=== PATIENT | male | born 1965 | race Caucasian/White ===

== ENCOUNTER 2017-07-21 13:08 | Inpatient (IN) | payer OTHER ==
[~2017-07-21] VITALS: Ht 180.3 cm; Wt 118.6 kg
[~2017-07-21 13:08] MED LIST: LIDOCAINE HCL 1% PF 5 ML SYRINGE OTHER ONE; PHENYLEPH/NS 1000 MCG/10 ML SYR IV ONE; PROPOFOL 200 MG/20 ML AMP IV ONE; SODIUM CHLORIDE 0.9% 10 ML VIAL IV ONE
[2017-07-21 13:15] VITALS: BP 121/61; PULSE 108; RESP 20; TEMP 97.5; O2SAT 96
[2017-07-21] MEDS ORDERED: PIPERACIL-TAZO 3.375 GM PREMIX 50 ML IV ONE (13:45)
[2017-07-21] MEDS ORDERED: VANCOMYCIN INJ 1,000 MG in SODIUM CHLOR 0.9% 250 ML INJ 250 ML IV ONE (13:45)
[2017-07-21] MEDS ORDERED: HYDROmorphone HCL PF 1 MG/ML VIAL IV PUSH ONE (13:45)
[2017-07-21 14:20] LABS: BASOPHIL # 0.1 TH/MM3 (0-0.2); BASOPHIL % 0.7 % (0.0-2.0); EOSINOPHIL # 0.1 TH/MM3 (0-0.4); EOSINOPHIL % 0.6 % (0.0-4.0); HEMATOCRIT 38.2 % (39.0-51.0); HEMOGLOBIN 13.7 GM/DL (13.0-17.0); LYMPH % 10.7 % (9.0-44.0); LYMPHOCYTE # 1.2 TH/MM3 (1.0-4.8); MEAN CELL VOLUME 87.8 FL (80.0-100.0); MEAN CORPUSCULAR HEMOGLOBIN 31.6 PG (27.0-34.0); MEAN PLATELET VOLUME 7.4 FL (7.0-11.0); MONO % 8.9 % (0.0-8.0); NEUT % 79.1 % (16.0-70.0); PLATELET COUNT 272 TH/MM3 (150-450); RED BLOOD COUNT 4.35 MIL/MM3 (4.50-5.90); RED CELL DISTRIBUTION WIDTH 12.9 % (11.6-17.2); WHITE BLOOD COUNT 11.3 TH/MM3 (4.0-11.0)
--- NOTE | 2017-07-21 14:24 | RADRPT ---
EXAM DATE: 07/21/2017 2:14 PM EDT AGE/SEX: 52 years / Male INDICATIONS: Pain. Diabetic foot. CLINICAL DATA: This is the patient's initial encounter. Patient reports that signs and symptoms have been present for 1 day and indicates a pain score of 10/10. MEDICAL/SURGICAL HISTORY: Diabetes. None. COMPARISON: No prior [facility] exams available for comparison. FINDINGS: Multiple views of the foot reveal soft tissue swelling involving the region surrounding the fifth toe . Scattered subcutaneous air is seen between the fourth and fifth metatarsal bones. No radiopaque for eign body. No destructive changes within the adjacent bony structures. No fracture or dislocation. CONCLUSION: Radiographic findings consistent with cellulitis. Electronically signed by: Lukasz Rajan MD 07/21/2017 2:22 PM EDT
--- NOTE | 2017-07-21 14:24 | RADRPT ---
EXAM DATE: 07/21/2017 2:18 PM EDT AGE/SEX: 52 years / Male INDICATIONS: Pain. CLINICAL DATA: This is the patient's initial encounter. Patient reports that signs and symptoms have been present for 1 day and indicates a pain score of 10/10. MEDICAL/SURGICAL HISTORY: Diabetes. None. COMPARISON: No prior [facility] exams available for comparison. FINDINGS: Bony structures are intact and in normal alignment. Degenerative changes involving the tibiotalar og nt as well as the mid foot. Spurring of the calcaneus.. Osseous density is normal. Soft tissues are unremarkable. No radiopaque foreign bodies seen. CONCLUSION: Degenerative changes. No acute abnormality. Electronically signed by: Lukasz Rajan MD 07/21/2017 2:23 PM EDT
[2017-07-21] MEDS ORDERED: HYDROmorphone HCL PF 2 MG/ML VIAL IV PUSH ONE (14:30)
[2017-07-21 14:33] LABS: INTERNATIONAL NORMALIZED RATIO 1.1 RATIO; LACTIC ACID SEPSIS PROTOCOL 2.1 mmol/L (0.4-2.0); PROTHROMBIN TIME - PATIENT 11.4 SEC (9.8-11.6)
[2017-07-21 14:37] LABS: ALBUMIN 3.1 GM/DL (3.4-5.0); AST (GOT) 16 U/L (15-37); BLOOD UREA NITROGEN 18 MG/DL (7-18); CALCIUM 9.1 MG/DL (8.5-10.1); CHLORIDE 91 MEQ/L (98-107); CREATININE 1.62 MG/DL (0.60-1.30); GLOMERULAR FILTRATION RATE 45 ML/MIN (>89); GLUCOSE,RANDOM 330 MG/DL (74-106); SODIUM (NA) 127 MEQ/L (136-145)
[2017-07-21 14:38] LABS: ALT (GPT) 17 U/L (12-78)
[2017-07-21 14:39] VITALS: BP 110/72; PULSE 101; RESP 18; O2SAT 97
[2017-07-21 14:40] LABS: ALKALINE PHOSPHATASE 121 U/L (45-117); TOTAL PROTEIN 8.2 GM/DL (6.4-8.2)
[2017-07-21] MEDS ORDERED: SENNOSIDES 8.6 MG TAB PO PRN (15:45)
[2017-07-21] MEDS ORDERED: ACETAMINOPHEN/HYDROcodone 325 MG/5 MG TAB PO PRN (15:45)
[2017-07-21] MEDS ORDERED: NALOXONE HCL 0.4 MG/ML AMP IV PUSH PRN (15:45)
[2017-07-21] MEDS ORDERED: LACTULOSE SYRUP 20 GM/30 ML CUP PO PRN (15:45)
[2017-07-21] MEDS ORDERED: MAGNESIUM HYDROXIDE SUSP 30 ML CUP PO PRN (15:45)
[2017-07-21] MEDS ORDERED: BISACODYL 10 MG SUPP RECTAL PRN (15:45)
[2017-07-21] MEDS ORDERED: ACETAMINOPHEN/HYDROcodone 325 MG/10 MG TAB PO PRN (15:45)
[2017-07-21] MEDS ORDERED: METOCLOPRAMIDE HCL 10 MG/2 ML VIAL IV PUSH PRN (15:45)
--- NOTE | 2017-07-21 15:52 | PD ---
HPI Chief Complaint: Skin Problem Time Seen by Provider: 13:29 Travel History International Travel<30 days: No Contact w/Intl Traveler<30days: No Traveled to known affect area: No History of Present Illness HPI 52-year-old male that presents to the ED for evaluation of right foot infection. Per patient he has a significant history of left foot infection in the past. Per patient he lost his foot secondary to infection. He has a history of MRSA. He states that he is not from town but currently lives here now. Per patient he had the amputation done at a different hospital in a different area. Per patient is been doing well except that he was recently evaluated for an abscess on his back that require incision and drainage and is currently on antibiotics. Per patient he developed the swelling and pain on the right foot since this morning. There is significant swelling and erythema as well as darkening of the skin on the right fifth toe. Very tender to touch. Warm to touch. Patient denies any fevers chills or sweats. Per patient the pain is 10 out of 10. Denies any other medical issues. He denies any history of diabetes. He does have an allergy to tetanus vaccine. Has not seen anybody for this. No other medical issues. PFSH Past Medical History Diminished Hearing: No ?: Not Social History Alcohol Use: Yes Tobacco Use: Yes Substance Use: Yes (MARIJUANA, COCAINE) Allergies-Medications (Allergen,Severity, Reaction): Coded Allergies: Tetanus Vaccines and Toxoid (Verified Allergy, Intermediate, ARM SWELLING , VOMITING, 07/21/17) Reported Meds & Prescriptions Reported Meds & Active Scripts Active No Active Prescriptions or Reported Medications Review of Systems Except as stated in HPI: all other systems reviewed are Neg Physical Exam Narrative GENERAL: SKIN: Warm and dry. HEAD: Atraumatic. Normocephalic. EYES: Pupils equal and round. No scleral icterus. No injection or drainage. ENT: No nasal bleeding or discharge. Mucous membranes pink and moist. Tongue is midline. No uvula deviation. NECK: Trachea midline. No JVD. CARDIOVASCULAR: Regular rate and rhythm. No murmurs, S3, S4. RESPIRATORY: No accessory muscle use. Clear to auscultation. Breath sounds equal bilaterally. GASTROINTESTINAL: Abdomen soft, non-tender, nondistended. Hepatic and splenic margins not palpable. MUSCULOSKELETAL: Extremities without clubbing, cyanosis, or edema. No obvious deformities. Full range of motion of the upper and lower extremities bilaterally. Patient does have significant erythema and swelling noted on the dorsal and plantar aspect of the lateral right foot. Patient does have black/ purple looking and swollen right fifth toe with erythema and swelling noted on the fourth and third toes. Very warm to touch. Some purulence noted on the plantar aspect. Patient appears to have some all dressings on the area. 2+ pulses bilaterally. NEUROLOGICAL: Awake and alert. No obvious cranial nerve deficits. Motor grossly within normal limits. Five out of 5 muscle strength in the arms and legs. Normal speech. PSYCHIATRIC: Appropriate mood and affect; insight and judgment normal. Data Data Last Documented VS Vital Signs Date Time Temp Pulse Resp B/P (MAP) Pulse Ox O2 Delivery O2 Flow Rate FiO2 07/21/17 14:39 101 18 110/72 (85) 97 Room Air 07/21/17 13:15 97.5 Orders Orders Complete Blood Count With Diff (07/21/17 13:38) Blood Culture (07/21/17 13:38) Wound Culture And Gram Stain (07/21/17 13:38) Wound Care (07/21/17 13:38) Prothrombin Time / Inr (Pt) (07/21/17 13:38) Act Partial Throm Time (Ptt) (07/21/17 13:38) C-Reactive Protein (Crp) (07/21/17 13:38) Magnesium (Mg) (07/21/17 13:38) Iv Access Insert/Monitor (07/21/17 13:38) Hydromorphone Pf Inj (Dilaudid Pf Inj) (07/21/17 13:45) Vancomycin Inj (Vancomycin Inj) (07/21/17 13:45) Piperacil-Tazo 3.375 Gm Premix (Zosyn 3. (07/21/17 13:45) Lactic Acid Sepsis Protocol (07/21/17 13:38) Foot, Complete ([id number]) (07/21/17 ) Ankle, Complete ([id number]) (07/21/17 ) Comprehensive Metabolic Panel (07/21/17 13:38) Hydromorphone Pf Inj (Dilaudid Pf Inj) (07/21/17 14:30) Mri Foot W&W/O Contrast (07/21/17 ) Admit To Inpatient (07/21/17 ) Vital Signs (Adult) Q4H (07/21/17 15:36) Activity Oob Ad Cande (07/21/17 15:36) Diet Npo (07/21/17 Dinner) Sodium Chlor 0.9% 1000 Ml Inj (Ns 1000 M (07/21/17 15:36) Sodium Chloride 0.9% Flush (Ns Flush) (07/21/17 15:45) Sodium Chloride 0.9% Flush (Ns Flush) (07/21/17 21:00) Metoclopramide Inj (Reglan Inj) (07/21/17 15:45) Basic Metabolic Panel (Bmp) (07/22/17 06:00) Complete Blood Count With Diff (07/22/17 06:00) Naloxone Inj (Narcan Inj) (07/21/17 15:45) Docusate Sodium-Senna (Yahaira-Colace) (07/21/17 21:00) Magnesium Hydroxide Liq (Milk Of Magnesi (07/21/17 15:45) Sennosides (Senokot) (07/21/17 15:45) Bisacodyl Supp (Dulcolax Supp) (07/21/17 15:45) Lactulose Liq (Lactulose Liq) (07/21/17 15:45) Inpatient Certification (07/21/17 ) Hemoglobin (Hgb) A1c (07/21/17 15:36) Vancomycin Inj (Vancomycin Inj) (07/21/17 15:45) Piperacil-Tazo 3.375 Gm Premix (Zosyn 3. (07/21/17 15:45) Admit Order (Ed Use Only) (07/21/17 15:38) Arterial Segmt Dopp Ltd Ese (07/21/17 ) Acetamin-Hydrocod 325-5 Mg ([place] 5-325 (07/21/17 15:45) Acetamin-Hydrocod 325-10 Mg ([place] 10-32 (07/21/17 15:45) Morphine Inj (Morphine Inj) (07/21/17 15:45) Labs Laboratory Tests Test 07/21/17 13:40 White Blood Count 11.3 TH/MM3 Red Blood Count 4.35 MIL/MM3 Hemoglobin 13.7 GM/DL Hematocrit 38.2 % Mean Corpuscular Volume 87.8 FL Mean Corpuscular Hemoglobin 31.6 PG Mean Corpuscular Hemoglobin Concent 36.0 % Red Cell Distribution Width 12.9 % Platelet Count 272 TH/MM3 Mean Platelet Volume 7.4 FL Neutrophils (%) (Auto) 79.1 % Lymphocytes (%) (Auto) 10.7 % Monocytes (%) (Auto) 8.9 % Eosinophils (%) (Auto) 0.6 % Basophils (%) (Auto) 0.7 % Neutrophils # (Auto) 9.0 TH/MM3 Lymphocytes # (Auto) 1.2 TH/MM3 Monocytes # (Auto) 1.0 TH/MM3 Eosinophils # (Auto) 0.1 TH/MM3 Basophils # (Auto) 0.1 TH/MM3 CBC Comment AUTO DIFF Differential Comment AUTO DIFF CONFIRMED Prothrombin Time 11.4 SEC Prothromb Time International Ratio 1.1 RATIO Activated Partial Thromboplast Time 30.3 SEC Blood Urea Nitrogen 18 MG/DL Creatinine 1.62 MG/DL Random Glucose 330 MG/DL Total Protein 8.2 GM/DL Albumin 3.1 GM/DL Calcium Level 9.1 MG/DL Magnesium Level 2.0 MG/DL Alkaline Phosphatase 121 U/L Aspartate Amino Transf (AST/SGOT) 16 U/L Alanine Aminotransferase (ALT/SGPT) 17 U/L Total Bilirubin 1.0 MG/DL Sodium Level 127 MEQ/L Potassium Level 3.7 MEQ/L Chloride Level 91 MEQ/L Carbon Dioxide Level 26.0 MEQ/L Anion Gap 10 MEQ/L Estimat Glomerular Filtration Rate 45 ML/MIN Lactic Acid Level 2.1 mmol/L C-Reactive Protein 14.00 MG/DL [facility] Medical Decision Making Medical Screen Exam Complete: Yes Emergency Medical Condition: Yes Medical Record Reviewed: Yes Interpretation(s) CBC & BMP Diagram 07/21/17 13:40 Total Protein 8.2, Albumin 3.1 L, Calcium Level 9.1, Magnesium Level 2.0, Alkaline Phosphatase 121 H, Aspartate Amino Transf (AST/SGOT) 16, Alanine Aminotransferase (ALT/SGPT) 17, Total Bilirubin 1.0 Last Impressions Foot X-Ray 07/21/17 0000 Signed Impressions: CONCLUSION: Radiographic findings consistent with cellulitis. Ankle X-Ray 07/21/17 0000 Signed Impressions: CONCLUSION: Degenerative changes. No acute abnormality. Lactic acid elevated. CRP of 14 Differential Diagnosis Foot infection versus osteomyelitis versus necrosis versus sepsis Narrative Course 52-year-old male that presents to the ED for evaluation of right foot infection. Patient was properly examined and was found to have signs and symptoms consistent appears to be significant infection and likely of the myelitis and necrosis of the skin secondary to infection. Patient is a good pulses palpated as well as with Doppler. Case was discussed with Dr. Smith for podiatry who recommends that if x-ray does not show osteomyelitis to do MRI as well as ABIs and start patient antibodies and admit to medicine. This was discussed with the patient agrees with admission. Labs and imaging show leukocytosis and elevated CRP. Patient does appear to have elevated blood sugars likely possible diabetes. Patient was started on IV antibiotics and pain medication. Case discussed with Dr. Hamlin who agrees to admission to her service. Sepsis Criteria SIRS Criteria (2 or more): Heart rate over 90 Sepsis Criteria (SIRS+source): Infect source susp/known Severe Sepsis (+one): Lactate >2 Diagnosis Primary Impression: Right foot infection Additional Impression: Sepsis Qualified Codes: A41.9 - Sepsis, unspecified organism Admitting Information Admitting Physician Requests: Admit Scripts No Active Prescriptions or Reported Meds Saulo Gonzalez July 21, 2017 15:52
[2017-07-21 16:00] VITALS: BP 113/75; PULSE 93; RESP 17; TEMP 98; O2SAT 97
--- NOTE | 2017-07-21 16:10 | PD ---
Physical Exam Narrative I, Dr. Ordaz, have reviewed the advance practice practitioner's documentation and am in agreement, met with the patient face to face, made the diagnosis, and the medical decision making was done by me. *My assessment and Findings: Osteomyelitis vs. gangrene 52yo M with foul smelling necrotic appearing right fifth toe. Pt said it just happened today but is probably infected for a longer period of time. Podiatry was consulted and pt was empirically covered with broad spectrum antibiotics. Labs reviewed, WBC 11.3. Lactic acid mildly elevated at 2.1. C-reactive protein elevated at 14. Glucose elevated at 330 but pt with normal anion gap. Creatinine mildly elevated at 1.62. No prior to compare. Xray right foot consistent with cellulitis. Pt accepted to Dr. Hamlin's service. Data Data Last Documented VS Vital Signs Date Time Temp Pulse Resp B/P (MAP) Pulse Ox O2 Delivery O2 Flow Rate FiO2 07/21/17 14:39 101 18 110/72 (85) 97 Room Air 07/21/17 13:15 97.5 Orders Orders Complete Blood Count With Diff (07/21/17 13:38) Blood Culture (07/21/17 13:38) Wound Culture And Gram Stain (07/21/17 13:38) Wound Care (07/21/17 13:38) Prothrombin Time / Inr (Pt) (07/21/17 13:38) Act Partial Throm Time (Ptt) (07/21/17 13:38) C-Reactive Protein (Crp) (07/21/17 13:38) Magnesium (Mg) (07/21/17 13:38) Iv Access Insert/Monitor (07/21/17 13:38) Hydromorphone Pf Inj (Dilaudid Pf Inj) (07/21/17 13:45) Vancomycin Inj (Vancomycin Inj) (07/21/17 13:45) Piperacil-Tazo 3.375 Gm Premix (Zosyn 3. (07/21/17 13:45) Lactic Acid Sepsis Protocol (07/21/17 13:38) Foot, Complete ([id number]) (07/21/17 ) Ankle, Complete ([id number]) (07/21/17 ) Comprehensive Metabolic Panel (07/21/17 13:38) Hydromorphone Pf Inj (Dilaudid Pf Inj) (07/21/17 14:30) Mri Foot W&W/O Contrast (07/21/17 ) Admit To Inpatient (07/21/17 ) Vital Signs (Adult) Q4H (07/21/17 15:36) Activity Oob Ad Cande (07/21/17 15:36) Diet Npo (07/21/17 Dinner) Sodium Chlor 0.9% 1000 Ml Inj (Ns 1000 M (07/21/17 15:36) Sodium Chloride 0.9% Flush (Ns Flush) (07/21/17 15:45) Sodium Chloride 0.9% Flush (Ns Flush) (07/21/17 21:00) Metoclopramide Inj (Reglan Inj) (07/21/17 15:45) Basic Metabolic Panel (Bmp) (07/22/17 06:00) Complete Blood Count With Diff (07/22/17 06:00) Naloxone Inj (Narcan Inj) (07/21/17 15:45) Docusate Sodium-Senna (Yahaira-Colace) (07/21/17 21:00) Magnesium Hydroxide Liq (Milk Of Magnesi (07/21/17 15:45) Sennosides (Senokot) (07/21/17 15:45) Bisacodyl Supp (Dulcolax Supp) (07/21/17 15:45) Lactulose Liq (Lactulose Liq) (07/21/17 15:45) Inpatient Certification (07/21/17 ) Hemoglobin (Hgb) A1c (07/21/17 15:36) Piperacil-Tazo 3.375 Gm Premix (Zosyn 3. (07/21/17 23:00) Admit Order (Ed Use Only) (07/21/17 15:38) Arterial Segmt Dopp Ltd Ese (07/21/17 ) Acetamin-Hydrocod 325-5 Mg ([place] 5-325 (07/21/17 15:45) Acetamin-Hydrocod 325-10 Mg ([place] 10-32 (07/21/17 15:45) Morphine Inj (Morphine Inj) (07/21/17 15:45) Vancomycin Inj (Vancomycin Inj) (07/22/17 03:00) Labs Laboratory Tests Test 07/21/17 13:40 White Blood Count 11.3 TH/MM3 Red Blood Count 4.35 MIL/MM3 Hemoglobin 13.7 GM/DL Hematocrit 38.2 % Mean Corpuscular Volume 87.8 FL Mean Corpuscular Hemoglobin 31.6 PG Mean Corpuscular Hemoglobin Concent 36.0 % Red Cell Distribution Width 12.9 % Platelet Count 272 TH/MM3 Mean Platelet Volume 7.4 FL Neutrophils (%) (Auto) 79.1 % Lymphocytes (%) (Auto) 10.7 % Monocytes (%) (Auto) 8.9 % Eosinophils (%) (Auto) 0.6 % Basophils (%) (Auto) 0.7 % Neutrophils # (Auto) 9.0 TH/MM3 Lymphocytes # (Auto) 1.2 TH/MM3 Monocytes # (Auto) 1.0 TH/MM3 Eosinophils # (Auto) 0.1 TH/MM3 Basophils # (Auto) 0.1 TH/MM3 CBC Comment AUTO DIFF Differential Comment AUTO DIFF CONFIRMED Prothrombin Time 11.4 SEC Prothromb Time International Ratio 1.1 RATIO Activated Partial Thromboplast Time 30.3 SEC Blood Urea Nitrogen 18 MG/DL Creatinine 1.62 MG/DL Random Glucose 330 MG/DL Total Protein 8.2 GM/DL Albumin 3.1 GM/DL Calcium Level 9.1 MG/DL Magnesium Level 2.0 MG/DL Alkaline Phosphatase 121 U/L Aspartate Amino Transf (AST/SGOT) 16 U/L Alanine Aminotransferase (ALT/SGPT) 17 U/L Total Bilirubin 1.0 MG/DL Sodium Level 127 MEQ/L Potassium Level 3.7 MEQ/L Chloride Level 91 MEQ/L Carbon Dioxide Level 26.0 MEQ/L Anion Gap 10 MEQ/L Estimat Glomerular Filtration Rate 45 ML/MIN Lactic Acid Level 2.1 mmol/L C-Reactive Protein 14.00 MG/DL [facility] Supervised Visit with [facility]AN[facility]: Yes Diagnosis Primary Impression: Right foot infection Additional Impression: Sepsis Qualified Codes: A41.9 - Sepsis, unspecified organism Admitting Information Admitting Physician Requests: Admit Scripts No Active Prescriptions or Reported Meds Sherrell Ordaz DO July 21, 2017 16:10
[2017-07-21] MEDS: SODIUM CHLOR 0.9% 1000 ML INJ 1,000 ML IV SCH (17:06)
--- NOTE | 2017-07-21 17:25 | RADRPT ---
EXAM DATE: 07/21/2017 4:49 PM EDT AGE/SEX: 52 years / Male INDICATIONS: . Infection toes of right foot. CLINICAL DATA: This is the patient's initial encounter. Patient reports that signs and symptoms have been present for 1 day and indicates a pain score of 2/10. MEDICAL/SURGICAL HISTORY: Cardiovascular disease. Diabetes mellitus type II. . Left leg amputa tion. COMPARISON: No prior [facility] exams available for comparison. TECHNIQUE: Multiplanar, multisequence MRI examination was performed without contrast and after th e intravenous administration of 20cc ml Omniscan (gadodiamide) single exam dose. FINDINGS: Bones: Bone marrow edema with cortical destructive changes are identified involving the fifth metatar sophalangeal joint, distal fifth metatarsal and fifth toe. Joint Spaces: Destructive inflammatory arthropathy of the fifth metatarsophalangeal joint. Small join ts of the foot are otherwise intact. Tendons: The flexor tendons are intact. Soft Tissues: Significant soft tissue swelling is present throughout the dorsum of the foot and surro unding the fifth metatarsal phalangeal joint as well as the fifth toe. Other: The plantar fascia is intact. No signal abnormalities are seen in the plantar musculature. Post Contrast: Bony and articular enhancement involving the fifth toe and fifth metatarsal phalangeal joint as described above. There are no other abnormal areas of enhancement in the marrow, muscle or soft tissues on images obtained after intravenous administration of gadolinium. CONCLUSION: 1. 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 2. No other focal bony abnormality is noted. Electronically signed by: Julio C Rodrigues MD 07/21/2017 5:24 PM EDT
[2017-07-21] MEDS ORDERED: GADODIAMIDE PF 287 MG/ML 20 ML VIAL (for RAD MRI) IVCONTRAST ONE (17:42)
--- NOTE | 2017-07-21 17:44 | HHI.HP ---
[facility] Primary Care Physician No Primary Care Physician Admission Diagnosis acute nectrotic toe and right foot cellulitis, sepsis Diagnoses: Chief Complaint: Necrotic right fifth toe, right foot cellulitis Travel History International Travel<30 Days: No Contact w/Intl Traveler <30 Da: No Traveled to Known Affected Are: No Sepsis Criteria SIRS Criteria (2 or more): Heart rate over 90, WBC > 05272, < 4000 or > 10% bands Sepsis Criteria (SIRS+source): Infect source susp/known Severe Sepsis (+one): Lactate >2, Acute Oliguria/Renal Failure Criteria Outcome: Meets SIRS criteria, Meets sepsis criteria, Meets severe sepsis criteria History of Present Illness Written by Anette Fairchild, acting as scribe for Dr. Hamlin on 07/21/17 at 17:52. Patient is a 52-year-old male with past medical history of PAD, multiple left lower extremity surgery and amputation who came into the hospital for evaluation of right necrotic fifth toe and right foot cellulitis. Patient states that he just woke up this morning, went to the bathroom and saw his right toe black. States he "flipped out and did not know what to do." Patient states that he checks his foot daily but does not really pay attention. Denies any trauma or insect bite but also reports that in the past he has had previous spider bites on his legs but doesn't recall any this time. Denies any medical history including diabetes, HTN and reports it runs in his family but he does not have it. Patient also states that he had abscess on his back that was packed, and he was taking antibiotic for it. Patient states that his left lower extremity has multiple surgeries and wounds he finally had an amputation last September 2016. Complaints of pain and discomfort right lower extremity, unrelieved by pain medication, aggravated by movement, aggravated by MRI, and describes the pain as a nagging pain. Denies SOB/ dyspnea. Denies chest pain, palpitations, headaches, dizziness. Denies fevers, chills, n/v/d. Denies hematuria, dysuria. White count 11.3, with bandemia, hyponatremia Na 127, elevated creatinine 1.62, EGFR 45 Blood glucose 330, lactic acid 2.1 Elevated C-reactive protein 14 Foot x-ray showed destructive bone changes with associated bone marrow edema and abnormal enhancement involving the distal fifth metatarsal, fifth met tarsophalangeal joint and fifth toe characteristic of osteomyelitis and septic arthritis. 2. No other focal bony abnormalities noted Ankle x-ray showed degenerative changes. No acute abnormality Foot MRI showed radiographic findings consistent with cellulitis Review of Systems Except as stated in HPI: all other systems reviewed are Neg Past Family Social History Past Medical History MRSA PAD Past Surgical History Multiple left lower extremity surgeries Left BKA Reported Medications None Allergies: Coded Allergies: Tetanus Vaccines and Toxoid (Verified Allergy, Intermediate, ARM SWELLING , VOMITING, 07/21/17) Active Ordered Medications Current Medications Medications (Trade) Dose Ordered Sig/Payton Route Start Time Stop Time Status Last Admin Sodium Chloride 1,000 ml @ 100 mls/hr Q10H IV 07/21/17 15:36 07/21/17 17:06 (NS Flush) 2 ml UNSCH PRN IV FLUSH 07/21/17 15:45 (NS Flush) 2 ml BID IV FLUSH 07/21/17 21:00 (Reglan Inj) 5 mg Q6H PRN IV PUSH 07/21/17 15:45 (Narcan Inj) 0.4 mg UNSCH PRN IV PUSH 07/21/17 15:45 (Yahaira-Colace) 1 tab BID PO 07/21/17 21:00 (Milk Of Magnesia Liq) 30 ml Q12H PRN PO 07/21/17 15:45 (Senokot) 17.2 mg Q12H PRN PO 07/21/17 15:45 (Dulcolax Supp) 10 mg DAILY PRN RECTAL 07/21/17 15:45 (Lactulose Liq) 30 ml DAILY PRN PO 07/21/17 15:45 Vancomycin HCl 1500 mg/Sodium Chloride 515 ml @ 257.5 mls/ hr Q12H IV 07/22/17 03:00 Piperacillin Sod/ Tazobactam Sod 50 ml @ 100 mls/hr Q8H IV 07/21/17 23:00 (Morphine Inj) 1 mg Q4H PRN IV PUSH 07/21/17 15:45 (Percocet 7.5-325 Mg) 1 tab Q4H PRN PO 07/21/17 18:00 UNV (Percocet 10-325 Mg) 1 tab Q4H PRN PO 07/21/17 18:00 UNV (Dilaudid Pf Inj) 0.5 mg Q4H PRN IV PUSH 07/21/17 18:00 UNV Family History Mother had diabetes, heart problems Father side of the family had cancer -stomach cancer Social History Recently moved to the area Alcohol use, not daily, mostly beer Current a smoker smoking half a pack per day Marijuana use Physical Exam Vital Signs Vital Signs Date Time Temp Pulse Resp B/P (MAP) Pulse Ox O2 Delivery O2 Flow Rate FiO2 07/21/17 14:39 101 18 110/72 (85) 97 Room Air 07/21/17 13:15 97.5 108 20 121/61 (81) 96 Physical Exam GENERAL: This is an overweight, well-developed patient, in no apparent distress. SKIN: Cool and dry. Right lower extremity erythema, trace edema, appears to be with venous stasis. Back area 2 1 cm open wound with bed is clean, minimal scant drainage noted HEAD: Normocephalic. EYES: Pupils equal round and reactive. Extraocular motions intact. No scleral icterus. No injection or drainage. ENT: Nose without bleeding. Throat without erythema. Uvula midline. Airway patent. NECK: Trachea midline. CARDIOVASCULAR: Regular rate and rhythm without murmurs, gallops, or rubs. RESPIRATORY: Clear to auscultation. Breath sounds equal bilaterally. No wheezes , rales, or rhonchi. GASTROINTESTINAL: Abdomen soft, non-tender, protuberant. Bowel sounds active 4 MUSCULOSKELETAL: Left BKA. Right lower extremity venous stasis. The right foot edema +1, erythema, weak pulse. Fifth toe necrotic. At the base of fifth toe plantar area ulcer noted approximately 2 cm diameter -appearance of a diabetic ulcer NEUROLOGICAL: Awake and alert. Motor and sensory grossly within normal limits. Normal speech. Laboratory Laboratory Tests Test 07/21/17 13:40 White Blood Count 11.3 Red Blood Count 4.35 Hemoglobin 13.7 Hematocrit 38.2 Mean Corpuscular Volume 87.8 Mean Corpuscular Hemoglobin 31.6 Mean Corpuscular Hemoglobin Concent 36.0 Red Cell Distribution Width 12.9 Platelet Count 272 Mean Platelet Volume 7.4 Neutrophils (%) (Auto) 79.1 Lymphocytes (%) (Auto) 10.7 Monocytes (%) (Auto) 8.9 Eosinophils (%) (Auto) 0.6 Basophils (%) (Auto) 0.7 Neutrophils # (Auto) 9.0 Lymphocytes # (Auto) 1.2 Monocytes # (Auto) 1.0 Eosinophils # (Auto) 0.1 Basophils # (Auto) 0.1 CBC Comment AUTO DIFF Differential Comment AUTO DIFF CONFIRMED Prothrombin Time 11.4 Prothromb Time International Ratio 1.1 Activated Partial Thromboplast Time 30.3 Blood Urea Nitrogen 18 Creatinine 1.62 Random Glucose 330 Total Protein 8.2 Albumin 3.1 Calcium Level 9.1 Magnesium Level 2.0 Alkaline Phosphatase 121 Aspartate Amino Transf (AST/SGOT) 16 Alanine Aminotransferase (ALT/SGPT) 17 Total Bilirubin 1.0 Sodium Level 127 Potassium Level 3.7 Chloride Level 91 Carbon Dioxide Level 26.0 Anion Gap 10 Estimat Glomerular Filtration Rate 45 Lactic Acid Level 2.1 C-Reactive Protein 14.00 Date/Time Source Procedure Growth Status 07/21/17 13:40 Blood Peripheral Aerobic Blood Culture Pending Received 07/21/17 13:40 Blood Peripheral Anaerobic Blood Culture Pending Received 07/21/17 13:46 Wound Foot Gram Stain Pending Received 07/21/17 13:46 Wound Foot Wound Culture Pending Received Result Diagram: 07/21/17 1340 07/21/17 1340 Imaging Last Impressions Foot X-Ray 07/21/17 0000 Signed Impressions: CONCLUSION: Radiographic findings consistent with cellulitis. Foot MRI 07/21/17 0000 Signed Impressions: CONCLUSION: 1. Destructive bone changes with associated bone marrow edema and abnormal enh ancement involving the distal fifth metatarsal, fifth metatarsophalangeal joint and fifth toe characteristic of osteomyelitis and septic arthritis. 2. No other focal bony abnormality is noted. Ankle X-Ray 07/21/17 0000 Signed Impressions: CONCLUSION: Degenerative changes. No acute abnormality. Caprini VTE Risk Assessment Caprini VTE Risk Assessment: Mod/High Risk (score >= 2) Caprini Risk Assessment Model Point Value = 1 Point Value = 2 Point Value = 3 Point Value = 5 Age 41-60 Minor surgery BMI > 25 kg/m2 Swollen legs Varicose veins or History of unexplained or recurrent spontaneous Oral contraceptives or hormone replacement Sepsis (< 1 month) Serious lung disease, including pneumonia (< 1 month) Abnormal pulmonary function Acute myocardial infarction Congestive heart failure (< 1 month) History of inflammatory bowel disease Medical patient at bed rest Age 61-74 Arthroscopic surgery Major open surgery (> 45 min) Laparoscopic surgery (> 45 min) Malignancy Confined to bed (> 72 hours) Immobilizing plaster cast Central venous access Age >= 75 History of VTE Family history of VTE Factor V Leiden Prothrombin [id number] Lupus anticoagulant Anticardiolipin antibodies Elevated serum homocysteine Heparin-induced thrombocytopenia Other congenital or acquired thrombophilia Stroke (< 1 month) Elective arthroplasty Hip, pelvis, or leg fracture Acute spinal cord injury (< 1 month) Prophylaxis Regimen Total Risk Factor Score Risk Level Prophylaxis Regimen 0-1 Low Early ambulation 2 Moderate Order ONE of the following: *Sequential Compression Device (SCD) *Heparin 5000 units SQ BID 3-4 Higher Order ONE of the following medications: *Heparin 5000 units SQ TID *Enoxaparin/Lovenox 40 mg SQ daily (WT < 150 kg, CrCl > 30 mL/min) *Enoxaparin/Lovenox 30 mg SQ daily (WT < 150 kg, CrCl > 10-29 mL/min) *Enoxaparin/Lovenox 30 mg SQ BID (WT < 150 kg, CrCl > 30 mL/min) AND/OR *Sequential Compression Device (SCD) 5 or more Highest Order ONE of the following medications: *Heparin 5000 units SQ TID (Preferred with Epidurals) *Enoxaparin/Lovenox 40 mg SQ daily (WT < 150 kg, CrCl > 30 mL/min) *Enoxaparin/Lovenox 30 mg SQ daily (WT < 150 kg, CrCl > 10-29 mL/min) *Enoxaparin/Lovenox 30 mg SQ BID (WT < 150 kg, CrCl > 30 mL/min) AND *Sequential Compression Device (SCD) Assessment and Plan Problem List: (1) Right foot infection ICD Code: L08.9 - Local infection of the skin and subcutaneous tissue, unspecified Status: Acute (2) Sepsis ICD Code: A41.9 - Sepsis, unspecified organism Status: Acute Assessment and Plan Patient is a 52-year-old male with past medical history of PAD, multiple left lower extremity surgery and amputation who came into the hospital for evaluation of right necrotic fifth toe and right foot cellulitis. Right foot cellulitis, right fifth toe necrosis possible osteomyelitis Meets SIRS, sepsis, severe sepsis criteria -White count 11.3, with bandemia, hyponatremia Na 127, elevated creatinine 1.62, EGFR 45 -Blood glucose 330, lactic acid 2.1 -Elevated C-reactive protein 14 -Foot x-ray showed destructive bone changes with associated bone marrow edema and abnormal enhancement involving the distal fifth metatarsal, fifth met tarsophalangeal joint and fifth toe characteristic of osteomyelitis and septic arthritis. 2. No other focal bony abnormalities noted -Ankle x-ray showed degenerative changes. No acute abnormality -Foot MRI showed radiographic findings consistent with cellulitis -Podiatry, Dr. Amos consulted for further evaluation and recommendation -Start IV antibiotics vancomycin, Zosyn -Blood cultures, labs follow-up -IV fluid for hydration -Pain medication Percocet, IV Dilaudid for breakthrough pain Acute kidney injury, possible chronic kidney disease unknown stage -Creatinine 1.62 -Unable to find out baseline creatinine -Avoid nephrotoxic -IVF For hydration -Follow renal indicis Hyperglycemia -Denies history of diabetes, admits to family history of diabetes -Check hemoglobin A1c -Diabetic diet PAD, PVD Diabetic ulcer -Wound care by nursing Tobacco use -Nicotine patch. Counselled DVT prop Heparin This note was transcribed by nasir Fairchild. I, Dr. Marcelina Hamlin personally performed the history, physical exam, and medical decision making; and confirmed the accuracy of the information in the transcribed note. Authenticated by Dr. Marcelina Hamlin on 07/21/17 at 17:52 Code Status Full Code Discussed Condition With Patient, nursing, ED attending Physician Certification 2 Midnight Certification Type: Admission for Inpatient Services Order for Inpatient Services The services are ordered in accordance with Medicare regulations or non- Medicare payer requirements, as applicable. In the case of services not specified as inpatient-only, they are appropriately provided as inpatient services in accordance with the 2-midnight benchmark. Estimated LOS (days): 3 days is the estimated time the patient will need to remain in the hospital, assuming treatment plan goals are met and no additional complications. Post-Hospital Plan: Not yet determined Problem Qualifiers (1) Sepsis: Qualified Codes: A41.9 - Sepsis, unspecified organism Anette Todd July 21, 2017 17:44 Marcelina Hamlin MD July 21, 2017 19:08
[2017-07-21] MEDS: oxyCODONE/ACETAMINOPHEN 10 MG/325 MG TAB PO PRN (18:47)
--- NOTE | 2017-07-21 19:09 | PD.CONS ---
History of Present Illness Service Foot and ankle surgery/podiatry Consult Requested By Reason for Consult Right foot infection Primary Care Physician No Primary Care Physician Diagnoses: History of Present Illness Podiatry consulted for this 52-year-old male that presented to the ED for evaluation of right foot infection. Patient states infection developed overnight. He is very concerned as he has a history of amputation to the left lower extremity, below the knee. Patient also reports a history of MRSA. Patient denies any nausea vomiting fevers or chills. States his pain is 10. Patient states he has not had this until evaluated and he does not follow a crew lead. Review of Systems Constitutional: DENIES: Fatigue, Fever Endocrine: DENIES: Heat/cold intolerance Ears, nose, mouth, throat: DENIES: Hearing loss Respiratory: DENIES: Cough, Shortness of breath Cardiovascular: DENIES: Chest pain Psychiatric: DENIES: Anxiety, Confusion Past Family Social History Allergies: Coded Allergies: Tetanus Vaccines and Toxoid (Verified Allergy, Intermediate, ARM SWELLING , VOMITING, 07/21/17) Past Medical History As per HPI Past Surgical History Left below the knee amputation noted Active Ordered Medications Current Medications Medications (Trade) Dose Ordered Sig/Payton Route Start Time Stop Time Status Last Admin Sodium Chloride 1,000 ml @ 100 mls/hr Q10H IV 07/21/17 15:36 07/21/17 17:06 (NS Flush) 2 ml UNSCH PRN IV FLUSH 07/21/17 15:45 (NS Flush) 2 ml BID IV FLUSH 07/21/17 21:00 07/21/17 21:46 (Reglan Inj) 5 mg Q6H PRN IV PUSH 07/21/17 15:45 (Narcan Inj) 0.4 mg UNSCH PRN IV PUSH 07/21/17 15:45 (Yahaira-Colace) 1 tab BID PO 07/21/17 21:00 (Milk Of Magnesia Liq) 30 ml Q12H PRN PO 07/21/17 15:45 (Senokot) 17.2 mg Q12H PRN PO 07/21/17 15:45 (Dulcolax Supp) 10 mg DAILY PRN RECTAL 07/21/17 15:45 (Lactulose Liq) 30 ml DAILY PRN PO 07/21/17 15:45 Vancomycin HCl 1500 mg/Sodium Chloride 515 ml @ 257.5 mls/ hr Q12H IV 07/22/17 03:00 Piperacillin Sod/ Tazobactam Sod 50 ml @ 100 mls/hr Q8H IV 07/21/17 23:00 07/21/17 22:01 (Morphine Inj) 1 mg Q4H PRN IV PUSH 07/21/17 15:45 (Percocet 7.5-325 Mg) 1 tab Q4H PRN PO 07/21/17 18:00 (Percocet 10-325 Mg) 1 tab Q4H PRN PO 07/21/17 18:00 07/21/17 18:47 (Dilaudid Pf Inj) 0.5 mg Q4H PRN IV PUSH 07/21/17 18:00 07/21/17 22:09 ([facility] ALL NURSING DEPARTME... UNSCH PRN .XX 07/21/17 19:57 07/22/17 19:56 Physical Exam Vital Signs Vital Signs Date Time Temp Pulse Resp B/P (MAP) Pulse Ox O2 Delivery O2 Flow Rate FiO2 07/21/17 16:00 98.0 93 17 113/75 (88) 97 07/21/17 14:39 101 18 110/72 (85) 97 Room Air 07/21/17 13:15 97.5 108 20 121/61 (81) 96 Physical Exam GENERAL: This is a well-nourished, well-developed patient, in no apparent distress. SKIN: Necrotic fifth digit right lower extremity HEAD: Atraumatic. EYES: Pupils equal round and reactive. ENT: Airway patent. NECK: Trachea midline. RESPIRATORY: Nonlabored breathing. MUSCULOSKELETAL:. Negative Homans sign bilaterally. NEUROLOGICAL: Awake and alert. Normal speech. Lower extremity physical exam: Vascular: Dorsalis pedis nonpalpable, posterior tibial nonpalpable. Capillary refill time within normal limits to digits 4 to right foot, ischemic fifth digit with no capillary refill time. Edema present right/left right foot Neuro: Gross sensation intact to bilateral lower extremity. Pinpoint sensation decreased. No hyperalgesia noted to bilateral lower extremity Dermatology: Increased edema and erythema noted to right lower extremity extending into right ankle. Ischemic necrotic fifth digit noted to metatarsophalangeal joint with sub-met 5 ulceration. Malodor noted, with crepitus and fluctuance noted on palpation. Musculoskeletal: Tender to palpation to right foot diffusely. Laboratory Laboratory Tests Test 07/21/17 13:40 White Blood Count 11.3 Red Blood Count 4.35 Hemoglobin 13.7 Hematocrit 38.2 Mean Corpuscular Volume 87.8 Mean Corpuscular Hemoglobin 31.6 Mean Corpuscular Hemoglobin Concent 36.0 Red Cell Distribution Width 12.9 Platelet Count 272 Mean Platelet Volume 7.4 Neutrophils (%) (Auto) 79.1 Lymphocytes (%) (Auto) 10.7 Monocytes (%) (Auto) 8.9 Eosinophils (%) (Auto) 0.6 Basophils (%) (Auto) 0.7 Neutrophils # (Auto) 9.0 Lymphocytes # (Auto) 1.2 Monocytes # (Auto) 1.0 Eosinophils # (Auto) 0.1 Basophils # (Auto) 0.1 CBC Comment AUTO DIFF Differential Comment AUTO DIFF CONFIRMED Prothrombin Time 11.4 Prothromb Time International Ratio 1.1 Activated Partial Thromboplast Time 30.3 Blood Urea Nitrogen 18 Creatinine 1.62 Random Glucose 330 Total Protein 8.2 Albumin 3.1 Calcium Level 9.1 Magnesium Level 2.0 Alkaline Phosphatase 121 Aspartate Amino Transf (AST/SGOT) 16 Alanine Aminotransferase (ALT/SGPT) 17 Total Bilirubin 1.0 Sodium Level 127 Potassium Level 3.7 Chloride Level 91 Carbon Dioxide Level 26.0 Anion Gap 10 Estimat Glomerular Filtration Rate 45 Lactic Acid Level 2.1 C-Reactive Protein 14.00 Date/Time Source Procedure Growth Status 07/21/17 13:40 Blood Peripheral Aerobic Blood Culture Pending Received 07/21/17 13:40 Blood Peripheral Anaerobic Blood Culture Pending Received 07/21/17 13:46 Wound Foot Gram Stain Pending Received 07/21/17 13:46 Wound Foot Wound Culture Pending Received Result Diagram: 07/21/17 1340 07/21/17 1340 Imaging Last Impressions Foot X-Ray 07/21/17 0000 Signed Impressions: CONCLUSION: Postoperative changes status post amputation of the right fifth toe and partial amputation of the right fifth metatarsal. Foot MRI 07/21/17 0000 Signed Impressions: CONCLUSION: 1. Destructive bone changes with associated bone marrow edema and abnormal enh ancement involving the distal fifth metatarsal, fifth metatarsophalangeal joint and fifth toe characteristic of osteomyelitis and septic arthritis. 2. No other focal bony abnormality is noted. Ankle X-Ray 07/21/17 0000 Signed Impressions: CONCLUSION: Degenerative changes. No acute abnormality. 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 Patient to OR emergently for 5th tracie resection and incision and drainage Consent signed RLE marked Patient has remained NPO Hayley Amos DPM July 21, 2017 19:09
[2017-07-21] MEDS ORDERED: BUPIVACAINE HCL PF 0.25% 30 ML VIAL ONE (19:26)
[2017-07-21] MEDS ORDERED: DO NOT ADM ANY ANTICOAGULANT DRUGS PRN (19:57)
[2017-07-21 20:00] VITALS: BP 100/63; PULSE 92; RESP 17; TEMP 98.2; O2SAT 94
[2017-07-21] MEDS ORDERED: MIDAZOLAM HCL 2 MG/2 ML VIAL ONE (20:05)
[2017-07-21] MEDS ORDERED: MORPHINE SULFATE 4 MG/ML INJ ONE (20:05)
[2017-07-21] MEDS ORDERED: LACTATED RINGER'S 1000 ML INJ 1,000 ML IV ONE (20:15)
[2017-07-21] MEDS ORDERED: Post-op Orders (for Pharmacy) XX ONE (20:15)
--- NOTE | 2017-07-21 20:51 | RADRPT ---
EXAM DATE: 07/21/2017 8:48 PM EDT AGE/SEX: 52 years / Male INDICATIONS: Post-op right foot fifth digit removal. CLINICAL DATA: This is the patient's initial encounter. Patient reports that signs and symptoms have been present for 1 day and indicates a pain score of 0/10. MEDICAL/SURGICAL HISTORY: . Smoker. . 5th digit removal. [place] [facility] [id number] 07/21/2017. . FINDINGS: Postsurgical changes are noted following partial amputation of the right fifth metatarsal and complet e amputation of the right fifth toe. Overlying dressing is noted. Bony structures of foot are otherwi se unremarkable. CONCLUSION: Postoperative changes status post amputation of the right fifth toe and partial amputation of the rig ht fifth metatarsal. Electronically signed by: Julio C Rodrigues MD 07/21/2017 8:50 PM EDT
[2017-07-21] MEDS: DOCUSATE SODIUM 50 MG/SENNA 8.6 MG TAB PO SCH ×2 (21:00→21:46)
[2017-07-21 21:05] VITALS: PULSE 91
[2017-07-21] MEDS: SODIUM CHLORIDE 0.9% FLUSH 10 ML FLUSH IV FLUSH SCH (21:46)
[2017-07-21] MEDS: PIPERACIL-TAZO 3.375 GM PREMIX 50 ML IV SCH (22:01)
[2017-07-21] MEDS: HYDROmorphone HCL PF 0.5 MG/0.5 ML SYRINGE IV PUSH PRN (22:09)
--- NOTE | 2017-07-21 22:33 | HHI.PR ---
Immediate Post Op Note Procedure Date: July 21, 2017 Pre Op Diagnosis: Gas gangrene right foot Post Op Diagnosis: Gas gangrene right foot Surgeon: Hayley Amos Engineer Third Assistant(s): None Procedure: Right foot fifth ray resection Findings: None Complications: None Specimen(s) removed: 1. Right fifth digit for pathology 2. Fifth metatarsal clearing margin for path 3. Fifth metatarsal clearing margin for micro 4. Soft tissue right foot for micro Estimated blood loss: 20 cc Anesthesia: General Drains: None IVF Patient to: PACU Patient Condition: Good Hayley Amos DPM July 21, 2017 22:33
--- NOTE | 2017-07-21 22:54 | MR ---
cc: Hayley Amos DPM, Jessica I DPM DATE: 07/21/2017 SURGEON: Hayley Amos DPM DEPARTMENT HELPER: None. PREOPERATIVE DIAGNOSES: Gas gangrene, right foot. POSTOPERATIVE DIAGNOSIS: Gas gangrene, right foot. PROCEDURE: Right fifth ray resection. ANESTHESIA: General. HEMOSTASIS: None. ESTIMATED BLOOD LOSS: 20 mL MATERIALS: 2-0 Prolene. INJECTABLES: 10 mL of 0.5% Marcaine plain. COMPLICATIONS: None. INDICATIONS FOR PROCEDURE: The patient is a 52-year-old man who presented to the ED with a necrotic fifth digit with malodor noted to right foot. The patient states that his infection occurred overnight and that it has progressively gotten worse. Denies any nausea, vomiting, fevers or chills. He states there has been increasing in malodor. The patient does have a history of left [id number] amputation to the left lower extremity. He understands all risks, alternatives, complications associated with the procedure. He would still like to move forward with the procedure. DESCRIPTION OF PROCEDURE: The patient was brought back to the operating room, placed on the operating room table in supine position. General anesthesia was then induced. Right foot was then prepped and draped in the usual sterile manner. 10 mL of 0.5% Marcaine plain was infiltrated about the right foot. At this time, a racket-shaped incision was made to the lateral foot around the 5th digit. This incision was deepened through skin and subcutaneous tissue with care to retract all vital neurovascular structures. The incision was deepened to bone and periosteum. Periosteal elevator was utilized to remove soft tissue from the fifth metatarsal. A sagittal saw was utilized to transect the fifth metatarsal. Fifth digit and fifth metatarsal were passed off the field. Copious irrigation was performed. All necrotic, fibrotic tissue was removed. There was noted to be purulent drainage as well as grayish soapy drainage. The site was then copiously irrigated once again. Proximal clearing margin of the fifth metatarsal was taken and sent for pathology and micro. Soft tissue was taken post-lavage for micro. 2-0 Prolene was then utilized to reapproximate the skin. The foot was packed with plain packing. Foot was dressed with 4 x 4's, apryl, cast padding and SYD. The patient tolerated the procedure and anesthesia well. He was transferred from the OR to PACU with vital signs stable and neurovascular status intact. SILVIA Cheema , 10:37 PM , 10:53 PM JESUSITA
[2017-07-22] VITALS (10 sets, daily range): BP systolic 107–157; BP diastolic 55–76; PULSE 76–97; RESP 16–21; TEMP 97.5–99.1; O2SAT 93–98
[2017-07-22] MEDS: oxyCODONE/ACETAMINOPHEN 10 MG/325 MG TAB PO PRN ×4 (00:41→20:06)
[2017-07-22] MEDS: SODIUM CHLOR 0.9% 1000 ML INJ 1,000 ML IV SCH ×3 (01:36→23:28)
[2017-07-22] MEDS: HYDROmorphone HCL PF 0.5 MG/0.5 ML SYRINGE IV PUSH PRN ×4 (02:42→22:24)
[2017-07-22] MEDS: VANCOMYCIN INJ 1,500 MG in SODIUM CHLORID 0.9% 500 ML INJ 500 ML IV SCH ×2 (02:42→16:18)
[2017-07-22 05:43] LABS: AUTOMATED NEUTROPHIL # 7.1 TH/MM3 (1.8-7.7); BASOPHIL # 0.1 TH/MM3 (0-0.2); EOSINOPHIL # 0.1 TH/MM3 (0-0.4); EOSINOPHIL % 1.3 % (0.0-4.0); HEMATOCRIT 32.7 % (39.0-51.0); HEMOGLOBIN 11.4 GM/DL (13.0-17.0); LYMPH % 16.6 % (9.0-44.0); LYMPHOCYTE # 1.7 TH/MM3 (1.0-4.8); MEAN CELL VOLUME 88.1 FL (80.0-100.0); MEAN CORPUSCULAR HEMOGLOBIN 30.7 PG (27.0-34.0); MEAN CORPUSCULAR HGB CONC 34.9 % (32.0-36.0); MONO % 10.5 % (0.0-8.0); MONOCYTE # 1.1 TH/MM3 (0-0.9); NEUT % 70.6 % (16.0-70.0); PLATELET COUNT 229 TH/MM3 (150-450); RED BLOOD COUNT 3.71 MIL/MM3 (4.50-5.90); RED CELL DISTRIBUTION WIDTH 12.9 % (11.6-17.2)
[2017-07-22 06:16] LABS: BICARBONATE 26.9 MEQ/L (21.0-32.0); CALCIUM 8.1 MG/DL (8.5-10.1); CREATININE 1.14 MG/DL (0.60-1.30)
[2017-07-22] MEDS: PIPERACIL-TAZO 3.375 GM PREMIX 50 ML IV SCH ×3 (06:38→23:28)
[2017-07-22] MEDS: SODIUM CHLORIDE 0.9% FLUSH 10 ML FLUSH IV FLUSH SCH ×2 (08:54→20:06)
[2017-07-22] MEDS: DOCUSATE SODIUM 50 MG/SENNA 8.6 MG TAB PO SCH ×2 (08:55→20:07)
--- NOTE | 2017-07-22 12:21 | HHI.PR ---
Subjective Remarks Patient says he is feeling well. Reports pain is under control. Denies any chest pain or shortness of breath. Denies nausea vomiting. Denies diarrhea constipation. Objective Vital Signs Date Time Temp Pulse Resp B/P (MAP) Pulse Ox O2 Delivery O2 Flow Rate FiO2 07/22/17 08:53 98.3 87 18 107/59 (75) 93 07/22/17 04:00 98.1 91 16 115/76 (89) 96 07/22/17 03:58 92 07/22/17 00:00 97.5 95 17 120/71 (87) 98 07/22/17 00:00 94 07/21/17 21:05 91 07/21/17 20:45 97.8 83 25 99/54 (69) 98 Nasal Cannula 2 07/21/17 20:30 85 21 102/85 (91) 99 Nasal Cannula 3 07/21/17 20:15 86 24 99/54 (69) 99 Nasal Cannula 3 07/21/17 20:00 98.2 92 17 100/63 (75) 94 07/21/17 20:00 75 14 146/92 (110) 100 Nasal Cannula 3 07/21/17 19:57 81 9 87/49 (62) 98 Simple Mask 10 07/21/17 19:56 98.7 82 12 80/50 (60) 97 Simple Mask 10 07/21/17 16:00 98.0 93 17 113/75 (88) 97 07/21/17 14:39 101 18 110/72 (85) 97 Room Air 07/21/17 13:15 97.5 108 20 121/61 (81) 96 I/O 07/21/17 07/21/17 07/21/17 07/22/17 07/22/17 07/22/17 07:00 15:00 23:00 07:00 15:00 23:00 Intake Total 900 ml 260 ml 1000 ml Output Total 15 ml 300 ml Balance 885 ml -40 ml 1000 ml Intake Oral 260 ml IV Total 300 ml 1000 ml Other 600 ml Output Urine Total 300 ml Estimated Blood Loss 15 ml Result Diagram: 07/22/17 0513 07/22/17 0457 Objective Remarks GENERAL: Patient sitting up in bed. Appears comfortable. SKIN: Warm and dry. HEAD: Normocephalic. EYES: No scleral icterus. No injection or drainage. NECK: Supple, trachea midline. No JVD. CARDIOVASCULAR: Regular rate and rhythm without murmurs, gallops, or rubs. RESPIRATORY: Breath sounds equal bilaterally. No accessory muscle use. GASTROINTESTINAL: Abdomen soft, non-tender, nondistended. MUSCULOSKELETAL: No cyanosis, or edema. Right lower extremity dressed. Dressing intact. BACK: Nontender without obvious deformity. No CVA tenderness. A/P Assessment and Plan Patient is a 52-year-old male with past medical history of PAD, multiple left lower extremity surgery and amputation who came into the hospital for evaluation of right necrotic fifth toe and right foot cellulitis. //Right foot cellulitis, right fifth toe necrosis possible osteomyelitis //Postoperative right foot debridement performed on 07/21. Meets SIRS, sepsis, severe sepsis criteria -White count 11.3, with bandemia, hyponatremia Na 127, elevated creatinine 1.62, EGFR 45 -Blood glucose 330, lactic acid 2.1 -Elevated C-reactive protein 14 -Foot x-ray showed destructive bone changes with associated bone marrow edema and abnormal enhancement involving the distal fifth metatarsal, fifth met tarsophalangeal joint and fifth toe characteristic of osteomyelitis and septic arthritis. 2. No other focal bony abnormalities noted -Ankle x-ray showed degenerative changes. No acute abnormality -Foot MRI showed radiographic findings consistent with cellulitis -Podiatry, Dr. Amos consulted for further evaluation and recommendation -Start IV antibiotics vancomycin, Zosyn -Blood cultures, labs follow-up -IV fluid for hydration -Pain medication Percocet, IV Dilaudid for breakthrough pain = Postsurgical management as per surgical service. Cultures pending. Continue antibiotics. Appreciate podiatry assistance. //Acute kidney injury, possible chronic kidney disease unknown stage -Creatinine 1.62 -Unable to find out baseline creatinine -Avoid nephrotoxic -IVF For hydration -Follow renal indicis = 07/22. Creatinine improved 1.14. //Hyperglycemia -Denies history of diabetes, admits to family history of diabetes -Check hemoglobin A1c -Diabetic diet = We will place on diabetic diet. //PAD, PVD Diabetic ulcer -Wound care by nursing //Tobacco use -Nicotine patch. Counselled //DVT prop Heparin Discharge Planning Pending cultures Pending podiatry clearance. Nate Suarez MD July 22, 2017 12:21
[2017-07-22 13:21] LABS: HEMOGLOBIN A1C 10.7 % (4.3-6.0)
--- NOTE | 2017-07-22 15:36 | HHI.PR ---
Subjective Remarks Patient seen postop day 1. States he feels like his IV is not working. He would like to have a wheelchair bedside so he can get to the restroom. Objective Vital Signs Date Time Temp Pulse Resp B/P (MAP) Pulse Ox O2 Delivery O2 Flow Rate FiO2 07/22/17 12:00 99.1 97 21 157/72 (100) 96 07/22/17 08:53 98.3 87 18 107/59 (75) 93 07/22/17 04:00 98.1 91 16 115/76 (89) 96 07/22/17 03:58 92 07/22/17 00:00 97.5 95 17 120/71 (87) 98 07/22/17 00:00 94 07/21/17 21:05 91 07/21/17 20:45 97.8 83 25 99/54 (69) 98 Nasal Cannula 2 07/21/17 20:30 85 21 102/85 (91) 99 Nasal Cannula 3 07/21/17 20:15 86 24 99/54 (69) 99 Nasal Cannula 3 07/21/17 20:00 98.2 92 17 100/63 (75) 94 07/21/17 20:00 75 14 146/92 (110) 100 Nasal Cannula 3 07/21/17 19:57 81 9 87/49 (62) 98 Simple Mask 10 07/21/17 19:56 98.7 82 12 80/50 (60) 97 Simple Mask 10 07/21/17 16:00 98.0 93 17 113/75 (88) 97 I/O 07/21/17 07/21/17 07/21/17 07/22/17 07/22/17 07/22/17 07:00 15:00 23:00 07:00 15:00 23:00 Intake Total 900 ml 260 ml 1000 ml Output Total 15 ml 300 ml Balance 885 ml -40 ml 1000 ml Intake Oral 260 ml IV Total 300 ml 1000 ml Other 600 ml Output Urine Total 300 ml Estimated Blood Loss 15 ml Result Diagram: 07/22/17 0513 07/22/17 0457 Imaging Last Impressions Foot X-Ray 07/21/17 0000 Signed Impressions: CONCLUSION: Postoperative changes status post amputation of the right fifth toe and partial amputation of the right fifth metatarsal. Foot MRI 07/21/17 0000 Signed Impressions: CONCLUSION: 1. Destructive bone changes with associated bone marrow edema and abnormal enh ancement involving the distal fifth metatarsal, fifth metatarsophalangeal joint and fifth toe characteristic of osteomyelitis and septic arthritis. 2. No other focal bony abnormality is noted. Ankle X-Ray 07/21/17 0000 Signed Impressions: CONCLUSION: Degenerative changes. No acute abnormality. Procedures Status post fifth ray resection right lower extremity Other Results Microbiology Date/Time Source Procedure Growth Status 07/21/17 13:40 Blood Peripheral Aerobic Blood Culture - Preliminary NO GROWTH IN 1 DAY Resulted 07/21/17 13:40 Blood Peripheral Anaerobic Blood Culture - Preliminary NO GROWTH IN 1 DAY Resulted 07/21/17 23:44 Wound Foot Acid Fast Stain Pending Received 07/21/17 23:44 Wound Foot Mycobacterial Culture Pending Received Objective Remarks Right fifth digit amputation noted with sutures intact and skin well coapted to proximal aspect of the amputation site. Granular base noted to distal aspect of amputation site with packing present. Upon removal of packing and compression no purulent drainage noted. Decreased erythema and edema noted to right lower extremity. Active passive dorsiflexion of digits 1 through 5 noted right lower extremity. Medications and IVs Current Medications Medications (Trade) Dose Ordered Sig/Payton Route Start Time Stop Time Status Last Admin Sodium Chloride 1,000 ml @ 100 mls/hr Q10H IV 07/21/17 15:36 07/22/17 08:57 (NS Flush) 2 ml UNSCH PRN IV FLUSH 07/21/17 15:45 (NS Flush) 2 ml BID IV FLUSH 07/21/17 21:00 07/22/17 08:54 (Reglan Inj) 5 mg Q6H PRN IV PUSH 07/21/17 15:45 (Narcan Inj) 0.4 mg UNSCH PRN IV PUSH 07/21/17 15:45 (Yahaira-Colace) 1 tab BID PO 07/21/17 21:00 (Milk Of Magnesia Liq) 30 ml Q12H PRN PO 07/21/17 15:45 (Senokot) 17.2 mg Q12H PRN PO 07/21/17 15:45 (Dulcolax Supp) 10 mg DAILY PRN RECTAL 07/21/17 15:45 (Lactulose Liq) 30 ml DAILY PRN PO 07/21/17 15:45 Vancomycin HCl 1500 mg/Sodium Chloride 515 ml @ 257.5 mls/ hr Q12H IV 07/22/17 03:00 07/22/17 02:42 Piperacillin Sod/ Tazobactam Sod 50 ml @ 100 mls/hr Q8H IV 07/21/17 23:00 07/22/17 06:38 (Morphine Inj) 1 mg Q4H PRN IV PUSH 07/21/17 15:45 (Percocet 7.5-325 Mg) 1 tab Q4H PRN PO 07/21/17 18:00 (Percocet 10-325 Mg) 1 tab Q4H PRN PO 07/21/17 18:00 07/22/17 10:39 (Dilaudid Pf Inj) 0.5 mg Q4H PRN IV PUSH 07/21/17 18:00 07/22/17 12:45 ([facility] Nursing Information) ALL NURSING DEPARTME... 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 Patient examined and evaluated Packing pulled and dressing change to right lower extremity Wound care to apply wound VAC every 48 hours, consult placed Will evaluate wound after wound VAC placement for potential secondary debridement/secondary closure however wound is looking granular and healthy at this moment Upon follow-up patient would like to follow-up with the wound care center at [place] states he is unable to make it to my office in [facility] Patient may be discharged with wound VAC, will wait to evaluate wound Continue with IV antibiotic Pathology from the OR/micro from the OR pending Hayley Amos DPM July 22, 2017 15:36
[2017-07-22] MEDS: MORPHINE SULFATE 2 MG/ML SYRINGE IV PUSH PRN (16:13)
[2017-07-23] VITALS (7 sets, daily range): BP systolic 103–151; BP diastolic 57–72; PULSE 74–80; RESP 16–20; TEMP 98–98.7; O2SAT 96–99
[2017-07-23] MEDS: oxyCODONE/ACETAMINOPHEN 10 MG/325 MG TAB PO PRN ×4 (01:08→22:18)
[2017-07-23] MEDS: VANCOMYCIN INJ 1,500 MG in SODIUM CHLORID 0.9% 500 ML INJ 500 ML IV SCH ×2 (03:32→16:36)
[2017-07-23] MEDS: HYDROmorphone HCL PF 0.5 MG/0.5 ML SYRINGE IV PUSH PRN ×4 (03:34→16:37)
[2017-07-23 05:23] LABS: AUTOMATED NEUTROPHIL # 5.1 TH/MM3 (1.8-7.7); BASOPHIL # 0.1 TH/MM3 (0-0.2); BASOPHIL % 1.2 % (0.0-2.0); EOSINOPHIL # 0.2 TH/MM3 (0-0.4); EOSINOPHIL % 2.5 % (0.0-4.0); HEMATOCRIT 31.4 % (39.0-51.0); HEMOGLOBIN 10.8 GM/DL (13.0-17.0); LYMPH % 24.4 % (9.0-44.0); MEAN CELL VOLUME 88.7 FL (80.0-100.0); MEAN CORPUSCULAR HEMOGLOBIN 30.4 PG (27.0-34.0); MEAN CORPUSCULAR HGB CONC 34.3 % (32.0-36.0); MEAN PLATELET VOLUME 7.3 FL (7.0-11.0); MONO % 9.8 % (0.0-8.0); MONOCYTE # 0.8 TH/MM3 (0-0.9); NEUT % 62.1 % (16.0-70.0); PLATELET COUNT 211 TH/MM3 (150-450); RED BLOOD COUNT 3.54 MIL/MM3 (4.50-5.90); RED CELL DISTRIBUTION WIDTH 12.9 % (11.6-17.2); WHITE BLOOD COUNT 8.1 TH/MM3 (4.0-11.0)
[2017-07-23 05:52] LABS: ALBUMIN 2.3 GM/DL (3.4-5.0); BICARBONATE 28.1 MEQ/L (21.0-32.0); CALCIUM 8.6 MG/DL (8.5-10.1); CREATININE 0.85 MG/DL (0.60-1.30); MAGNESIUM 1.9 MG/DL (1.5-2.5); PHOSPHORUS 3.4 MG/DL (2.5-4.9)
[2017-07-23] MEDS: PIPERACIL-TAZO 3.375 GM PREMIX 50 ML IV SCH ×3 (06:22→22:19)
[2017-07-23] MEDS: SODIUM CHLOR 0.9% 1000 ML INJ 1,000 ML IV SCH ×2 (07:36→17:36)
[2017-07-23] MEDS: SODIUM CHLORIDE 0.9% FLUSH 10 ML FLUSH IV FLUSH SCH ×2 (08:59→21:00)
[2017-07-23] MEDS: DOCUSATE SODIUM 50 MG/SENNA 8.6 MG TAB PO SCH ×2 (09:00→21:00)
--- NOTE | 2017-07-23 13:27 | RADRPT ---
EXAM DATE: 07/23/2017 9:36 AM EDT AGE/SEX: 52 years / Male INDICATIONS: Foot pain CLINICAL DATA: This is the patient's initial encounter. Patient reports that signs and symptoms have been present for 3 days and indicates a pain score of 10/10. MEDICAL/SURGICAL HISTORY: . Peripheral artery disease, MRSA, Right necrotic 5th toe, Right foot cellulitis . Multiple left lower extremity surgeries, Left below knee amputation COMPARISON: No prior [facility] exams available for comparison. TECHNIQUE: Four-cuff ankle and brachial pressures were obtained. Pulse cuff waveform tracings of the ankles were recorded, and ankle-brachial indices were calculated. PRESSURES (mmHg): Brachial (arm) : RIGHT: 103, LEFT: IV SITE Ankle : RIGHT: 111, LEFT: BKA EMELYN : RIGHT: 1.08, LEFT: BKA TBI : RIGHT: 0.73, LEFT: BKA PULSED CUFF WAVEFORMS: Demonstrate normal amplitude bilaterally. CONCLUSION: 1. No significant stenosis/occlusive disease Electronically signed by: Aniket Austin MD 07/23/2017 1:26 PM EDT
--- NOTE | 2017-07-23 13:50 | HHI.PR ---
Subjective Remarks Patient again says he is feeling all right. Denies any chest pain or shortness of breath. Denies nausea or vomiting. Reports pain is under control. He asked me to look at his back MRSA abscess which was treated and [place] 1 month ago, poor healing. He denies any pain currently. Objective Vital Signs Date Time Temp Pulse Resp B/P (MAP) Pulse Ox O2 Delivery O2 Flow Rate FiO2 07/23/17 12:45 20 07/23/17 12:04 98.1 80 18 103/66 (78) 96 07/23/17 08:04 98.0 76 18 121/72 (88) 99 07/23/17 03:27 98.4 78 16 117/64 (81) 97 07/23/17 00:18 77 07/22/17 22:28 98.4 76 18 109/55 (73) 94 07/22/17 20:13 89 07/22/17 16:00 97 07/22/17 15:43 99.1 83 18 128/66 (86) 97 I/O 07/22/17 07/22/17 07/22/17 07/23/17 07/23/17 07/23/17 07:00 15:00 23:00 07:00 15:00 23:00 Intake Total 260 ml 1720 ml Output Total 300 ml 800 ml 800 ml 900 ml Balance -40 ml 920 ml -800 ml -900 ml Intake Oral 260 ml 720 ml IV Total 1000 ml Output Urine Total 300 ml 800 ml 800 ml 900 ml Result Diagram: 07/23/17 0400 07/23/17 0400 Procedures Status post fifth ray resection right lower extremity Objective Remarks GENERAL: Patient sitting up in bed. Appears comfortable. SKIN: Warm and dry. HEAD: Normocephalic. EYES: No scleral icterus. No injection or drainage. NECK: Supple, trachea midline. No JVD. CARDIOVASCULAR: Regular rate and rhythm without murmurs, gallops, or rubs. RESPIRATORY: Breath sounds equal bilaterally. No accessory muscle use. GASTROINTESTINAL: Abdomen soft, non-tender, nondistended. MUSCULOSKELETAL: No cyanosis, or edema. Right lower extremity dressed. Dressing intact. BACK: Right lower thoracic region with 5 x 5 area of faint erythema and induration with central 1 cm incision draining what appears to be serous fluid. A/P Assessment and Plan Patient is a 52-year-old male with past medical history of PAD, multiple left lower extremity surgery and amputation who came into the hospital for evaluation of right necrotic fifth toe and right foot cellulitis. //Right foot cellulitis, right fifth toe necrosis possible osteomyelitis //Postoperative right foot debridement performed on 07/21. Meets SIRS, sepsis, severe sepsis criteria -White count 11.3, with bandemia, hyponatremia Na 127, elevated creatinine 1.62, EGFR 45 -Blood glucose 330, lactic acid 2.1 -Elevated C-reactive protein 14 -Foot x-ray showed destructive bone changes with associated bone marrow edema and abnormal enhancement involving the distal fifth metatarsal, fifth met tarsophalangeal joint and fifth toe characteristic of osteomyelitis and septic arthritis. 2. No other focal bony abnormalities noted -Ankle x-ray showed degenerative changes. No acute abnormality -Foot MRI showed radiographic findings consistent with cellulitis -Podiatry, Dr. Amos consulted for further evaluation and recommendation -Start IV antibiotics vancomycin, Zosyn -Blood cultures, labs follow-up -IV fluid for hydration -Pain medication Percocet, IV Dilaudid for breakthrough pain = Postsurgical management as per surgical service. Cultures pending. Continue antibiotics. Appreciate podiatry assistance. = Patient cleared for discharge by podiatry to go home on IV antibiotics with with wound VAC. Awaiting wound VAC. Will discussed with case management. Will consult infectious disease for home antibiotics //Right posterior back abscess, apparently treated in [place] 1 month ago. Reportedly was MRSA. Patient continues on vancomycin and Zosyn. ID will be consulted. //Acute kidney injury, possible chronic kidney disease unknown stage -Creatinine 1.62 -Unable to find out baseline creatinine -Avoid nephrotoxic -IVF For hydration -Follow renal indicis = Resolved. //Diabetes mellitus. Uncontrolled. A1c is 10.7 -Denies history of diabetes, admits to family history of diabetes -Check hemoglobin A1c -Diabetic diet = A1c 10.7. 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 //PAD, PVD //Diabetic ulcer -Wound care by nursing //Tobacco use -Nicotine patch. Counselled //DVT prop Heparin Discharge Planning Podiatry is cleared for home with IV antibiotics, wound VAC We will need wound VAC ID consulted for IV antibiotic Nate Suarez MD July 23, 2017 13:50
[2017-07-23] MEDS ORDERED: DEXTROSE 50% IN WATER 50 ML VIAL(D50) IV PUSH PRN (14:00)
[2017-07-23] MEDS ORDERED: GLUCAGON 1 MG/ML VIAL OTHER PRN (14:00)
[2017-07-23] MEDS: INSULIN ASPART SUPPLEMENTAL SCALE SQ SCH ×2 (17:00→22:22)
[2017-07-24] VITALS: BP 118/68; PULSE 73; RESP 20; TEMP 98.2; O2SAT 98
[2017-07-24] MEDS: HYDROmorphone HCL PF 0.5 MG/0.5 ML SYRINGE IV PUSH PRN ×5 (00:39→22:55)
[2017-07-24 04:00] VITALS: BP 133/76; PULSE 65; RESP 20; TEMP 98.2; O2SAT 96
[2017-07-24] MEDS: oxyCODONE/ACETAMINOPHEN 10 MG/325 MG TAB PO PRN ×4 (04:24→21:15)
[2017-07-24] MEDS: VANCOMYCIN INJ 1,500 MG in SODIUM CHLORID 0.9% 500 ML INJ 500 ML IV SCH ×2 (04:24→15:18)
[2017-07-24] MEDS: SODIUM CHLOR 0.9% 1000 ML INJ 1,000 ML IV SCH ×2 (04:25→23:36)
[2017-07-24] MEDS: PIPERACIL-TAZO 3.375 GM PREMIX 50 ML IV SCH (06:29)
[2017-07-24 08:00] VITALS: BP 122/78; PULSE 74; RESP 18; TEMP 98.2; O2SAT 97
[2017-07-24] MEDS: DOCUSATE SODIUM 50 MG/SENNA 8.6 MG TAB PO SCH ×2 (08:59→21:00)
[2017-07-24] MEDS: SODIUM CHLORIDE 0.9% FLUSH 10 ML FLUSH IV FLUSH SCH ×2 (09:00→21:16)
[2017-07-24] MEDS: INSULIN ASPART SUPPLEMENTAL SCALE SQ SCH ×4 (09:01→21:17)
--- NOTE | 2017-07-24 09:59 | HHI.PR ---
Subjective Remarks Patient reports constant pain in right foot. Denies any chest pain shortness of breath. Reports continued pain of right back, says he does not want any intervention to his right back abscess without anesthesia Objective Vital Signs Date Time Temp Pulse Resp B/P (MAP) Pulse Ox O2 Delivery O2 Flow Rate FiO2 07/24/17 08:00 98.2 74 18 122/78 (93) 97 07/24/17 04:00 98.2 65 20 133/76 (95) 96 07/24/17 00:00 98.2 73 20 118/68 (85) 98 07/23/17 20:00 98.7 77 20 151/57 (88) 97 07/23/17 18:52 20 07/23/17 17:07 20 07/23/17 16:04 98.1 80 18 134/66 (88) 97 07/23/17 12:04 98.1 80 18 103/66 (78) 96 I/O 07/23/17 07/23/17 07/23/17 07/24/17 07/24/17 07/24/17 07:00 15:00 23:00 07:00 15:00 23:00 Intake Total 2990 ml 720 ml Output Total 900 ml 1701 ml 500 ml Balance -900 ml 1289 ml 220 ml Intake Oral 1590 ml 720 ml IV Total 1400 ml Output Urine Total 900 ml 1700 ml 500 ml Stool Total 1 ml # Voids 2 # Bowel Movements 0 0 Result Diagram: 07/23/17 0400 07/23/17 0400 Procedures Status post fifth ray resection right lower extremity Objective Remarks GENERAL: Patient sitting up in bed. Appears comfortable. SKIN: Warm and dry. HEAD: Normocephalic. EYES: No scleral icterus. No injection or drainage. NECK: Supple, trachea midline. No JVD. CARDIOVASCULAR: Regular rate and rhythm without murmurs, gallops, or rubs. RESPIRATORY: Breath sounds equal bilaterally. No accessory muscle use. GASTROINTESTINAL: Abdomen soft, non-tender, nondistended. MUSCULOSKELETAL: No cyanosis, or edema. Right lower extremity dressed. Dressing intact. BACK: Right lower thoracic region with 6 x 6 area of faint erythema (same as yesterday) and induration with central 1 cm incision draining what appears to be serous fluid. A/P Assessment and Plan Patient is a 52-year-old male with past medical history of PAD, multiple left lower extremity surgery and amputation who came into the hospital for evaluation of right necrotic fifth toe and right foot cellulitis. //Right foot cellulitis, right fifth toe necrosis possible osteomyelitis //Postoperative right foot debridement performed on 07/21. Meets SIRS, sepsis, severe sepsis criteria -White count 11.3, with bandemia, hyponatremia Na 127, elevated creatinine 1.62, EGFR 45 -Blood glucose 330, lactic acid 2.1 -Elevated C-reactive protein 14 -Foot x-ray showed destructive bone changes with associated bone marrow edema and abnormal enhancement involving the distal fifth metatarsal, fifth met tarsophalangeal joint and fifth toe characteristic of osteomyelitis and septic arthritis. 2. No other focal bony abnormalities noted -Ankle x-ray showed degenerative changes. No acute abnormality -Foot MRI showed radiographic findings consistent with cellulitis -Podiatry, Dr. Amos consulted for further evaluation and recommendation -Start IV antibiotics vancomycin, Zosyn -Blood cultures, labs follow-up -IV fluid for hydration -Pain medication Percocet, IV Dilaudid for breakthrough pain = Postsurgical management as per surgical service. Cultures pending. Continue antibiotics. Appreciate podiatry assistance. = Patient cleared for discharge by podiatry to go home on IV antibiotics with with wound VAC. Awaiting wound VAC. Will discussed with case management. Will consult infectious disease for home antibiotics //Right posterior back abscess, apparently treated in [place] 1 month ago. Reportedly was MRSA. Patient continues on vancomycin and Zosyn. ID will be consulted. = Consult general surgery for incision and drainage of right back abscess. Will need to be cultured. Patient continues on antibiotics for foot //Acute kidney injury, possible chronic kidney disease unknown stage -Creatinine 1.62 -Unable to find out baseline creatinine -Avoid nephrotoxic -IVF For hydration -Follow renal indicis = Resolved. //Diabetes mellitus. Uncontrolled. A1c is 10.7 -Denies history of diabetes, admits to family history of diabetes -Check hemoglobin A1c -Diabetic diet = A1c 10.7. 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 Glucose improved today. //PAD, PVD //Diabetic ulcer -Wound care by nursing //Tobacco use -Nicotine patch. Counselled //DVT prop Heparin Discharge Planning Podiatry is cleared for home with IV antibiotics, wound VAC We will need wound VAC Also pending right back abscess incision and drainage. ID consulted for IV antibiotic Nate Suarez MD July 24, 2017 09:58
--- NOTE | 2017-07-24 10:50 | PD.ID.CON ---
History of Present Illness Service Infectious disease Consult Requested By Hospitalist service Primary Care Physician No Primary Care Physician Diagnoses: History of Present Illness Patient seen and examined on behalf of Dr. Hendricks This is a 52yo male with past medical history of PAD s/p left lower leg amputation 09/2016 who was admitted for right necrotic fifth toe and right foot cellulitis. Patient reported the infection developed overnight and he woke up on Sunday morning with the fifth digit being black. Imaging of the right foot showed destructive bone changes with associated bone marrow edema and abnormal enhancement involving the distal fifth metatarsal, fifth met tarsophalangeal joint and fifth toe characteristic of osteomyelitis and septic arthritis. Patients initial presentation was c/w sepsis with lactic acid 2.1, tachypnea, tachycardia, hypotension and source of right foot osteomyelitis. Patient has been treated with IV Vancomycin and Zosyn. Patient was seen in consultation by Dr. Amos for gas gangrene and underwent a right foot fifth ray resection. Dr. Amos has ordered a wound vac to be placed and continuation of IV antibiotics. Additionally, patient has been receiving treatment at [facility] for MRSA abscess in the right upper back for the past month. Patient states he was treated with some sulfa medication daily and Rocephin injections every couple of days with frequent wound care and packing. Patient reports the back had been healing well for the past two weeks without any drainage or pain until this past Sunday when he began to have discomfort and new drainage. Blood cultures have shown no growth. Superficial wound culture grew heavy growth of mixed enteric GNRs. Repeat wound culture with rare growth gram positive ant. Pathology is pending. Infectious disease has been consulted for evaluation and management of continued IV antibiotics and back abscess. Primary team has consulted general surgery for possible I&D. (Trinity Dejesus) Review of Systems Except as stated in HPI: all other systems reviewed are Neg (Trinity Dejesus) Past Family Social History Allergies: Coded Allergies: Tetanus Vaccines and Toxoid (Verified Allergy, Intermediate, ARM SWELLING , VOMITING, 07/21/17) Past Medical History MRSA abscess right upper back PAD s/p left BKA DM Past Surgical History Left BKA Reported Medications No Active Prescriptions or Reported Medications Active Ordered Medications IV Vancomycin IV Zosyn Current Medications Medications (Trade) Dose Ordered Sig/Payton Route Start Time Stop Time Status Last Admin Sodium Chloride 1,000 ml @ 100 mls/hr Q10H IV 07/21/17 15:36 07/24/17 04:25 (NS Flush) 2 ml UNSCH PRN IV FLUSH 07/21/17 15:45 (NS Flush) 2 ml BID IV FLUSH 07/21/17 21:00 07/22/17 08:54 (Reglan Inj) 5 mg Q6H PRN IV PUSH 07/21/17 15:45 (Narcan Inj) 0.4 mg UNSCH PRN IV PUSH 07/21/17 15:45 (Yahaira-Colace) 1 tab BID PO 07/21/17 21:00 (Milk Of Magnesia Liq) 30 ml Q12H PRN PO 07/21/17 15:45 (Senokot) 17.2 mg Q12H PRN PO 07/21/17 15:45 (Dulcolax Supp) 10 mg DAILY PRN RECTAL 07/21/17 15:45 (Lactulose Liq) 30 ml DAILY PRN PO 07/21/17 15:45 Vancomycin HCl 1500 mg/Sodium Chloride 515 ml @ 257.5 mls/ hr Q12H IV 07/22/17 03:00 07/24/17 04:24 Piperacillin Sod/ Tazobactam Sod 50 ml @ 100 mls/hr Q8H IV 07/21/17 23:00 07/24/17 06:29 (Morphine Inj) 1 mg Q4H PRN IV PUSH 07/21/17 15:45 07/22/17 16:13 (Percocet 7.5-325 Mg) 1 tab Q4H PRN PO 07/21/17 18:00 (Percocet 10-325 Mg) 1 tab Q4H PRN PO 07/21/17 18:00 07/24/17 09:00 (Dilaudid Pf Inj) 0.5 mg Q4H PRN IV PUSH 07/21/17 18:00 07/24/17 06:29 (NovoLOG SUPPLEMENTAL SCALE) 1 ACHS SLIDING SCALE SQ 07/23/17 17:00 07/24/17 09:01 (D50w (Vial) Inj) 25 ml UNSCH PRN IV PUSH 07/23/17 14:00 (Glucagon Inj) 1 mg UNSCH PRN OTHER 07/23/17 14:00 Family History HTN DM Social History +tobacco use 1/2 ppd. +EtOH use. +Marijuana use, denies any hx of IVDU (Trinity Dejesus) Physical Exam Vital Signs Vital Signs Date Time Temp Pulse Resp B/P (MAP) Pulse Ox O2 Delivery O2 Flow Rate FiO2 07/24/17 08:00 98.2 74 18 122/78 (93) 97 07/24/17 04:00 98.2 65 20 133/76 (95) 96 07/24/17 00:00 98.2 73 20 118/68 (85) 98 07/23/17 20:00 98.7 77 20 151/57 (88) 97 07/23/17 18:52 20 07/23/17 17:07 20 07/23/17 16:04 98.1 80 18 134/66 (88) 97 07/23/17 12:04 98.1 80 18 103/66 (78) 96 Physical Exam GENERAL: This is a well-nourished, well-developed patient, in no apparent distress. Awake and alert. SKIN: Warm and dry. +6x6cm indurated area over the right upper back with associated erythema and edema with small opening with serous drainage. HEAD: Atraumatic. Normocephalic. No temporal or scalp tenderness. EYES: Pupils equal round and reactive. Extraocular motions intact. No scleral icterus. No injection or drainage. ENT: Nose without bleeding or purulent drainage. Throat without erythema, tonsillar hypertrophy or exudate. Uvula midline. Airway patent. NECK: Trachea midline. No JVD or lymphadenopathy. Supple, nontender, no meningeal signs. CARDIOVASCULAR: Regular rate and rhythm without murmurs, gallops, or rubs. RESPIRATORY: Clear to auscultation. Breath sounds equal bilaterally. No wheezes , rales, or rhonchi. GASTROINTESTINAL: Abdomen soft, non-tender, nondistended. No hepato-splenomegaly , or palpable masses. No guarding. MUSCULOSKELETAL: Extremities without clubbing or cyanosis. +s/p Left BKA, well healed. Right foot in postop dressing, did not remove. Able to wiggle toes on right foot. +trace to 1+ edema BLE with venous stasis changes noted. NEUROLOGICAL: Awake and alert. Cranial nerves II through XII intact. Motor and sensory grossly within normal limits. Five out of 5 muscle strength in all muscle groups. Normal speech. PSYCHIATRIC: Calm and cooperative PIV with no signs of infection Laboratory Date/Time Source Procedure Growth Status 07/21/17 13:40 Blood Peripheral Aerobic Blood Culture - Preliminary NO GROWTH IN 2 DAYS Resulted 07/21/17 13:40 Blood Peripheral Anaerobic Blood Culture - Preliminary NO GROWTH IN 2 DAYS Resulted 07/21/17 23:44 Wound Foot Acid Fast Stain Pending Received 07/21/17 23:44 Wound Foot Mycobacterial Culture Pending Received (Trinity Dejesus) Result Diagram: 07/23/17 0400 07/23/17 0400 Imaging Last Impressions Foot X-Ray 07/21/17 0000 Signed Impressions: CONCLUSION: Postoperative changes status post amputation of the right fifth toe and partial amputation of the right fifth metatarsal. Foot MRI 07/21/17 0000 Signed Impressions: CONCLUSION: 1. Destructive bone changes with associated bone marrow edema and abnormal enh ancement involving the distal fifth metatarsal, fifth metatarsophalangeal joint and fifth toe characteristic of osteomyelitis and septic arthritis. 2. No other focal bony abnormality is noted. Extremity Arterial Study 07/21/17 0000 Signed Impressions: CONCLUSION: 1. No significant stenosis/occlusive disease Ankle X-Ray 07/21/17 0000 Signed Impressions: CONCLUSION: Degenerative changes. No acute abnormality. (Trinity Dejesus) Assessment and Plan Assessment and Plan Severe sepsis Right foot cellulitis Right 5th digit osteomyelitis -s/p right foot ray resection with plans for wound vac application Right upper back MRSA abscess PAD s/p left BKA DM, new diagnosis RECS: Continue with IV antibiotics Zosyn and Vancomycin Follow up on pathology results (Trinity Dejesus) Assessment and Plan The exam, history, and the medical decision-making described in the above note were completed with the assistance of the mid-level provider. I reviewed and agree with the findings presented. I attest that I had a [id number] encounter with the patient on the same day, and personally performed and documented my assessment and findings in the medical record. Reports Back abscesses MRSA treated in ED. No admission required. No bacteremia workup. s/b DrDean Surgery no plans for any further surgery. s/p ray amputation digit, path pending. Intraop cultures with Strep viridans ID pending. Reviewed back wound with regulatory administrator still has induration and erythema not much discharge from I&D sites. A/P: MRSA back abscess s/p I&D in [facility]. Strep viridans osteomyelitis Obesity DC Zosyn IV Start Ceftriaxone IV Continue Vanco IV pending Strep susceptibilities. Follow cultures Follow clinically. dw patient (Leelee Hendricks MD) Trinity Dejesus July 24, 2017 10:50 Leelee Hendricks MD July 24, 2017 18:56
--- NOTE | 2017-07-24 11:58 | PD.CONS ---
HPI Service General surgery Consult Requested By Dr. Suarez Reason for Consult Back abscess Primary Care Physician No Primary Care Physician History of Present Illness 52-year-old male admitted for right foot cellulitis and toe necrosis status post right fifth ray resection with recent back abscess. He states that he had incision and drainage of an abscess of the mid back in early June out into the planned and had some wound care treatment after that. He was told there is some drainage during this hospitalization and was concerned that it was worsening. He has been on IV antibiotics including vancomycin and Zosyn. He has new diagnosis of diabetes mellitus. Denies pain around the area of the back abscess. Review of Systems Constitutional: DENIES: Fever, Chills Eyes: DENIES: Eye inflammation, Eye pain Respiratory: DENIES: Cough, Shortness of breath Cardiovascular: DENIES: Chest pain, Palpitations Gastrointestinal: DENIES: Abdominal pain, Nausea, Vomiting Musculoskeletal: DENIES: Back pain Integumentary: DENIES: Pruritus Past Family Social History Past Medical History Newly diagnosed diabetes mellitus Peripheral arterial disease status post left BKA Past Surgical History Left BKA Right fifth ray resection Reported Medications Reported Meds & Active Scripts Active No Active Prescriptions or Reported Medications Allergies: Coded Allergies: Tetanus Vaccines and Toxoid (Verified Allergy, Intermediate, ARM SWELLING , VOMITING, 07/21/17) Active Ordered Medications Current Medications Medications (Trade) Dose Ordered Sig/Payton Route Start Time Stop Time Status Last Admin Sodium Chloride 1,000 ml @ 100 mls/hr Q10H IV 07/21/17 15:36 07/24/17 04:25 (NS Flush) 2 ml UNSCH PRN IV FLUSH 07/21/17 15:45 (NS Flush) 2 ml BID IV FLUSH 07/21/17 21:00 07/22/17 08:54 (Reglan Inj) 5 mg Q6H PRN IV PUSH 07/21/17 15:45 (Narcan Inj) 0.4 mg UNSCH PRN IV PUSH 07/21/17 15:45 (Yahaira-Colace) 1 tab BID PO 07/21/17 21:00 (Milk Of Magnesia Liq) 30 ml Q12H PRN PO 07/21/17 15:45 (Senokot) 17.2 mg Q12H PRN PO 07/21/17 15:45 (Dulcolax Supp) 10 mg DAILY PRN RECTAL 07/21/17 15:45 (Lactulose Liq) 30 ml DAILY PRN PO 07/21/17 15:45 Vancomycin HCl 1500 mg/Sodium Chloride 515 ml @ 257.5 mls/ hr Q12H IV 07/22/17 03:00 07/24/17 04:24 Piperacillin Sod/ Tazobactam Sod 50 ml @ 100 mls/hr Q8H IV 07/21/17 23:00 07/24/17 06:29 (Morphine Inj) 1 mg Q4H PRN IV PUSH 07/21/17 15:45 07/22/17 16:13 (Percocet 7.5-325 Mg) 1 tab Q4H PRN PO 07/21/17 18:00 (Percocet 10-325 Mg) 1 tab Q4H PRN PO 07/21/17 18:00 07/24/17 09:00 (Dilaudid Pf Inj) 0.5 mg Q4H PRN IV PUSH 07/21/17 18:00 07/24/17 10:28 (NovoLOG SUPPLEMENTAL SCALE) 1 ACHS SLIDING SCALE SQ 07/23/17 17:00 07/24/17 09:01 (D50w (Vial) Inj) 25 ml UNSCH PRN IV PUSH 07/23/17 14:00 (Glucagon Inj) 1 mg UNSCH PRN OTHER 07/23/17 14:00 Family History Noncontributory Social History Smokes half pack of cigarettes daily. Smokes marijuana. Physical Exam Vital Signs Vital Signs Date Time Temp Pulse Resp B/P (MAP) Pulse Ox O2 Delivery O2 Flow Rate FiO2 07/24/17 08:00 98.2 74 18 122/78 (93) 97 07/24/17 04:00 98.2 65 20 133/76 (95) 96 07/24/17 00:00 98.2 73 20 118/68 (85) 98 07/23/17 20:00 98.7 77 20 151/57 (88) 97 07/23/17 18:52 20 07/23/17 17:07 20 07/23/17 16:04 98.1 80 18 134/66 (88) 97 07/23/17 12:04 98.1 80 18 103/66 (78) 96 Physical Exam GENERAL: Awake and alert. No acute distress. Cooperative. HEAD: Normocephalic. Atraumatic. EYES: Pupils equal round and reactive to light bilaterally. No scleral icterus. CHEST: Nonlabored breathing. No respiratory distress. EXTREMITIES: Venous stasis changes of the right lower extremity with Iker bandage wrap around the foot. Status post left BKA. SKIN: Skin of the back shows 2 cm x 5 mm granulating tissue with small amount of clear drainage with mild surrounding erythema and induration. No fluctuance. No purulence. Laboratory Date/Time Source Procedure Growth Status 07/21/17 13:40 Blood Peripheral Aerobic Blood Culture - Preliminary NO GROWTH IN 3 DAYS Resulted 07/21/17 13:40 Blood Peripheral Anaerobic Blood Culture - Preliminary NO GROWTH IN 3 DAYS Resulted 07/21/17 23:44 Wound Foot Acid Fast Stain Pending Received 07/21/17 23:44 Wound Foot Mycobacterial Culture Pending Received Result Diagram: 07/23/17 0400 07/23/17 0400 Assessment and Plan Assessment and Plan 52-year-old male with newly diagnosed diabetes mellitus status post right lower extremity fifth ray amputation with back abscess. There is no fluctuance or purulent drainage and from what he is reporting this does not seem to have been worsening. There would not be any benefit for incision and drainage at this time. He will be continued on antibiotics for the lower extremity. Fabrice Muller MD July 24, 2017 11:58
[2017-07-24 12:00] VITALS: BP 121/61; PULSE 72; RESP 18; TEMP 97.5; O2SAT 98
[2017-07-24] MEDS ORDERED: HYDROmorphone HCL PF 0.5 MG/0.5 ML SYRINGE IV PUSH ONE (13:30)
[2017-07-24] MEDS ORDERED: Vancomycin Consult Pharmacy 1 EA OTHER SCH (15:15)
[2017-07-24 16:00] VITALS: BP 129/71; PULSE 69; RESP 18; TEMP 97.7; O2SAT 98
[2017-07-24] MEDS: cefTRIAXone INJ 2,000 MG in SODIUM CHLORIDE 0.9% INJ 100 ML IV SCH (16:00)
--- NOTE | 2017-07-24 16:24 | PD.WCN.NOT ---
Wound Consult Description: Wound consult ordered by for wound vac placement. Communicated with: , Additional Information: Patient noted to have 2 post I&D incisions to medial back Right medial back incision noted to have induration and erythema to periwound. will write orders for care. Neg Pressure Wound Therapy Wound Location Wound Location: Right fifth ray Wound Description Length: 3.9cm Width: 2.0cm Depth: 0.7cm Tunnelin-1 O'clock ~3.0cm Wound bed appearance: 75% beefy red granular tissue 15% pink moist non granular tissue 10% fascia Periwound appearance: Other (suture dry and intact) Settings Suction: 125 mmHg, Continuous Intensity: Low Other Information: Bridged, Windowpaned, Mushroomed Foam type: Black Number of pieces: 1 Additonal Information Patient was seen today by auto service writer for wound vac placement to right 5th Ray.Patient was medicated for pain prior to writers arrival.Dressing removed from right lower extremity with out difficulty.Wound cleansed with normal saline pat dry .Skin prep applied to periwound and bridging area.Drape applied to bridging area and stoma pasted applied to wound edges for protection and seal.Single piece of black sponge gently packed into wound tunnel and wound base bridging to top of foot.Suction track pad applied to sponge and suction started @ 125mmHg low continuous suction with no leaks noted.Iker wrap applied for security.Patient tolerated wound care well.no questions or commits upon writers departure. Tricia Ramirez [facility] July 24, 2017 16:24
[2017-07-24 20:00] VITALS: BP 118/73; PULSE 80; RESP 17; TEMP 98; O2SAT 98
[2017-07-25] VITALS: BP 131/68; PULSE 70; RESP 17; TEMP 98.3; O2SAT 95
[2017-07-25] MEDS: oxyCODONE/ACETAMINOPHEN 10 MG/325 MG TAB PO PRN ×3 (02:15→20:35)
[2017-07-25] MEDS ORDERED: PHARMACY ORDERED LAB ONE (02:45)
[2017-07-25] MEDS: VANCOMYCIN INJ 2,000 MG in SODIUM CHLORID 0.9% 500 ML INJ 500 ML IV SCH ×2 (02:57→15:12)
[2017-07-25] MEDS: HYDROmorphone HCL PF 0.5 MG/0.5 ML SYRINGE IV PUSH PRN ×4 (02:59→14:53)
[2017-07-25 04:00] VITALS: BP 140/68; PULSE 66; RESP 17; TEMP 97; O2SAT 97
[2017-07-25] MEDS: SODIUM CHLOR 0.9% 1000 ML INJ 1,000 ML IV SCH (05:29)
[2017-07-25 08:00] VITALS: BP 125/70; PULSE 76; RESP 18; TEMP 98.2; O2SAT 97
[2017-07-25] MEDS: INSULIN ASPART SUPPLEMENTAL SCALE SQ SCH ×4 (08:00→22:38)
[2017-07-25] MEDS: SODIUM CHLORIDE 0.9% FLUSH 10 ML FLUSH IV FLUSH SCH ×2 (09:00→22:35)
[2017-07-25] MEDS: DOCUSATE SODIUM 50 MG/SENNA 8.6 MG TAB PO SCH ×2 (09:00→21:00)
--- NOTE | 2017-07-25 09:21 | HHI.FF ---
Face to Face Verification Diagnosis: (1) Diabetes (2) Right foot infection (3) Sepsis Physical Therapy Order: Evaluate and Treat Home Health Nursing Order: Medical education Diabetic education Wound care and dressing changes Nursing assessment with vital signs Instructions: Patient will need wound VAC management as per podiatry instructions. Patient also need home health nurse for IV antibiotic administration as per infectious disease. Home Health Aide Order: To Assist In: Bathing and personal care Senior Product Development Engineer Order: To Provide: Long range planning, Community services I have seen patient Bruno Owen on 07/25/17. My clinical findings support the need for the requested home health care services because: Limited ability to care for self I certify that my clinical findings support that this patient is homebound because: Unsafe to leave home unassisted Nate Suarez MD July 25, 2017 09:21
[2017-07-25 12:00] VITALS: BP 139/84; PULSE 75; RESP 18; TEMP 98.4; O2SAT 98
--- NOTE | 2017-07-25 12:41 | HHI.IDPN ---
Subjective Subjective Remarks Patient seen and examined on behalf of Dr. Hendricks This is a 52yo male with past medical history of PAD s/p left lower leg amputation 09/2016 who was admitted for right necrotic fifth toe and right foot cellulitis. Patient reported the infection developed overnight and he woke up on Sunday morning with the fifth digit being black. Imaging of the right foot showed destructive bone changes with associated bone marrow edema and abnormal enhancement involving the distal fifth metatarsal, fifth met tarsophalangeal joint and fifth toe characteristic of osteomyelitis and septic arthritis. Patients initial presentation was c/w sepsis with lactic acid 2.1, tachypnea, tachycardia, hypotension and source of right foot osteomyelitis. Patient has been treated with IV Vancomycin and Zosyn. Patient was seen in consultation by Dr. Amos for gas gangrene and underwent a right foot fifth ray resection. Dr. Amos has ordered a wound vac to be placed and continuation of IV antibiotics. Additionally, patient has been receiving treatment at [facility] for MRSA abscess in the right upper back for the past month. Patient states he was treated with some sulfa medication daily and Rocephin injections every couple of days with frequent wound care and packing. Patient reports the back had been healing well for the past two weeks without any drainage or pain until this past Sunday when he began to have discomfort and new drainage. Blood cultures have shown no growth. Superficial wound culture grew heavy growth of mixed enteric GNRs. Repeat wound culture with rare growth gram positive ant. Pathology is pending. Infectious disease has been consulted for evaluation and management of continued IV antibiotics and back abscess. Primary team has consulted general surgery for possible I&D. Notes reviewed Dw Dr. Suarez patient c/o not being able to afford his medications at home c/o right foot pain he is frustrated he has not been able to speak with Dr. Amos no fever no chills no rash no diarrhea afebrile WBC WNL 07/23 Wound cx + viridans strep Path pending BCX no growth x 4 days Antibiotics IV Vanco IV Ceftriaxone Current Medications Medications (Trade) Dose Ordered Sig/Payton Route Start Time Stop Time Status Last Admin (NS Flush) 2 ml UNSCH PRN IV FLUSH 07/21/17 15:45 (NS Flush) 2 ml BID IV FLUSH 07/21/17 21:00 07/25/17 09:00 (Reglan Inj) 5 mg Q6H PRN IV PUSH 07/21/17 15:45 (Narcan Inj) 0.4 mg UNSCH PRN IV PUSH 07/21/17 15:45 (Yahaira-Colace) 1 tab BID PO 07/21/17 21:00 (Milk Of Magnesia Liq) 30 ml Q12H PRN PO 07/21/17 15:45 (Senokot) 17.2 mg Q12H PRN PO 07/21/17 15:45 (Dulcolax Supp) 10 mg DAILY PRN RECTAL 07/21/17 15:45 (Lactulose Liq) 30 ml DAILY PRN PO 07/21/17 15:45 (Morphine Inj) 1 mg Q4H PRN IV PUSH 07/21/17 15:45 07/22/17 16:13 (Percocet 7.5-325 Mg) 1 tab Q4H PRN PO 07/21/17 18:00 (Percocet 10-325 Mg) 1 tab Q4H PRN PO 07/21/17 18:00 07/25/17 05:34 (Dilaudid Pf Inj) 0.5 mg Q4H PRN IV PUSH 07/21/17 18:00 07/25/17 16:00 07/25/17 10:30 (NovoLOG SUPPLEMENTAL SCALE) 1 ACHS SLIDING SCALE SQ 07/23/17 17:00 07/24/17 21:17 (D50w (Vial) Inj) 25 ml UNSCH PRN IV PUSH 07/23/17 14:00 (Glucagon Inj) 1 mg UNSCH PRN OTHER 07/23/17 14:00 Pharmacy Profile Note 0 ml @ 0 mls/hr UNSCH OTHER 07/24/17 15:15 Ceftriaxone Sodium 2000 mg/ Sodium Chloride 100 ml @ 200 mls/hr Q24H IV 07/24/17 16:00 07/24/17 16:00 Vancomycin HCl 2000 mg/Sodium Chloride 520 ml @ 250 mls/hr Q12H IV 07/25/17 03:00 07/25/17 02:57 ([facility] Ordered Lab Info) SPECIFIC LAB TO BE RODRIGO... ONCE ONCE .XX 07/26/17 14:45 07/26/17 14:46 (OxyCONTIN CR) 20 mg Q12H PO 07/25/17 11:00 Lines PIV with no e/o infection Past Medical History MRSA abscess right upper back PAD s/p left BKA DM, newly dx'd this admission (Trinity Dejesus) Allergies: Coded Allergies: Tetanus Vaccines and Toxoid (Verified Allergy, Intermediate, ARM SWELLING , VOMITING, 07/21/17) Objective . Vital Signs Date Time Temp Pulse Resp B/P (MAP) Pulse Ox O2 Delivery O2 Flow Rate FiO2 07/25/17 04:00 97.0 66 17 140/68 (92) 97 07/25/17 00:00 98.3 70 17 131/68 (89) 95 07/24/17 20:00 98.0 80 17 118/73 (88) 98 07/24/17 16:00 97.7 69 18 129/71 (90) 98 Imaging Last Impressions Foot X-Ray 07/21/17 0000 Signed Impressions: CONCLUSION: Postoperative changes status post amputation of the right fifth toe and partial amputation of the right fifth metatarsal. Foot MRI 07/21/17 0000 Signed Impressions: CONCLUSION: 1. Destructive bone changes with associated bone marrow edema and abnormal enh ancement involving the distal fifth metatarsal, fifth metatarsophalangeal joint and fifth toe characteristic of osteomyelitis and septic arthritis. 2. No other focal bony abnormality is noted. Extremity Arterial Study 07/21/17 0000 Signed Impressions: CONCLUSION: 1. No significant stenosis/occlusive disease Ankle X-Ray 07/21/17 0000 Signed Impressions: CONCLUSION: Degenerative changes. No acute abnormality. Physical Exam GENERAL: This is a well-nourished, well-developed patient, in no apparent distress. Awake and alert. SKIN: Warm and dry. + indurated area over the right upper back with associated erythema and edema with small opening appears to be improving, less induration and edema, no active drainage noted. HEAD: Atraumatic. Normocephalic. No temporal or scalp tenderness. EYES: Pupils equal round and reactive. Extraocular motions intact. No scleral icterus. No injection or drainage. ENT: Nose without bleeding or purulent drainage. Throat without erythema, tonsillar hypertrophy or exudate. Uvula midline. Airway patent. NECK: Trachea midline. No JVD or lymphadenopathy. Supple, nontender, no meningeal signs. CARDIOVASCULAR: Regular rate and rhythm without murmurs, gallops, or rubs. RESPIRATORY: Clear to auscultation. Breath sounds equal bilaterally. No wheezes , rales, or rhonchi. GASTROINTESTINAL: Abdomen soft, non-tender, nondistended. No hepato-splenomegaly , or palpable masses. No guarding. MUSCULOSKELETAL: Extremities without clubbing or cyanosis. +s/p Left BKA, well healed. Right foot in postop dressing, wound vac in place, dressing C/D/I. Able to wiggle toes on right foot. +trace to 1+ edema BLE with venous stasis changes noted. NEUROLOGICAL: Awake and alert. Cranial nerves II through XII intact. Motor and sensory grossly within normal limits. Five out of 5 muscle strength in all muscle groups. Normal speech. PSYCHIATRIC: Calm and cooperative PIV with no signs of infection (Trinity Dejesus) Assessment & Plan Remarks Severe sepsis at presentation Right foot cellulitis Right 5th digit strep viridans osteomyelitis -s/p right foot ray resection with plans for wound vac application Right upper back MRSA abscess s/p I&D in [facility], improving -evaluated by Dr. Muller, no surgical intervention at this time PAD s/p left BKA DM, new diagnosis RECS: Continue with IV Ceftriaxone and Vancomycin (pending strep susceptibilities) Follow up on pathology results Follow clinically Dw patient Dw Dr. Suarez (Trinity Dejesus) Remarks The exam, history, and the medical decision-making described in the above note were completed with the assistance of the mid-level provider. I reviewed and agree with the findings presented. I attest that I had a [id number] encounter with the patient on the same day, and personally performed and documented my assessment and findings in the medical record. Path reviewed: 5th metatarsal cleaning margin with no osteomyelitis. Await input and follow up by or podiatry group to decide oral vs IV antibiotics and length. Continue Ceftriaxone IV Continue Vanco IV pending susceptibility of Strep to decide antibiotic choice. Follow cultures follow clinically. (Leelee Hendricks MD) Trinity Dejesus July 25, 2017 12:41 Leelee Hendricks MD July 25, 2017 17:44
[2017-07-25] MEDS: oxyCODONE HCL 20 MG CONTROLLED RELEASE TAB PO SCH ×2 (13:16→22:35)
[2017-07-25 16:00] VITALS: BP 148/80; PULSE 90; RESP 16; TEMP 98.2; O2SAT 97
[2017-07-25] MEDS: cefTRIAXone INJ 2,000 MG in SODIUM CHLORIDE 0.9% INJ 100 ML IV SCH (17:36)
[2017-07-25] MEDS: MORPHINE SULFATE 2 MG/ML SYRINGE IV PUSH PRN (18:56)
[2017-07-25 20:09] VITALS: BP 165/95; PULSE 88; RESP 16; TEMP 98.8; O2SAT 97
[2017-07-26] VITALS: BP 142/88; PULSE 72; RESP 20; TEMP 98.3; O2SAT 98
[2017-07-26] MEDS: MORPHINE SULFATE 2 MG/ML SYRINGE IV PUSH PRN ×5 (00:20→22:01)
[2017-07-26] MEDS: VANCOMYCIN INJ 2,000 MG in SODIUM CHLORID 0.9% 500 ML INJ 500 ML IV SCH ×2 (03:00→15:23)
[2017-07-26] MEDS: oxyCODONE/ACETAMINOPHEN 10 MG/325 MG TAB PO PRN ×4 (03:06→20:15)
[2017-07-26 04:00] VITALS: BP 150/95; PULSE 71; RESP 20; TEMP 97.8; O2SAT 97
[2017-07-26 07:38] LABS: CREATININE 0.68 MG/DL (0.60-1.30)
[2017-07-26 08:00] VITALS: BP 154/87; PULSE 74; RESP 18; TEMP 98.4; O2SAT 98
[2017-07-26] MEDS: INSULIN ASPART SUPPLEMENTAL SCALE SQ SCH ×4 (08:00→20:15)
[2017-07-26] MEDS: DOCUSATE SODIUM 50 MG/SENNA 8.6 MG TAB PO SCH ×2 (09:00→20:15)
[2017-07-26] MEDS: SODIUM CHLORIDE 0.9% FLUSH 10 ML FLUSH IV FLUSH SCH ×2 (09:12→20:14)
--- NOTE | 2017-07-26 09:37 | HHI.IDPN ---
Subjective Subjective Remarks Patient seen and examined on behalf of Dr. Hendricks This is a 52yo male with past medical history of PAD s/p left lower leg amputation 09/2016 who was admitted for right necrotic fifth toe and right foot cellulitis. Patient reported the infection developed overnight and he woke up on Sunday morning with the fifth digit being black. Imaging of the right foot showed destructive bone changes with associated bone marrow edema and abnormal enhancement involving the distal fifth metatarsal, fifth met tarsophalangeal joint and fifth toe characteristic of osteomyelitis and septic arthritis. Patients initial presentation was c/w sepsis with lactic acid 2.1, tachypnea, tachycardia, hypotension and source of right foot osteomyelitis. Patient has been treated with IV Vancomycin and Zosyn. Patient was seen in consultation by Dr. Amos for gas gangrene and underwent a right foot fifth ray resection. Dr. Amos has ordered a wound vac to be placed and continuation of IV antibiotics. Additionally, patient has been receiving treatment at [facility] for MRSA abscess in the right upper back for the past month. Patient states he was treated with some sulfa medication daily and Rocephin injections every couple of days with frequent wound care and packing. Patient reports the back had been healing well for the past two weeks without any drainage or pain until this past Sunday when he began to have discomfort and new drainage. Blood cultures have shown no growth. Superficial wound culture grew heavy growth of mixed enteric GNRs. Repeat wound culture with rare growth gram positive ant. Pathology is pending. Infectious disease has been consulted for evaluation and management of continued IV antibiotics and back abscess. Primary team has consulted general surgery for possible I&D. Notes reviewed Dw nursing staff patient requesting to have his wound vac changed states his pain is out of control - reports he has alot of feeling in his right foot he reports recurrent fever, chills and sweats throughout the day, worsening since his admission back pain is better no rash no diarrhea afebrile - no recorded fever since admission WBC WNL 07/23 Wound cx + viridans strep Path 5th metatarsal cleaning margin with no osteomyelitis. BCX no growth x 4 days Antibiotics IV Vanco IV Ceftriaxone Current Medications Medications (Trade) Dose Ordered Sig/Payton Route Start Time Stop Time Status Last Admin (NS Flush) 2 ml UNSCH PRN IV FLUSH 07/21/17 15:45 (NS Flush) 2 ml BID IV FLUSH 07/21/17 21:00 07/26/17 09:12 (Reglan Inj) 5 mg Q6H PRN IV PUSH 07/21/17 15:45 (Narcan Inj) 0.4 mg UNSCH PRN IV PUSH 07/21/17 15:45 (Yahaira-Colace) 1 tab BID PO 07/21/17 21:00 (Milk Of Magnesia Liq) 30 ml Q12H PRN PO 07/21/17 15:45 (Senokot) 17.2 mg Q12H PRN PO 07/21/17 15:45 (Dulcolax Supp) 10 mg DAILY PRN RECTAL 07/21/17 15:45 (Lactulose Liq) 30 ml DAILY PRN PO 07/21/17 15:45 (Morphine Inj) 1 mg Q4H PRN IV PUSH 07/21/17 15:45 07/26/17 05:03 (Percocet 7.5-325 Mg) 1 tab Q4H PRN PO 07/21/17 18:00 (Percocet 10-325 Mg) 1 tab Q4H PRN PO 07/21/17 18:00 07/26/17 08:57 (NovoLOG SUPPLEMENTAL SCALE) 1 ACHS SLIDING SCALE SQ 07/23/17 17:00 07/25/17 22:38 (D50w (Vial) Inj) 25 ml UNSCH PRN IV PUSH 07/23/17 14:00 (Glucagon Inj) 1 mg UNSCH PRN OTHER 07/23/17 14:00 Pharmacy Profile Note 0 ml @ 0 mls/hr UNSCH OTHER 07/24/17 15:15 Ceftriaxone Sodium 2000 mg/ Sodium Chloride 100 ml @ 200 mls/hr Q24H IV 07/24/17 16:00 07/25/17 17:36 Vancomycin HCl 2000 mg/Sodium Chloride 520 ml @ 250 mls/hr Q12H IV 07/25/17 03:00 07/26/17 03:00 ([facility] Ordered Lab Info) SPECIFIC LAB TO BE ... ONCE ONCE .XX 07/26/17 14:45 07/26/17 14:46 (OxyCONTIN CR) 20 mg Q12H PO 07/25/17 11:00 07/25/17 22:35 Lines PIV with no e/o infection Past Medical History MRSA abscess right upper back PAD s/p left BKA DM, newly dx'd this admission (Trinity Dejesus) Allergies: Coded Allergies: Tetanus Vaccines and Toxoid (Verified Allergy, Intermediate, ARM SWELLING , VOMITING, 07/21/17) Objective . Vital Signs Date Time Temp Pulse Resp B/P (MAP) Pulse Ox O2 Delivery O2 Flow Rate FiO2 07/26/17 04:00 97.8 71 20 150/95 (113) 97 07/26/17 04:00 Room Air 07/26/17 00:00 Room Air 07/26/17 00:00 98.3 72 20 142/88 (106) 98 07/25/17 20:09 98.8 88 16 165/95 (118) 97 07/25/17 20:00 Room Air 07/25/17 16:00 98.2 90 16 148/80 (102) 97 07/25/17 12:00 98.4 75 18 139/84 (102) 98 . Laboratory Tests Test 07/26/17 06:10 Creatinine 0.68 MG/DL Estimat Glomerular Filtration Rate 122 ML/MIN Imaging Last Impressions Foot X-Ray 07/21/17 0000 Signed Impressions: CONCLUSION: Postoperative changes status post amputation of the right fifth toe and partial amputation of the right fifth metatarsal. Foot MRI 07/21/17 Signed Impressions: CONCLUSION: 1. Destructive bone changes with associated bone marrow edema and abnormal enh ancement involving the distal fifth metatarsal, fifth metatarsophalangeal joint and fifth toe characteristic of osteomyelitis and septic arthritis. 2. No other focal bony abnormality is noted. Extremity Arterial Study 07/21/17 Signed Impressions: CONCLUSION: 1. No significant stenosis/occlusive disease Ankle X-Ray 07/21/17 Signed Impressions: CONCLUSION: Degenerative changes. No acute abnormality. Physical Exam GENERAL: This is a well-nourished, well-developed patient, in no apparent distress. Awake and alert. SKIN: Warm and dry. + indurated area over the right upper back with associated erythema and edema with small opening appears to be improving, less induration and edema, no active drainage noted. HEAD: Atraumatic. Normocephalic. No temporal or scalp tenderness. EYES: Pupils equal round and reactive. Extraocular motions intact. No scleral icterus. No injection or drainage. ENT: Nose without bleeding or purulent drainage. Throat without erythema, tonsillar hypertrophy or exudate. Uvula midline. Airway patent. NECK: Trachea midline. No JVD or lymphadenopathy. Supple, nontender, no meningeal signs. CARDIOVASCULAR: Regular rate and rhythm without murmurs, gallops, or rubs. RESPIRATORY: Clear to auscultation. Breath sounds equal bilaterally. No wheezes , rales, or rhonchi. GASTROINTESTINAL: Abdomen soft, non-tender, nondistended. No hepato-splenomegaly , or palpable masses. No guarding. MUSCULOSKELETAL: Extremities without clubbing or cyanosis. +s/p Left BKA, well healed. Right foot in postop dressing, wound vac in place, dressing C/D/I. Able to wiggle toes on right foot. +trace to 1+ edema BLE with venous stasis changes noted. NEUROLOGICAL: Awake and alert. Cranial nerves II through XII intact. Motor and sensory grossly within normal limits. Five out of 5 muscle strength in all muscle groups. Normal speech. PSYCHIATRIC: Calm and cooperative PIV with no signs of infection (Trinity Dejesus) Assessment & Plan Remarks Severe sepsis at presentation Right foot cellulitis Right 5th digit strep viridans osteomyelitis -s/p right foot ray resection with plans for wound vac application Right upper back MRSA abscess s/p I&D in [facility], improving -evaluated by Dr. Muller, no surgical intervention at this time PAD s/p left BKA DM, new diagnosis RECS: Continue with IV Ceftriaxone and Vancomycin (pending strep susceptibilities). [facility]ed [facility] requesting [facility] for strep viridans. Follow up on culture results Follow clinically (Trinity Dejesus) Remarks The exam, history, and the medical decision-making described in the above note were completed with the assistance of the mid-level provider. I reviewed and agree with the findings presented. I attest that I had a [id number] encounter with the patient on the same day, and personally performed and documented my assessment and findings in the medical record. await micro susceptibilities Needs coverage for both strep as well as MRSA in back. Will construct regimen based on further results. Tanner Johnson: recommends IV antibiotics. (Leelee Hendricks MD) Trinity Dejesus July 26, 2017 09:37 Leelee Hendricks MD July 26, 2017 17:29
[2017-07-26] MEDS ORDERED: PREGABALIN 25 MG CAP PO ONE (10:45)
--- NOTE | 2017-07-26 10:49 | HHI.PR ---
Subjective Remarks Date of service 07/25/17 Patient seen and examined on date of service. Patient denies any chest pain or shortness of breath. Denies nausea or vomiting. Discussed with nursing and infectious disease. Awaiting pathology results. Objective Vital Signs Date Time Temp Pulse Resp B/P (MAP) Pulse Ox O2 Delivery O2 Flow Rate FiO2 07/26/17 08:00 98.4 74 18 154/87 (109) 98 07/26/17 04:00 97.8 71 20 150/95 (113) 97 07/26/17 04:00 Room Air 07/26/17 00:00 Room Air 07/26/17 00:00 98.3 72 20 142/88 (106) 98 07/25/17 20:09 98.8 88 16 165/95 (118) 97 07/25/17 20:00 Room Air 07/25/17 16:00 98.2 90 16 148/80 (102) 97 07/25/17 12:00 98.4 75 18 139/84 (102) 98 I/O 07/25/17 07/25/17 07/25/17 07/26/17 07/26/17 07/26/17 07:00 15:00 23:00 07:00 15:00 23:00 Intake Total 700 ml 840 ml 520 ml Output Total 1700 ml 1250 ml Balance -1000 ml -410 ml 520 ml Intake Oral 700 ml 840 ml IV Total 520 ml Output Urine Total 1700 ml 1250 ml # Bowel Movements 1 Result Diagram: 07/23/17 0400 07/26/17 0610 Procedures Status post fifth ray resection right lower extremity Objective Remarks GENERAL: Patient sitting up in bed. Appears comfortable. SKIN: Warm and dry. HEAD: Normocephalic. EYES: No scleral icterus. No injection or drainage. NECK: Supple, trachea midline. No JVD. CARDIOVASCULAR: Regular rate and rhythm without murmurs, gallops, or rubs. RESPIRATORY: Breath sounds equal bilaterally. No accessory muscle use. GASTROINTESTINAL: Abdomen soft, non-tender, nondistended. MUSCULOSKELETAL: No cyanosis, or edema. Right lower extremity dressed. Dressing intact. BACK: Right lower thoracic region with 6 x 6 area of faint erythema (no change and induration with central 1 cm incision draining what appears to be serous fluid. A/P Assessment and Plan Patient is a 52-year-old male with past medical history of PAD, multiple left lower extremity surgery and amputation who came into the hospital for evaluation of right necrotic fifth toe and right foot cellulitis. //Right foot cellulitis, right fifth toe necrosis possible osteomyelitis //Postoperative right foot debridement performed on 07/21. Meets SIRS, sepsis, severe sepsis criteria -White count 11.3, with bandemia, hyponatremia Na 127, elevated creatinine 1.62, EGFR 45 -Blood glucose 330, lactic acid 2.1 -Elevated C-reactive protein 14 -Foot x-ray showed destructive bone changes with associated bone marrow edema and abnormal enhancement involving the distal fifth metatarsal, fifth met tarsophalangeal joint and fifth toe characteristic of osteomyelitis and septic arthritis. 2. No other focal bony abnormalities noted -Ankle x-ray showed degenerative changes. No acute abnormality -Foot MRI showed radiographic findings consistent with cellulitis -Podiatry, Dr. Amos consulted for further evaluation and recommendation -Start IV antibiotics vancomycin, Zosyn -Blood cultures, labs follow-up -IV fluid for hydration -Pain medication Percocet, IV Dilaudid for breakthrough pain = Postsurgical management as per surgical service. Cultures pending. Continue antibiotics. Appreciate podiatry assistance. = 07/25. Wound VAC has been placed. Discussed with infectious disease. Awaiting pathology results. //Right posterior back abscess, apparently treated in [place] 1 month ago. Reportedly was MRSA. Patient continues on vancomycin and Zosyn. ID will be consulted. = Patient seen by general surgery. No need for incision and drainage. We will continue to monitor. //Acute kidney injury, possible chronic kidney disease unknown stage -Creatinine 1.62 -Unable to find out baseline creatinine -Avoid nephrotoxic -IVF For hydration -Follow renal indicis = Resolved. //Diabetes mellitus. Uncontrolled. A1c is 10.7 -Denies history of diabetes, admits to family history of diabetes -Check hemoglobin A1c -Diabetic diet = A1c 10.7. 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 Glucose acceptable //PAD, PVD //Diabetic ulcer -Wound care by nursing //Tobacco use -Nicotine patch. Counselled //DVT prop Heparin Discharge Planning Podiatry is cleared for home with IV antibiotics, wound VAC We will need wound VAC Also pending right back abscess incision and drainage. ID consulted for IV antibiotic Nate Suarez MD July 26, 2017 10:49
--- NOTE | 2017-07-26 10:53 | HHI.PR ---
Subjective Remarks Patient says that right foot pain continues. Says he previously used Lyrica for left leg pain which seemed to help. Cannot use gabapentin. He denies any chest pain or shortness of breath. Denies nausea or vomiting. Objective Vital Signs Date Time Temp Pulse Resp B/P (MAP) Pulse Ox O2 Delivery O2 Flow Rate FiO2 07/26/17 08:00 98.4 74 18 154/87 (109) 98 07/26/17 04:00 97.8 71 20 150/95 (113) 97 07/26/17 04:00 Room Air 07/26/17 00:00 Room Air 07/26/17 00:00 98.3 72 20 142/88 (106) 98 07/25/17 20:09 98.8 88 16 165/95 (118) 97 07/25/17 20:00 Room Air 07/25/17 16:00 98.2 90 16 148/80 (102) 97 07/25/17 12:00 98.4 75 18 139/84 (102) 98 I/O 07/25/17 07/25/17 07/25/17 07/26/17 07/26/17 07/26/17 07:00 15:00 23:00 07:00 15:00 23:00 Intake Total 700 ml 840 ml 520 ml Output Total 1700 ml 1250 ml Balance -1000 ml -410 ml 520 ml Intake Oral 700 ml 840 ml IV Total 520 ml Output Urine Total 1700 ml 1250 ml # Bowel Movements 1 Result Diagram: 07/23/17 0400 07/26/17 0610 Procedures Status post fifth ray resection right lower extremity Objective Remarks GENERAL: Patient sitting up in bed. Appears comfortable. Alert and oriented 3. SKIN: Warm and dry. HEAD: Normocephalic. EYES: No scleral icterus. No injection or drainage. NECK: Supple, trachea midline. No JVD. CARDIOVASCULAR: Regular rate and rhythm without murmurs, gallops, or rubs. RESPIRATORY: Breath sounds equal bilaterally. No accessory muscle use. GASTROINTESTINAL: Abdomen soft, non-tender, nondistended. MUSCULOSKELETAL: No cyanosis, or edema. Right lower extremity dressed. Dressing intact. BACK: Right lower thoracic region with 6 x 6 area of faint erythema (no change) and induration with central 1 cm incision draining what appears to be serous fluid. A/P Assessment and Plan Patient is a 52-year-old male with past medical history of PAD, multiple left lower extremity surgery and amputation who came into the hospital for evaluation of right necrotic fifth toe and right foot cellulitis. //Right foot cellulitis, right fifth toe necrosis possible osteomyelitis //Postoperative right foot debridement performed on 07/21. Meets SIRS, sepsis, severe sepsis criteria -White count 11.3, with bandemia, hyponatremia Na 127, elevated creatinine 1.62, EGFR 45 -Blood glucose 330, lactic acid 2.1 -Elevated C-reactive protein 14 -Foot x-ray showed destructive bone changes with associated bone marrow edema and abnormal enhancement involving the distal fifth metatarsal, fifth met tarsophalangeal joint and fifth toe characteristic of osteomyelitis and septic arthritis. 2. No other focal bony abnormalities noted -Ankle x-ray showed degenerative changes. No acute abnormality -Foot MRI showed radiographic findings consistent with cellulitis -Podiatry, Dr. Amos consulted for further evaluation and recommendation -Start IV antibiotics vancomycin, Zosyn -Blood cultures, labs follow-up -IV fluid for hydration -Pain medication Percocet, IV Dilaudid for breakthrough pain = Postsurgical management as per surgical service. Cultures pending. Continue antibiotics. Appreciate podiatry assistance. = 07/25. Wound VAC has been placed. Discussed with infectious disease. Awaiting pathology results. = 07/26. Continue with wound VAC. Awaiting final anabiotic regimen from infectious disease. Appreciate assistance. //Right posterior back abscess, apparently treated in [place] 1 month ago. Reportedly was MRSA. Patient continues on vancomycin and Zosyn. ID will be consulted. = Patient seen by general surgery. No need for incision and drainage. We will continue to monitor. //Acute kidney injury, possible chronic kidney disease unknown stage -Creatinine 1.62 -Unable to find out baseline creatinine -Avoid nephrotoxic -IVF For hydration -Follow renal indicis = Resolved. //Diabetes mellitus. Uncontrolled. A1c is 10.7 -Denies history of diabetes, admits to family history of diabetes -Check hemoglobin A1c -Diabetic diet = A1c 10.7. 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 Glucose acceptable = 07/26 glucose in the 300s yesterday. Patient appears to have refused afternoon insulin in the chart, however he denies this. We will add Levemir. Teresa monitor. //PAD, PVD //Diabetic ulcer -Wound care by nursing //Tobacco use -Nicotine patch. Counselled //DVT prop Heparin Discharge Planning Podiatry is cleared for home with IV antibiotics, wound VAC We will need wound VAC Also pending right back abscess incision and drainage. ID consulted for IV antibiotic= pending home antibiotic regimen Nate Suarez MD July 26, 2017 10:53
[2017-07-26 12:00] VITALS: BP 153/88; PULSE 63; RESP 18; TEMP 98.4; O2SAT 97
[2017-07-26] MEDS: oxyCODONE HCL 20 MG CONTROLLED RELEASE TAB PO SCH ×2 (12:29→22:00)
[2017-07-26] MEDS: INSULIN DETEMIR 100 UNITS/ML VIAL SQ SCH ×2 (13:28→20:15)
[2017-07-26] MEDS ORDERED: PHARMACY ORDERED LAB ONE (14:45)
[2017-07-26 16:00] VITALS: BP 160/80; PULSE 68; RESP 16; TEMP 98; O2SAT 97
[2017-07-26] MEDS: cefTRIAXone INJ 2,000 MG in SODIUM CHLORIDE 0.9% INJ 100 ML IV SCH (18:07)
[2017-07-26 20:00] VITALS: BP 163/80; PULSE 83; RESP 19; TEMP 97.5; O2SAT 94
[2017-07-26] MEDS: PREGABALIN 25 MG CAP PO SCH (20:14)
[2017-07-27] VITALS: BP 143/82; PULSE 79; RESP 17; TEMP 98; O2SAT 98
[2017-07-27] MEDS: oxyCODONE/ACETAMINOPHEN 10 MG/325 MG TAB PO PRN ×5 (00:04→21:55)
[2017-07-27] MEDS: VANCOMYCIN INJ 2,000 MG in SODIUM CHLORID 0.9% 500 ML INJ 500 ML IV SCH ×2 (02:08→16:59)
[2017-07-27] MEDS: MORPHINE SULFATE 2 MG/ML SYRINGE IV PUSH PRN (02:09)
[2017-07-27 04:00] VITALS: BP 117/68; PULSE 63; RESP 16; TEMP 98.2; O2SAT 96
[2017-07-27] MEDS: MORPHINE SULFATE 4 MG/ML INJ IV PRN ×2 (06:05→09:55)
[2017-07-27] MEDS: INSULIN ASPART SUPPLEMENTAL SCALE SQ SCH ×4 (08:00→21:00)
[2017-07-27 08:35] VITALS: BP 150/76; PULSE 80; RESP 18; TEMP 97.6; O2SAT 98
[2017-07-27] MEDS: DOCUSATE SODIUM 50 MG/SENNA 8.6 MG TAB PO SCH ×2 (09:00→21:00)
--- NOTE | 2017-07-27 09:22 | HHI.IDPN ---
Subjective Subjective Remarks Patient seen and examined on behalf of Dr. Hendricks This is a 52yo male with past medical history of PAD s/p left lower leg amputation 09/2016 who was admitted for right necrotic fifth toe and right foot cellulitis. Patient reported the infection developed overnight and he woke up on Sunday morning with the fifth digit being black. Imaging of the right foot showed destructive bone changes with associated bone marrow edema and abnormal enhancement involving the distal fifth metatarsal, fifth met tarsophalangeal joint and fifth toe characteristic of osteomyelitis and septic arthritis. Patients initial presentation was c/w sepsis with lactic acid 2.1, tachypnea, tachycardia, hypotension and source of right foot osteomyelitis. Patient has been treated with IV Vancomycin and Zosyn. Patient was seen in consultation by Dr. Amos for gas gangrene and underwent a right foot fifth ray resection. Dr. Amos has ordered a wound vac to be placed and continuation of IV antibiotics. Additionally, patient has been receiving treatment at [facility] for MRSA abscess in the right upper back for the past month. Patient states he was treated with some sulfa medication daily and Rocephin injections every couple of days with frequent wound care and packing. Patient reports the back had been healing well for the past two weeks without any drainage or pain until this past Sunday when he began to have discomfort and new drainage. Blood cultures have shown no growth. Superficial wound culture grew heavy growth of mixed enteric GNRs. Repeat wound culture with rare growth gram positive ant. Pathology is pending. Infectious disease has been consulted for evaluation and management of continued IV antibiotics and back abscess. Primary team has consulted general surgery for possible I&D. Notes reviewed is at the bedside c/o poorly controlled pain. States Morphine does nothing for him but give him hallucinations continues to complain of fever and chills. No documented fever on EMR + drainage from back wound no rash no diarrhea afebrile - no recorded fever since admission WBC WNL 07/23 Wound cx + viridans strep Path 5th metatarsal clear margin with no osteomyelitis. BCX no growth x 5 days Antibiotics IV Vanco IV Ceftriaxone Current Medications Medications (Trade) Dose Ordered Sig/Payton Route Start Time Stop Time Status Last Admin (NS Flush) 2 ml UNSCH PRN IV FLUSH 07/21/17 15:45 (NS Flush) 2 ml BID IV FLUSH 07/21/17 21:00 07/26/17 20:14 (Reglan Inj) 5 mg Q6H PRN IV PUSH 07/21/17 15:45 (Narcan Inj) 0.4 mg UNSCH PRN IV PUSH 07/21/17 15:45 (Yahaira-Colace) 1 tab BID PO 07/21/17 21:00 (Milk Of Magnesia Liq) 30 ml Q12H PRN PO 07/21/17 15:45 (Senokot) 17.2 mg Q12H PRN PO 07/21/17 15:45 (Dulcolax Supp) 10 mg DAILY PRN RECTAL 07/21/17 15:45 (Lactulose Liq) 30 ml DAILY PRN PO 07/21/17 15:45 (Percocet 7.5-325 Mg) 1 tab Q4H PRN PO 07/21/17 18:00 (Percocet 10-325 Mg) 1 tab Q4H PRN PO 07/21/17 18:00 07/27/17 04:31 (NovoLOG SUPPLEMENTAL SCALE) 1 ACHS SLIDING SCALE SQ 07/23/17 17:00 07/26/17 13:28 (D50w (Vial) Inj) 25 ml UNSCH PRN IV PUSH 07/23/17 14:00 (Glucagon Inj) 1 mg UNSCH PRN OTHER 07/23/17 14:00 Pharmacy Profile Note 0 ml @ 0 mls/hr UNSCH OTHER 07/24/17 15:15 Ceftriaxone Sodium 2000 mg/ Sodium Chloride 100 ml @ 200 mls/hr Q24H IV 07/24/17 16:00 07/26/17 18:07 Vancomycin HCl 2000 mg/Sodium Chloride 520 ml @ 250 mls/hr Q12H IV 07/25/17 03:00 07/27/17 02:08 (OxyCONTIN CR) 20 mg Q12H PO 07/25/17 11:00 07/26/17 22:00 (Lyrica) 25 mg Q12HR PO 07/26/17 21:00 07/26/17 20:14 (Levemir Inj) 5 units Q12HR SQ 07/26/17 11:00 07/26/17 13:28 ([facility] Ordered Lab Info) SPECIFIC LAB TO BE DRAWN:JOSE JUANO TROUGH DATE TO BE DRMohsen.. ONCE ONCE .XX 07/28/17 14:45 07/28/17 14:46 (Morphine Inj) 1 mg Q4H PRN IV 07/27/17 02:30 07/27/17 06:05 Lines PIV with no e/o infection Past Medical History MRSA abscess right upper back PAD s/p left BKA DM, newly dx'd this admission (Trinity Dejesus) Allergies: Coded Allergies: Tetanus Vaccines and Toxoid (Verified Allergy, Intermediate, ARM SWELLING , VOMITING, 07/21/17) Objective . Vital Signs Date Time Temp Pulse Resp B/P (MAP) Pulse Ox O2 Delivery O2 Flow Rate FiO2 07/27/17 04:00 98.2 63 16 117/68 (84) 96 07/27/17 03:21 Room Air 07/27/17 00:00 Room Air 07/27/17 00:00 98.0 79 17 143/82 (102) 98 07/26/17 20:00 Room Air 07/26/17 20:00 97.5 83 19 163/80 (107) 94 07/26/17 17:26 Room Air 07/26/17 16:00 98.0 68 16 160/80 (106) 97 07/26/17 12:00 98.4 63 18 153/88 (109) 97 07/26/17 12:00 Room Air . Laboratory Tests Test 07/26/17 06:10 Creatinine 0.68 MG/DL Estimat Glomerular Filtration Rate 122 ML/MIN Imaging Last Impressions Foot X-Ray 07/21/17 0000 Signed Impressions: CONCLUSION: Postoperative changes status post amputation of the right fifth toe and partial amputation of the right fifth metatarsal. Foot MRI 07/21/17 0000 Signed Impressions: CONCLUSION: 1. Destructive bone changes with associated bone marrow edema and abnormal enh ancement involving the distal fifth metatarsal, fifth metatarsophalangeal joint and fifth toe characteristic of osteomyelitis and septic arthritis. 2. No other focal bony abnormality is noted. Extremity Arterial Study 07/21/17 0000 Signed Impressions: CONCLUSION: 1. No significant stenosis/occlusive disease Ankle X-Ray 07/21/17 0000 Signed Impressions: CONCLUSION: Degenerative changes. No acute abnormality. Physical Exam GENERAL: This is a well-nourished, well-developed patient, in no apparent distress. Awake and alert. SKIN: Warm and dry. + indurated area over the right upper back with associated erythema and edema with small openings x 2 appears to be improving, no active drainage noted. HEAD: Atraumatic. Normocephalic. No temporal or scalp tenderness. EYES: Pupils equal round and reactive. Extraocular motions intact. No scleral icterus. No injection or drainage. ENT: Nose without bleeding or purulent drainage. Throat without erythema, tonsillar hypertrophy or exudate. Uvula midline. Airway patent. NECK: Trachea midline. No JVD or lymphadenopathy. Supple, nontender, no meningeal signs. CARDIOVASCULAR: Regular rate and rhythm without murmurs, gallops, or rubs. RESPIRATORY: Clear to auscultation. Breath sounds equal bilaterally. No wheezes , rales, or rhonchi. GASTROINTESTINAL: Abdomen soft, non-tender, nondistended. No hepato-splenomegaly , or palpable masses. No guarding. MUSCULOSKELETAL: Extremities without clubbing or cyanosis. +s/p Left BKA, well healed. Right foot wound vac in place. Able to wiggle toes on right foot. + trace to 1+ edema BLE with venous stasis changes noted. NEUROLOGICAL: Awake and alert. Cranial nerves II through XII intact. Motor and sensory grossly within normal limits. Nonfocal. Normal speech. 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 Muller, no surgical intervention at this time PAD s/p left BKA DM, new diagnosis RECS: Continue with IV Ceftriaxone and Vancomycin (pending strep susceptibilities). Dr. Amos recommending continued IV abx treatment Will need coverage for MRSA as well as strep Follow clinically (Trinity Dejesus) Remarks The exam, history, and the medical decision-making described in the above note were completed with the assistance of the mid-level provider. I reviewed and agree with the findings presented. I attest that I had a [id number] encounter with the patient on the same day, and personally performed and documented my assessment and findings in the medical record. Continue Ceftriaxone IV Continue Vanco IV target 10-15. DW : ok to dc home on oral zyvox. No osteo but would like to treat residual disease. Also good vascular supply. Patient will need wound vac. Patient has been difficult to deal with in hospital concern about compliance with personnel as well as with meds and instructions. Would like to avoid PICC line. Also has h/o self reported drug abuse. CM to try to get Zyvox that covers both organism. Will follow up in am. Script for Zyvox in chart. (Leelee Hendricks MD) Trinity Dejesus Jul 27, 2017 09:22 Leelee Hendricks MD Jul 27, 2017 19:03
[2017-07-27] MEDS: oxyCODONE HCL 20 MG CONTROLLED RELEASE TAB PO SCH (09:53)
[2017-07-27] MEDS: SODIUM CHLORIDE 0.9% FLUSH 10 ML FLUSH IV FLUSH SCH ×2 (09:53→21:42)
[2017-07-27] MEDS: INSULIN DETEMIR 100 UNITS/ML VIAL SQ SCH ×2 (09:54→21:00)
[2017-07-27] MEDS: PREGABALIN 25 MG CAP PO SCH ×2 (09:54→21:43)
[2017-07-27] MEDS ORDERED: HYDROmorphone HCL PF 2 MG/ML VIAL IV PUSH ONE (11:30)
[2017-07-27 12:35] VITALS: BP 151/96; PULSE 72; RESP 18; TEMP 97.6; O2SAT 97
[2017-07-27] MEDS ORDERED: GLUCKIT15 (15:08)
[2017-07-27] MEDS ORDERED: LANCETS1 MI1 (15:08)
[2017-07-27] MEDS ORDERED: GLIP1TAB49 PO (15:08)
[2017-07-27] MEDS ORDERED: GLUCTES12 (15:08)
[2017-07-27] MEDS ORDERED: INSU1INJ5 SQ ×2 (15:08→15:15)
[2017-07-27] MEDS ORDERED: INSU-99 (15:12)
[2017-07-27] MEDS ORDERED: PREG25 PO (15:15)
--- NOTE | 2017-07-27 16:08 | HHI.PR ---
Subjective Remarks Nursing reports that the patient once better pain control. However the patient himself says he does not like morphine, his is at the bedside and says it causes him to hallucinate. Patient says he needs prescriptions for Levemir, says he does not have anybody providing medications for him as an outpatient. Objective Vital Signs Date Time Temp Pulse Resp B/P (MAP) Pulse Ox O2 Delivery O2 Flow Rate FiO2 07/27/17 12:35 97.6 72 18 151/96 (114) 97 07/27/17 08:35 97.6 80 18 150/76 (100) 98 07/27/17 08:00 Room Air 07/27/17 04:00 98.2 63 16 117/68 (84) 96 07/27/17 03:21 Room Air 07/27/17 00:00 Room Air 07/27/17 00:00 98.0 79 17 143/82 (102) 98 07/26/17 20:00 Room Air 07/26/17 20:00 97.5 83 19 163/80 (107) 94 07/26/17 17:26 Room Air I/O 07/26/17 07/26/17 07/26/17 07/27/17 07/27/17 07/27/17 06:59 14:59 22:59 06:59 14:59 22:59 Intake Total 520 ml 760 ml Output Total 800 ml Balance 520 ml -40 ml Intake Oral 240 ml IV Total 520 ml 520 ml Output Urine Total 800 ml # Bowel Movements 0 Result Diagram: 07/23/17 0400 07/26/17 0610 Procedures Status post fifth ray resection right lower extremity Objective Remarks Right foot is in postop dressing with wound VAC placed A/P Assessment and Plan Patient is a 52-year-old male with past medical history of PAD, multiple left lower extremity surgery and amputation who came into the hospital for evaluation of right necrotic fifth toe and right foot cellulitis. //Right foot cellulitis, right fifth toe necrosis possible osteomyelitis //Postoperative right foot debridement performed on 07/21 by podiatry. -vancomycin, Zosyn -IV fluid for hydration -Pain medication Percocet, stopping IV morphine = 07/25. Wound VAC has been placed. Discussed with infectious disease. Awaiting pathology results. Continue with wound VAC. Awaiting final antibiotic regimen from infectious disease. Appreciate assistance. //Right posterior back abscess, apparently treated in [place] 1 month ago. Reportedly was MRSA. Patient continues on vancomycin and Zosyn. ID helping co- manage. = Patient seen by general surgery. No need for incision and drainage. We will continue to monitor. //Diabetes mellitus. Uncontrolled. A1c is 10.7 -improving w/ SS and levemir - will start glipizide, will need both levemir and glipizide upon discharge at least //PAD, PVD //Diabetic ulcer -Wound care by nursing //Tobacco use -Nicotine patch. Counselled //DVT prop Heparin Elton Barnard MD Jul 27, 2017 16:08
[2017-07-27] MEDS ORDERED: glipiZIDE 5 MG TAB PO ONE (16:15)
[2017-07-27 16:30] VITALS: BP 135/76; PULSE 65; RESP 18; TEMP 97.2; O2SAT 95
--- NOTE | 2017-07-27 18:27 | PD.WCN.NOT ---
Neg Pressure Wound Therapy Wound Location Wound Location: Right fifth metatarsal head Wound Description Length: 3.9cm Width: 2.6cm Depth: 0.8cm Tunnelin o'clock at 1.2cm Wound bed appearance: 80% red granulation tissue, 15% black tissue, 5% facia Periwound appearance: Other (maceration noted to periwound circumferentially, 3 sutures noted at 6 o'clock ) Settings Suction: 125 mmHg, Continuous Intensity: Low Other Information: Bridged, Windowpaned, Mushroomed Foam type: Black Number of pieces: 1 Additonal Information Patient seen on for wound VAC dressing change, Removed dressing from R fifth metatarsal head to reveal wound including one piece of black granufoam.Wound was cleansed with normal saline and patted dry. Applied Skin barrier film to periwound and R lateral dorsal foot. Eakins seal was applied toto crevices surrounding wound to seal wound VAC dressing. Maxorb II was applied over macerated skin with sutures to protect from VAC drape and to keep sutures dry. Applied one piece of black granufoam to wound bed and secured in place with VAC drape. VAC black granufoam was bridged to R lateral dorsal foot over VAC drape and Sensi trac pad was applied over bridged granufoam with attached mushroom cap of granufoam. All exposed granufoam was covered with VAC drape to seal VAC dressing.Patient had skin breakdown to dorsal aspect of R foot with purple discoloration that is non blanchable noted to R dorsal aspect of R foot where Sensi trac pad had been placed with previous VAC dressing. Purple discoloration measures ~1.5cm x ~2cm with maceration. Discolored area was cleansed with normal saline and patted dry. Skin barrier film was then applied over discoloration and maceration. Wound VAC is suctioning with low leak rate. R foot was wrapped with ion wrap with dry 4x4 gauze placed over discolored macerated area to dorsal R foot, to secure wound VAC dressing. Patient tolerated procedure well. Eneida Lucero [facility] Jul 27, 2017 18:27
[2017-07-27] MEDS ORDERED: ZYVO600T PO (18:55)
[2017-07-27] MEDS: cefTRIAXone INJ 2,000 MG in SODIUM CHLORIDE 0.9% INJ 100 ML IV SCH (19:15)
[2017-07-27 20:00] VITALS: BP 157/89; PULSE 73; RESP 21; TEMP 97.7; O2SAT 99
--- NOTE | 2017-07-27 23:54 | PD.POD ---
Subjective Podiatric Problems Right foot infection, s/p I&D with 5th ray amputation and bone biopsy Dr Amos 07/21/17 Past Med/Surg/Social History Social History Smoking Status: Current Every Day Smoker Objective Vital Signs Vital Signs Date Time Temp Pulse Resp B/P (MAP) Pulse Ox O2 Delivery O2 Flow Rate FiO2 07/27/17 20:00 97.7 73 21 157/89 (111) 99 07/27/17 16:30 97.2 65 18 135/76 (95) 95 07/27/17 12:35 97.6 72 18 151/96 (114) 97 07/27/17 08:35 97.6 80 18 150/76 (100) 98 07/27/17 08:00 Room Air 07/27/17 04:00 98.2 63 16 117/68 (84) 96 07/27/17 03:21 Room Air 07/27/17 00:00 Room Air 07/27/17 00:00 98.0 79 17 143/82 (102) 98 Coded Allergies: Tetanus Vaccines and Toxoid (Verified Allergy, Intermediate, ARM SWELLING , VOMITING, 07/21/17) Other Results Microbiology Date/Time Source Procedure Growth Status 07/21/17 13:40 Blood Peripheral Aerobic Blood Culture - Final NO GROWTH IN 5 DAYS Complete 07/21/17 13:40 Blood Peripheral Anaerobic Blood Culture - Final NO GROWTH IN 5 DAYS Complete 07/21/17 23:44 Wound Foot Acid Fast Stain - Final NO ACID FAST BACILLI SEEN Resulted 07/21/17 23:44 Wound Foot Mycobacterial Culture Pending Resulted Exam-Podiatry Remarks Right lateral foot wound with mild fibrotic tissue and granular appearance to wound base. Reduced erythema to foot. No purulence noted. Assessment & Plan A/P Right foot infection Discussed issues and discussed photos and progression Discussed at length the process of wound care required to salvage foot in its current state. Discussed at length that I can take him back to OR and take more bone and possibly 4th toe to give him a wound that will be closed so no wound vac will be required. Discussed surgery possibly Sunday morning. Will add patient to OR schedule tentatively. Kitty David DPM Jul 27, 2017 23:54
[2017-07-28] VITALS: BP 160/95; PULSE 75; RESP 22; TEMP 97.1; O2SAT 98
[2017-07-28] MEDS: oxyCODONE HCL 20 MG CONTROLLED RELEASE TAB PO SCH ×3 (00:28→22:22)
--- NOTE | 2017-07-28 00:39 | RADRPT ---
EXAM DATE: 07/28/2017 12:34 AM EDT AGE/SEX: 52 years / Male INDICATIONS: Post op pain. CLINICAL DATA: This is the patient's initial encounter. Patient reports that signs and symptoms have been present for 4 - 6 days and indicates a pain score of 10/10. MEDICAL/SURGICAL HISTORY: Diabetes mellitus type II. MRSA. Smoker. . Right foot 5th metatarsal & digit removal. COMPAR[place]: [facility] [place] COMPLETE ([id number]), 07/21/2017. . FINDINGS: The patient is status post amputation of the fifth digit at the mid fifth metatarsal level. The remai rikki bony structures appear intact. There are spurs and hypertrophic change at the Achilles and, to a lesser degree, the plantar aponeurosis attachment sites of the posterior calcaneus. CONCLUSION: Postoperative change from fifth digit amputation at the level of the midportion of the fifth metatars al. Electronically signed by: Marshal Malik MD 07/28/2017 12:38 AM EDT
[2017-07-28 04:00] VITALS: BP 141/84; PULSE 71; RESP 20; TEMP 97.7; O2SAT 97
[2017-07-28] MEDS: VANCOMYCIN INJ 2,000 MG in SODIUM CHLORID 0.9% 500 ML INJ 500 ML IV SCH (04:03)
[2017-07-28] MEDS: oxyCODONE/ACETAMINOPHEN 10 MG/325 MG TAB PO PRN ×2 (04:03→08:27)
[2017-07-28 07:08] LABS: CREATININE 0.95 MG/DL (0.60-1.30)
[2017-07-28 08:00] VITALS: BP 153/94; PULSE 67; RESP 20; TEMP 97.2; O2SAT 99
[2017-07-28] MEDS: DOCUSATE SODIUM 50 MG/SENNA 8.6 MG TAB PO SCH ×2 (08:23→21:00)
[2017-07-28] MEDS: SODIUM CHLORIDE 0.9% FLUSH 10 ML FLUSH IV FLUSH SCH ×2 (08:24→22:21)
[2017-07-28] MEDS: PREGABALIN 25 MG CAP PO SCH ×2 (08:27→21:00)
[2017-07-28] MEDS: glipiZIDE 5 MG TAB PO SCH (08:30)
[2017-07-28] MEDS: INSULIN DETEMIR 100 UNITS/ML VIAL SQ SCH ×2 (10:02→22:21)
[2017-07-28] MEDS: INSULIN ASPART SUPPLEMENTAL SCALE SQ SCH ×3 (10:02→21:00)
[2017-07-28 12:00] VITALS: BP 137/99; PULSE 70; RESP 20; TEMP 97.8; O2SAT 96
--- NOTE | 2017-07-28 12:54 | HHI.PR ---
Subjective Remarks Nursing denies any deterioration since last night. However patient himself would like more pain control now that he is going to stay inpatient until a revisit to the OR planned for tomorrow per podiatry. Objective Vital Signs Date Time Temp Pulse Resp B/P (MAP) Pulse Ox O2 Delivery O2 Flow Rate FiO2 07/28/17 04:00 97.7 71 20 141/84 (103) 97 07/28/17 00:00 97.1 75 22 160/95 (116) 98 07/27/17 20:00 97.7 73 21 157/89 (111) 99 07/27/17 16:30 97.2 65 18 135/76 (95) 95 I/O 07/27/17 07/27/17 07/27/17 07/28/17 07/28/17 07/28/17 07:00 15:00 23:00 07:00 15:00 23:00 Intake Total 760 ml 720 ml 960 ml Output Total 800 ml 600 ml 1200 ml Balance -40 ml 120 ml -240 ml Intake Oral 240 ml 720 ml 960 ml IV Total 520 ml Output Urine Total 800 ml 600 ml 1200 ml # Bowel Movements 0 Result Diagram: 07/28/17 0545 Procedures Status post fifth ray resection right lower extremity Objective Remarks Right foot is in postop dressing with wound VAC placed with toes exposed Overall unchanged physical exam since yesterday A/P Assessment and Plan Patient is a 52-year-old male with past medical history of PAD, multiple left lower extremity surgery and amputation who came into the hospital for evaluation of right necrotic fifth toe and right foot cellulitis. //Right foot cellulitis, right fifth toe necrosis possible osteomyelitis //Postoperative right foot debridement performed on 07/21 by podiatry. -vancomycin, Zosyn -IV fluid for hydration -Pain medication Percocet, will restart IV Dilaudid, patient informed that we will do this only until shortly postop the second operation with plans of discontinuing IV pain medication in the last 12 hours of his hospitalization -revisiting OR for irrigation planned in AM = 07/25. Wound VAC has been placed. Discussed with infectious disease. Awaiting pathology results. Continue with wound VAC. Awaiting final antibiotic regimen from infectious disease. Appreciate assistance. //Right posterior back abscess, apparently treated in [place] 1 month ago. Reportedly was MRSA. Patient continues on vancomycin and Zosyn. ID helping co- manage. = Patient seen by general surgery. No need for incision and drainage. We will continue to monitor. //Diabetes mellitus. Uncontrolled. A1c is 10.7 -improving w/ SS and levemir - will start glipizide, will need both levemir and glipizide upon discharge at least //PAD, PVD //Diabetic ulcer -Wound care by nursing //Tobacco use -Nicotine patch. Counselled //DVT prop Heparin Elton Barnard MD Jul 28, 2017 12:54
[2017-07-28] MEDS ORDERED: HEPARIN SODIUM - SQ 10,000 UNITS/ML VIAL SQ ONE ×2 (13:00→22:30)
[2017-07-28] MEDS ORDERED: PHARMACY ORDERED LAB ONE (14:45)
[2017-07-28 16:00] VITALS: BP 154/90; PULSE 74; RESP 20; TEMP 97.8; O2SAT 98
[2017-07-28] MEDS: cefTRIAXone INJ 2,000 MG in SODIUM CHLORIDE 0.9% INJ 100 ML IV SCH (16:00)
[2017-07-28] MEDS: oxyCODONE/ACETAMINOPHEN 7.5 MG/325 MG TAB PO PRN (16:02)
[2017-07-28] MEDS: VANCOMYCIN INJ 1,500 MG in SODIUM CHLORID 0.9% 500 ML INJ 500 ML IV SCH (18:00)
[2017-07-28 20:00] VITALS: BP 161/93; PULSE 74; RESP 20; TEMP 97.9; O2SAT 98
--- NOTE | 2017-07-28 21:53 | PD.POD ---
Subjective Podiatric Problems Right foot infection, s/p I&D with 5th ray amputation and bone biopsy Dr Amos 07/21/17 Past Med/Surg/Social History Social History Smoking Status: Current Every Day Smoker Objective Vital Signs Vital Signs Date Time Temp Pulse Resp B/P (MAP) Pulse Ox O2 Delivery O2 Flow Rate FiO2 07/28/17 19:00 Room Air 07/28/17 16:00 97.8 74 20 154/90 (111) 98 07/28/17 12:00 97.8 70 20 137/99 (112) 96 07/28/17 08:00 97.2 67 20 153/94 (113) 99 07/28/17 04:00 97.7 71 20 141/84 (103) 97 07/28/17 00:00 97.1 75 22 160/95 (116) 98 Coded Allergies: Tetanus Vaccines and Toxoid (Verified Allergy, Intermediate, ARM SWELLING , VOMITING, 07/21/17) Assessment & Plan A/P Right foot infection Discussed issues and discussed that his laundry list of requirements for outpatient care are not realistic. Discussed again at length the process of wound care required to salvage foot in its current state. Discussed at length that I the best I can do for him is to have him leave the hospital with no open wound and sutures in with a closed wound, which would likely require partial 4th ray amputation. Discussed surgery tomorrow. NPO after midnight Kitty David DPM Jul 28, 2017 21:53
[2017-07-28] MEDS: HYDROmorphone HCL PF 0.5 MG/0.5 ML SYRINGE IV PUSH PRN (22:23)
[2017-07-29] VITALS: BP 179/87; PULSE 85; RESP 20; TEMP 97.7; O2SAT 96
[2017-07-29] MEDS: oxyCODONE/ACETAMINOPHEN 7.5 MG/325 MG TAB PO PRN ×6 (00:40→23:25)
[2017-07-29] MEDS: SODIUM CHLORIDE 0.9% FLUSH 10 ML FLUSH IV FLUSH PRN ×2 (02:45→06:47)
[2017-07-29] MEDS: HYDROmorphone HCL PF 0.5 MG/0.5 ML SYRINGE IV PUSH PRN ×5 (02:45→21:01)
[2017-07-29] MEDS ORDERED: LACTATED RINGER'S 1000 ML IV PRN (03:00)
[2017-07-29] MEDS ORDERED: CHLORHEXIDINE GLUCONATE 2 % 1 PACK (2 CLOTHS) TOPICAL PRN (03:00)
[2017-07-29] MEDS ORDERED: POVIDONE IODINE 5% (ANTISEPSIS KIT) 4 APPLICATIONS EACH NARE PRN (03:00)
[2017-07-29] MEDS ORDERED: SODIUM CHLORID 0.9% 500 ML IV PRN (03:00)
[2017-07-29 04:00] VITALS: BP 156/74; PULSE 73; RESP 20; TEMP 97.8; O2SAT 99
[2017-07-29] MEDS: VANCOMYCIN INJ 1,500 MG in SODIUM CHLORID 0.9% 500 ML INJ 500 ML IV SCH ×2 (06:46→18:12)
[2017-07-29 08:00] VITALS: BP 166/96; PULSE 72; RESP 18; TEMP 98; O2SAT 96
[2017-07-29] MEDS: INSULIN ASPART SUPPLEMENTAL SCALE SQ SCH ×4 (08:00→22:20)
[2017-07-29] MEDS: DOCUSATE SODIUM 50 MG/SENNA 8.6 MG TAB PO SCH ×2 (09:00→20:55)
[2017-07-29] MEDS: SODIUM CHLORIDE 0.9% FLUSH 10 ML FLUSH IV FLUSH SCH ×2 (09:14→21:01)
[2017-07-29] MEDS: INSULIN DETEMIR 100 UNITS/ML VIAL SQ SCH ×2 (09:14→22:20)
[2017-07-29] MEDS: glipiZIDE 5 MG TAB PO SCH (09:15)
[2017-07-29] MEDS: PREGABALIN 25 MG CAP PO SCH ×2 (09:15→20:55)
[2017-07-29] MEDS: oxyCODONE HCL 20 MG CONTROLLED RELEASE TAB PO SCH ×2 (10:52→23:25)
[2017-07-29 12:00] VITALS: BP 155/87; PULSE 70; RESP 20; TEMP 98; O2SAT 99
[2017-07-29] MEDS ORDERED: ONDANSETRON HCL 4 MG/2 ML VIAL IV PUSH ONE (12:00)
[2017-07-29] MEDS ORDERED: ePHEDrine/NS 25 MG/5 ML SYRINGE IV ONE (12:00)
[2017-07-29] MEDS ORDERED: PROPOFOL 200 MG/20 ML AMP IV ONE (12:00)
[2017-07-29] MEDS ORDERED: LIDOCAINE HCL 1% PF 5 ML SYRINGE OTHER ONE (12:00)
[2017-07-29] MEDS ORDERED: PHENYLEPH/NS 1000 MCG/10 ML SYR IV ONE (12:00)
--- NOTE | 2017-07-29 12:10 | HHI.PR ---
Subjective Remarks Nursing denies any deterioration since last night. Says pain is better with dilaudid. Is looking forward to surgery today. Objective Vital Signs Date Time Temp Pulse Resp B/P (MAP) Pulse Ox O2 Delivery O2 Flow Rate FiO2 07/29/17 08:00 98.0 72 18 166/96 (119) 96 07/29/17 07:00 Room Air 07/29/17 04:00 97.8 73 20 156/74 (101) 99 07/29/17 04:00 Room Air 07/29/17 00:00 Room Air 07/29/17 00:00 97.7 85 20 179/87 (117) 96 07/28/17 20:00 Room Air 07/28/17 20:00 97.9 74 20 161/93 (115) 98 07/28/17 19:00 Room Air 07/28/17 16:00 97.8 74 20 154/90 (111) 98 I/O 07/28/17 07/28/17 07/28/17 07/29/17 07/29/17 07/29/17 07:00 15:00 23:00 07:00 15:00 23:00 Intake Total 960 ml 1030 ml 480 ml Output Total 1200 ml 1200 ml Balance -240 ml 1030 ml -720 ml Intake Oral 960 ml 480 ml 480 ml IV Total 550 ml Output Urine Total 1200 ml 1200 ml # Voids 4 # Bowel Movements 2 Result Diagram: 07/28/17 0545 Procedures Status post fifth ray resection right lower extremity Objective Remarks Right foot is in postop dressing with wound VAC placed with toes exposed Has intact sensation to dull soft touch on the first 2 great toes, decrease sensation on third toe, no sensation on fourth toe A/P Assessment and Plan Patient is a 52-year-old male with past medical history of PAD, multiple left lower extremity surgery and amputation who came into the hospital for evaluation of right necrotic fifth toe and right foot cellulitis. //Right foot cellulitis, right fifth toe necrosis possible osteomyelitis //Postoperative right foot debridement performed on 07/21 by podiatry w/ subsequent wound vac placement. -vancomycin, Zosyn -IV fluid for hydration -Pain medication Percocet, IV Dilaudid, patient informed that we will do this only until shortly postop the second operation with plans of discontinuing IV pain medication in the last 12 hours of his hospitalization -revisiting OR for irrigation planned for today //Right posterior back abscess, apparently treated in [place] 1 month ago. Reportedly was MRSA. Patient continues on vancomycin and Zosyn. ID helping co- manage. = Patient seen by general surgery. No need for incision and drainage. We will continue to monitor. //Diabetes mellitus. Uncontrolled. A1c is 10.7 -improving w/ SS and levemir -glipizide, will need both levemir and glipizide upon discharge at least //PAD, PVD //Diabetic ulcer -Wound care by nursing //Tobacco use -Nicotine patch. Counselled //DVT prop Heparin Elton Barnard MD Jul 29, 2017 12:10
[2017-07-29] MEDS ORDERED: LIDOCAINE HCL 2% PF 10 ML VIAL ONE (12:51)
--- NOTE | 2017-07-29 14:28 | HHI.PR ---
Immediate Post Op Note Procedure Date: Jul 29, 2017 Pre Op Diagnosis: Osteomyelitis right foot with gas gangrene, status post partial 5th ray amputation Post Op Diagnosis: same Surgeon: Kitty David DPM Boat Loader(s): Staff Procedure: Right foot partial 4th ray amputation with bone biopsy Findings: Consistent with diagnosis. Previous surgical wound with fibronecrotic tissue distally. Wound opened and more bone from 5th metatarsal remnant removed and sent as bone biopsy. Right 4th toe and partial metatarsal removed and sent to pathology. No further necrotic tissue noted in surgical site. Irrigation with 1L normal saline and primary closure with 2-0 nylon Dressing with xeroform, 4x4, abd, cast padding, ion right foot. Weightbearing to heel only right lower extremity in fracture boot. Keep dressing clean, dry. No wound vac needed. Continue with plan for oral antibiotics upon discharge. Follow up 1 week in clinic for dressing change in office. If home health can be arranged, dry sterile dressing change weekly may be a good idea due to patient's current living situation and inability to easily get to clinic. Additional Information: n/a Complications: None Specimen(s) removed: 1. Right 4th toe and distal metatarsal 2. Bone biopsy right residual 5th metatarsal Estimated blood loss: 30mL Anesthesia: General, Local (10mL 2% lidocaine plain) Drains: None IVF Tourniquet time (min at mmHg) n/a Patient Condition: Good Date/Time of Procedure: SEE SURGICAL CARE RECORD Kitty David DPM Jul 29, 2017 14:28
[2017-07-29] MEDS: cefTRIAXone INJ 2,000 MG in SODIUM CHLORIDE 0.9% INJ 100 ML IV SCH (15:02)
[2017-07-29 16:00] VITALS: BP 154/71; PULSE 83; RESP 18; TEMP 97.4; O2SAT 98
--- NOTE | 2017-07-29 16:02 | RADRPT ---
EXAM DATE: 07/29/2017 3:55 PM EDT AGE/SEX: 52 years / Male INDICATIONS: Partial amputation. CLINICAL DATA: This is the patient's initial encounter. Patient reports that signs and symptoms have been present for 1 day and indicates a pain score of 0/10. MEDICAL/SURGICAL HISTORY: . Diabetes mellitus type II. MRSA. Smoker. . Right foot 5th metatars al digit removal. COMPARISON: [facility] [place], FOOT RIGHT COMPLETE ([id number]), 07/28/2017. . FINDINGS: Fourth and fifth digits have now been amputated at the level of the proximal metatarsal shafts. Soft tissues in the surgical region are irregular. No radiopaque foreign body. No acute osseous destructio n seen of the remaining bones. CONCLUSION: Fourth and fifth digit amputation at the level of the proximal metatarsal shafts. No evidence of an a cute complication. Electronically signed by: Marshal Ramsay MD 07/29/2017 4:01 PM EDT
--- NOTE | 2017-07-29 17:32 | EKG ---
Date Performed: 07/29/2017 Time Performed: 07:49:06 PTAGE: 52 years EKG: Sinus rhythm with borderline 1st degree A-V block Borderline ECG NO PREVIOUS TRACING DOCTOR: Shiv Chapman Interpretating Date/Time 07/29/2017 17:31:30
[2017-07-29] MEDS ORDERED: PHARMACY ORDERED LAB ONE (17:45)
--- NOTE | 2017-07-29 17:46 | MP ---
cc: JoannOwenfrederick Blu DATE OF OPERATION: 07/29/2017 INDICATIONS FOR PROCEDURE: The presented initially with gas gangrene of the right fifth toe and underwent partial fifth ray amputation on 07/21/[address] Amos. He was noted to have some fibrotic and mild necrotic tissue to the distal aspect of the wound. I discussed with the patient that he could undergo a bedside debridement of the wound and still have a wound that would require wound VAC and/or long-term wound care to achieve healing. I discussed with the patient that due to his admitted noncompliance and his admitted noncompliance that would happen in the future with not putting weight on the area and not complying with proper wound VAC dressing changes and staying off the foot, I discussed with him that he would have a better chance of saving his foot if he left the hospital with a sutured wound instead of an open wound. The patient did agree with this and stated that he would like to undergo some type of a procedure that would give him closure of the wound with sutures. I discussed with him that we could perform a right partial fourth ray amputation and remove the fourth toe and some bone behind it, in the metatarsal, in order to gain enough tissue to achieve primary closure. He agreed to move forward with surgery for right foot partial fourth ray amputation with bone biopsy. DESCRIPTION OF PROCEDURE: He was seen preoperatively by myself, nursing staff and anesthesia, where the correct patient, side and site were all confirmed to be correct in the right foot. He was then seen in preop holding and then taken to surgical suite in supine position. Attention was directed to the right foot. It was prepped and draped in normal sterile fashion followed by attention directed to the lateral aspect of the right foot, after timeout performed as per facility protocol. The right lateral foot was addressed. Previous sutures were removed. The fourth digit was disarticulated at the MTP joint, followed by bone resected at the level of midshaft 4th metatarsal. This was sent as a specimen followed by bone taken from the residual aspect of the fifth metatarsal and sent as a bone biopsy as well. A culture was taken from the wound followed by debulking of the tissues and removal of any further fibrotic tissue. There was no evidence of infectious tissue prior to irrigation with 1 liter normal saline and primary closure with 2-0 nylon suture. A dressing consisting of Xeroform, 4 x 4's, ABD, cast padding and Iker were applied to the right foot. He will be weightbearing to the heel only in the right lower extremity in a boot. He will keep dressing clean, dry and intact. No wound VAC will be needed at this time secondary to delayed primary closure able to be achieved. However, he does need to continue with the plan for long-term oral antibiotics upon discharge. He needs to followup in clinic in 1 week for dressing change in the office. If home health can be arranged, I do recommend that they come out and apply a dry sterile dressing change weekly to the surgical site due to his inability to get to the clinic. SHORT OPERATIVE NOTE SURGEON: Kitty David DPM DIRECTOR OF PARTNERSHIPS: Staff. PREOPERATIVE DIAGNOSIS: Osteomyelitis, right foot with gas gangrene, status post partial fifth ray amputation. POSTOPERATIVE DIAGNOSIS: Osteomyelitis, right foot with gas gangrene, status post partial fifth ray amputation. PROCEDURE PERFORMED: Right foot partial fourth ray amputation with bone biopsy and delayed primary closure. PATHOLOGY: 1. Right fourth toe and distal metatarsal to pathology. 2. Bone biopsy, right residual fifth metatarsal. ANESTHESIA: General endotracheal anesthesia plus local consisting of 10 mL of 2% lidocaine plain. ESTIMATED BLOOD LOSS: 30 mL COMPLICATIONS: None. TOURNIQUET TIME: No tourniquet was utilized. FINDINGS: Healthy tissue, there was bleeding noted within the wound. CONDITION: Stable to PACU. DISPOSITION: Weightbearing as tolerated to the heel only to the right lower extremity in fracture-boot. Followup in clinic in 1 week after discharge. SILVIA Alaniz/RUBIN , 05:17 PM , 05:45 PM
[2017-07-29 20:00] VITALS: BP 153/74; PULSE 86; RESP 22; TEMP 97.1; O2SAT 95
[2017-07-30] VITALS (7 sets, daily range): BP systolic 140–183; BP diastolic 68–86; PULSE 83–92; RESP 16–24; TEMP 97.4–98.6; O2SAT 93–96
[2017-07-30] MEDS: HYDROmorphone HCL PF 0.5 MG/0.5 ML SYRINGE IV PUSH PRN ×2 (01:39→09:58)
[2017-07-30] MEDS: oxyCODONE/ACETAMINOPHEN 7.5 MG/325 MG TAB PO PRN ×4 (03:40→20:16)
[2017-07-30] MEDS ORDERED: HYDROmorphone HCL PF 0.5 MG/0.5 ML SYRINGE IV ONE (04:30)
[2017-07-30] MEDS: VANCOMYCIN INJ 1,500 MG in SODIUM CHLORID 0.9% 500 ML INJ 500 ML IV SCH ×2 (06:17→17:51)
[2017-07-30] MEDS: INSULIN ASPART SUPPLEMENTAL SCALE SQ SCH ×4 (08:00→20:17)
[2017-07-30] MEDS: SODIUM CHLORIDE 0.9% FLUSH 10 ML FLUSH IV FLUSH SCH ×2 (09:00→20:16)
[2017-07-30] MEDS: glipiZIDE 5 MG TAB PO SCH (09:25)
[2017-07-30] MEDS: PREGABALIN 25 MG CAP PO SCH ×2 (09:25→20:17)
[2017-07-30] MEDS: DOCUSATE SODIUM 50 MG/SENNA 8.6 MG TAB PO SCH ×2 (09:25→20:17)
[2017-07-30] MEDS: INSULIN DETEMIR 100 UNITS/ML VIAL SQ SCH ×2 (11:26→20:17)
--- NOTE | 2017-07-30 11:34 | HHI.PR ---
Subjective Remarks Nursing denies any deterioration since last night. Patient says that the 0.2 mg Dilaudid that I ordered for him prior to surgery is not helping post surgery. Says that the 2 mg IV Dilaudid helps. In regards to his diabetes he says he used to take metformin previously but his says that he was not compliant with it, he does not report any adverse side effects from it. His sugars are less than 200s fortunately at this time with glipizide and insulin. Objective Vital Signs Date Time Temp Pulse Resp B/P (MAP) Pulse Ox O2 Delivery O2 Flow Rate FiO2 07/30/17 08:00 98.6 84 18 144/84 (104) 96 07/30/17 04:00 98.3 87 18 140/68 (92) 94 07/30/17 01:48 158/76 (103) 07/30/17 00:00 97.4 92 24 183/86 (118) 95 07/29/17 20:00 Room Air 07/29/17 20:00 97.1 86 22 153/74 (100) 95 07/29/17 16:00 97.4 83 18 154/71 (98) 98 07/29/17 14:45 77 16 106/58 (74) 98 Nasal Cannula 2 07/29/17 14:30 77 16 109/55 (73) 98 Nasal Cannula 2 07/29/17 14:15 82 16 103/53 (70) 99 Nasal Cannula 2 07/29/17 14:13 97.6 83 16 107/55 (72) 98 Nasal Cannula 2 07/29/17 12:00 98.0 70 20 155/87 (109) 99 I/O 07/29/17 07/29/17 07/29/17 07/30/17 07/30/17 07/30/17 07:00 15:00 23:00 07:00 15:00 23:00 Intake Total 480 ml 1495 ml 715 ml Output Total 1200 ml 30 ml 500 ml 900 ml Balance -720 ml 1465 ml 215 ml -900 ml Intake Oral 480 ml 480 ml IV Total 515 ml 715 ml Other 500 ml Output Urine Total 1200 ml 500 ml 900 ml Estimated Blood Loss 30 ml # Voids 1 # Bowel Movements 0 1 Result Diagram: 07/28/17 0545 Procedures Status post fifth ray resection right lower extremity Objective Remarks Right foot is in postop shoe with dressing in place sitting up in chair, NAD A/P Assessment and Plan Patient is a 52-year-old male with past medical history of PAD, multiple left lower extremity surgery and amputation who came into the hospital for evaluation of right necrotic fifth toe and right foot cellulitis. //Right foot cellulitis, right fifth toe necrosis possible osteomyelitis //Postoperative right foot debridement performed on 07/21 by podiatry w/ subsequent wound vac placement. -vancomycin, rocephin -Pain medication Percocet, and controlled release oxycodone, IV Dilaudid 2 mg today; attempt to wean down to orals by tomorrow -1 day (07/29) s/p R foot irrigation //Right posterior back abscess, apparently treated in [place] 1 month ago. Reportedly was MRSA. Patient continues on vancomycin and Zosyn. ID helping co- manage. = gen surgery signed off, No need for incision and drainage. //Diabetes mellitus. A1c is 10.7 -improving w/ SS and levemir -glipizide, will need both levemir and glipizide upon discharge at least, can also start metformin upon discharge //PAD, PVD //Diabetic ulcer -Wound care by nursing //Tobacco use -Nicotine patch. Counselled //DVT prop Heparin Discharge Planning DC pending ID clearance and final outpt recs, cleared from podiatry standpoint per conversation today for discharge once pain tolerable with orals Elton Barnard MD Jul 30, 2017 11:34
[2017-07-30] MEDS: oxyCODONE HCL 20 MG CONTROLLED RELEASE TAB PO SCH ×2 (14:02→22:15)
[2017-07-30] MEDS: HYDROmorphone HCL PF 2 MG/ML VIAL IV PUSH PRN ×3 (14:03→22:16)
[2017-07-30] MEDS: cefTRIAXone INJ 2,000 MG in SODIUM CHLORIDE 0.9% INJ 100 ML IV SCH (16:01)
--- NOTE | 2017-07-30 20:42 | HHI.PR ---
Subjective Remarks Patient seen postop day 1 from fourth metatarsal resection performed by Dr. David. Patient's is bedside. Patient denies any nausea vomiting fevers or chills. States he is awaiting oral antibiotic for discharge. Objective Vital Signs Date Time Temp Pulse Resp B/P (MAP) Pulse Ox O2 Delivery O2 Flow Rate FiO2 07/30/17 16:00 98.3 87 18 148/72 (97) 93 07/30/17 12:00 98.2 83 16 148/77 (100) 94 07/30/17 08:00 98.6 84 18 144/84 (104) 96 07/30/17 07:00 Room Air 07/30/17 04:00 98.3 87 18 140/68 (92) 94 07/30/17 01:48 158/76 (103) 07/30/17 00:00 97.4 92 24 183/86 (118) 95 I/O 07/29/17 07/29/17 07/29/17 07/30/17 07/30/17 07/30/17 07:00 15:00 23:00 07:00 15:00 23:00 Intake Total 480 ml 1495 ml 715 ml 600 ml Output Total 1200 ml 30 ml 500 ml 900 ml Balance -720 ml 1465 ml 215 ml -900 ml 600 ml Intake Oral 480 ml 480 ml 600 ml IV Total 515 ml 715 ml Other 500 ml Output Urine Total 1200 ml 500 ml 900 ml Estimated Blood Loss 30 ml # Voids 1 5 # Bowel Movements 0 1 4 Result Diagram: 07/28/17 0545 Imaging Last Impressions Foot X-Ray 07/29/17 0000 Signed Impressions: CONCLUSION: Fourth and fifth digit amputation at the level of the proximal metatarsal shaft s. No evidence of an acute complication. Foot MRI 07/21/17 0000 Signed Impressions: CONCLUSION: 1. Destructive bone changes with associated bone marrow edema and abnormal enh ancement involving the distal fifth metatarsal, fifth metatarsophalangeal joint and fifth toe characteristic of osteomyelitis and septic arthritis. 2. No other focal bony abnormality is noted. Extremity Arterial Study 07/21/17 0000 Signed Impressions: CONCLUSION: 1. No significant stenosis/occlusive disease Ankle X-Ray 07/21/17 0000 Signed Impressions: CONCLUSION: Degenerative changes. No acute abnormality. Procedures Status post fifth ray resection right lower extremity Status post fourth ray resection with primary closure Other Results Microbiology Date/Time Source Procedure Growth Status 07/21/17 13:40 Blood Peripheral Aerobic Blood Culture - Final NO GROWTH IN 5 DAYS Complete 07/21/17 13:40 Blood Peripheral Anaerobic Blood Culture - Final NO GROWTH IN 5 DAYS Complete 07/21/17 23:44 Wound Foot Acid Fast Stain - Final NO ACID FAST BACILLI SEEN Resulted 07/21/17 23:44 Wound Foot Mycobacterial Culture - Preliminary NO GROWTH IN 1 WEEK Resulted Objective Remarks Right fourth/fifth ray resections noted with sutures intact and skin well coapted to incision site. Dorsal right foot wound noted with granular base superficial in nature. Decreased erythema and edema noted to right lower extremity. Active passive dorsiflexion of digits 1 through 3 noted right lower extremity. Medications and IVs Current Medications Medications (Trade) Dose Ordered Sig/Payton Route Start Time Stop Time Status Last Admin (NS Flush) 2 ml UNSCH PRN IV FLUSH 07/21/17 15:45 07/29/17 06:47 (NS Flush) 2 ml BID IV FLUSH 07/21/17 21:00 07/30/17 20:16 (Reglan Inj) 5 mg Q6H PRN IV PUSH 07/21/17 15:45 (Narcan Inj) 0.4 mg UNSCH PRN IV PUSH 07/21/17 15:45 (Yahaira-Colace) 1 tab BID PO 07/21/17 21:00 07/30/17 09:25 (Milk Of Magnesia Liq) 30 ml Q12H PRN PO 07/21/17 15:45 (Senokot) 17.2 mg Q12H PRN PO 07/21/17 15:45 (Dulcolax Supp) 10 mg DAILY PRN RECTAL 07/21/17 15:45 (Lactulose Liq) 30 ml DAILY PRN PO 07/21/17 15:45 (Percocet 7.5-325 Mg) 1 tab Q4H PRN PO 07/21/17 18:00 07/30/17 20:16 (NovoLOG SUPPLEMENTAL SCALE) 1 ACHS SLIDING SCALE SQ 07/23/17 17:00 07/29/17 22:20 (D50w (Vial) Inj) 25 ml UNSCH PRN IV PUSH 07/23/17 14:00 (Glucagon Inj) 1 mg UNSCH PRN OTHER 07/23/17 14:00 Pharmacy Profile Note 0 ml @ 0 mls/hr UNSCH OTHER 07/24/17 15:15 Ceftriaxone Sodium 2000 mg/ Sodium Chloride 100 ml @ 200 mls/hr Q24H IV 07/24/17 16:00 07/30/17 16:01 (OxyCONTIN CR) 20 mg Q12H PO 07/25/17 11:00 07/30/17 14:02 (Lyrica) 25 mg Q12HR PO 07/26/17 21:00 07/30/17 20:17 (Levemir Inj) 5 units Q12HR SQ 07/26/17 11:00 07/30/17 20:17 (Glucotrol) 5 mg DAILYAC PO 07/28/17 08:00 07/30/17 09:25 Vancomycin HCl 1500 mg/Sodium Chloride 515 ml @ 250 mls/hr Q12H IV 07/28/17 18:00 07/30/17 17:51 Lactated Ringer's 1,000 ml @ 30 mls/hr Q24H PRN IV 07/29/17 03:00 08/01/17 02:59 Sodium Chloride 500 ml @ 30 mls/hr [id number] PRN IV 07/29/17 03:00 08/01/17 02:59 (Betadine 5% Antisepsis Kit) 1 applic [employer]UCATION PAR[employer]ROFESSION[employer] PRN EACH NARE 07/29/17 03:00 08/01/17 02:59 (Chlorhexidine 2% Cloth) 3 pack [employer]UC[employer] PRN TOPICAL 07/29/17 03:00 08/01/17 02:59 ([facility] [place] [facility] Ordered Lab Info) SPECIFIC LAB TO BE ... ONCE ONCE .XX 07/31/17 05:45 07/31/17 05:46 (Dilaudid Pf Inj) 2 mg Q4H PRN IV PUSH 07/30/17 11:30 07/30/17 17:52 Assessment and Plan Assessment and Plan 52 year old male with gas gangrene to right foot Patient examined and evaluated Dressing change to right lower extremity Okay to DC per podiatry Patient to follow-up with Dr. Rashid David in office within 1 week of discharge Antibiotic therapy per infectious disease, awaiting Hayley Jose DPM Jul 30, 2017 20:42
[2017-07-31] VITALS (7 sets, daily range): BP systolic 113–154; BP diastolic 54–75; PULSE 72–85; RESP 13–20; TEMP 97.8–98.5; O2SAT 92–98
[2017-07-31] MEDS: oxyCODONE/ACETAMINOPHEN 7.5 MG/325 MG TAB PO PRN ×6 (01:36→22:19)
[2017-07-31] MEDS: HYDROmorphone HCL PF 2 MG/ML VIAL IV PUSH PRN ×5 (04:05→20:05)
[2017-07-31] MEDS: VANCOMYCIN INJ 1,500 MG in SODIUM CHLORID 0.9% 500 ML INJ 500 ML IV SCH ×2 (05:40→18:12)
[2017-07-31] MEDS ORDERED: PHARMACY ORDERED LAB ONE (05:45)
[2017-07-31 07:30] LABS: CREATININE 0.9 MG/DL (0.60-1.30)
[2017-07-31] MEDS: INSULIN ASPART SUPPLEMENTAL SCALE SQ SCH ×4 (08:00→22:20)
[2017-07-31] MEDS: PREGABALIN 25 MG CAP PO SCH ×2 (08:02→22:19)
[2017-07-31] MEDS: glipiZIDE 5 MG TAB PO SCH (08:02)
[2017-07-31] MEDS: DOCUSATE SODIUM 50 MG/SENNA 8.6 MG TAB PO SCH ×2 (08:02→21:00)
[2017-07-31] MEDS: SODIUM CHLORIDE 0.9% FLUSH 10 ML FLUSH IV FLUSH SCH ×2 (08:03→22:21)
[2017-07-31] MEDS: INSULIN DETEMIR 100 UNITS/ML VIAL SQ SCH ×2 (08:03→22:21)
[2017-07-31] MEDS: oxyCODONE HCL 20 MG CONTROLLED RELEASE TAB PO SCH ×2 (10:11→22:19)
--- NOTE | 2017-07-31 10:19 | HHI.FF ---
Face to Face Verification Diagnosis: (1) Diabetes (2) Right foot infection (3) Sepsis (4) Type 2 diabetes mellitus with hyperglycemia Home Health Nursing Order: Medical education Signs/symptoms of disease process Medication education-adverse effect Instructions: Needs diabetes education Need to follow-up pain clinic in 1 week for dressing change in the office with podiatry. If home health care can be arranged, I do recommend that they come out and apply dry sterile dressing change weekly to the surgical site due to his inability to get to the clinic I have seen patient Bruno Owen on 07/31/17. My clinical findings support the need for the requested home health care services because: Deconditioned w/ increased weakness Limited ability to care for self I certify that my clinical findings support that this patient is homebound because: Unsteady gait/balance Aniket Vazquez MD Jul 31, 2017 10:19
--- NOTE | 2017-07-31 14:25 | HHI.PR ---
Subjective Remarks Follow-up right foot gangrene status post fourth metatarsal resection July 31, 2017-patient seen and examined, currently afebrile and reports right foot pain control. States he has no money to take care of himself for today I would like to stay 1 more day. Objective Vitals Vital Signs Date Time Temp Pulse Resp B/P (MAP) Pulse Ox O2 Delivery O2 Flow Rate FiO2 07/31/17 12:00 98.5 72 20 147/75 (99) 98 07/31/17 08:00 98.5 73 13 131/66 (87) 95 07/31/17 07:00 Room Air 07/31/17 04:00 98.0 84 18 154/74 (100) 96 07/31/17 00:00 97.8 83 18 149/68 (95) 96 07/30/17 20:00 Room Air 07/30/17 20:00 98.1 90 18 158/82 (107) 95 07/30/17 16:00 98.3 87 18 148/72 (97) 93 I/O 07/30/17 07/30/17 07/30/17 07/31/17 07/31/17 07/31/17 07:00 15:00 23:00 07:00 15:00 23:00 Intake Total 1115 ml Output Total 900 ml Balance -900 ml 1115 ml Intake Oral 600 ml IV Total 515 ml Output Urine Total 900 ml # Voids 5 # Bowel Movements 1 4 Result Diagram: 07/31/17 0510 Imaging Last Impressions Foot X-Ray 07/29/17 0000 Signed Impressions: CONCLUSION: Fourth and fifth digit amputation at the level of the proximal metatarsal shaft s. No evidence of an acute complication. Foot MRI 07/21/17 0000 Signed Impressions: CONCLUSION: 1. Destructive bone changes with associated bone marrow edema and abnormal enh ancement involving the distal fifth metatarsal, fifth metatarsophalangeal joint and fifth toe characteristic of osteomyelitis and septic arthritis. 2. No other focal bony abnormality is noted. Extremity Arterial Study 07/21/17 0000 Signed Impressions: CONCLUSION: 1. No significant stenosis/occlusive disease Ankle X-Ray 07/21/17 0000 Signed Impressions: CONCLUSION: Degenerative changes. No acute abnormality. Objective Remarks GENERAL: NAD SKIN: Warm and dry. HEAD: Normocephalic. EYES: No scleral icterus. No injection or drainage. NECK: Supple, trachea midline. No JVD or lymphadenopathy. CARDIOVASCULAR: Regular rate and rhythm without murmurs, gallops, or rubs. RESPIRATORY: Breath sounds equal bilaterally. No accessory muscle use. GASTROINTESTINAL: Abdomen soft, non-tender, nondistended. MUSCULOSKELETAL: No cyanosis, or edema. L-BKA; dressing over right foot BACK: Nontender without obvious deformity. No CVA tenderness. A/P Problem List: (1) Right foot infection ICD Code: L08.9 - Local infection of the skin and subcutaneous tissue, unspecified Status: Acute (2) Sepsis ICD Code: A41.9 - Sepsis, unspecified organism Status: Acute Assessment and Plan 52-year-old man with Right foot gangrene s/p right foot debridement performed on 07/21 by podiatry w/ subsequent wound vac placement. s/p right fourth metatarsal resection -Currently on vancomycin, Rocephin, patient will need Zyvox on discharge -Pain medication Percocet, and controlled release oxycodone, IV Dilaudid 2 mg Right posterior back abscess, apparently treated in [place] 1 month ago. Patient continues on vancomycin and Zosyn. ID helping co-manage. gen surgery signed off, No need for incision and drainage. Diabetes mellitus. A1c is 10.7 -Currently on glipizide 5 mg daily and Levemir 5 units every 12 hours PAD, PVD Diabetic ulcer -Wound care by nursing Tobacco use -Nicotine patch. Counselled DVT prop Heparin Problem Qualifiers (1) Sepsis: Qualified Codes: A41.9 - Sepsis, unspecified organism Aniket Vazquez MD Jul 31, 2017 14:25
[2017-07-31] MEDS ORDERED: DILA2TAB4 PO (14:27)
[2017-07-31] MEDS ORDERED: LEVEMIR SQ (14:27)
[2017-07-31] MEDS: cefTRIAXone INJ 2,000 MG in SODIUM CHLORIDE 0.9% INJ 100 ML IV SCH (16:17)
[2017-08-01] MEDS: HYDROmorphone HCL PF 2 MG/ML VIAL IV PUSH PRN ×4 (00:11→14:34)
[2017-08-01] MEDS: oxyCODONE/ACETAMINOPHEN 7.5 MG/325 MG TAB PO PRN ×4 (04:25→16:17)
[2017-08-01 04:47] VITALS: BP 153/84; PULSE 104; RESP 16; TEMP 99.9; O2SAT 96
[2017-08-01] MEDS: VANCOMYCIN INJ 1,500 MG in SODIUM CHLORID 0.9% 500 ML INJ 500 ML IV SCH (05:50)
[2017-08-01] MEDS: INSULIN ASPART SUPPLEMENTAL SCALE SQ SCH ×3 (08:00→17:00)
[2017-08-01 08:04] VITALS: BP 141/60; PULSE 89; RESP 17; TEMP 98.6; O2SAT 93
[2017-08-01] MEDS: glipiZIDE 5 MG TAB PO SCH (08:34)
[2017-08-01] MEDS: DOCUSATE SODIUM 50 MG/SENNA 8.6 MG TAB PO SCH (08:35)
[2017-08-01] MEDS: PREGABALIN 25 MG CAP PO SCH (08:35)
[2017-08-01] MEDS: SODIUM CHLORIDE 0.9% FLUSH 10 ML FLUSH IV FLUSH SCH (08:35)
[2017-08-01] MEDS: INSULIN DETEMIR 100 UNITS/ML VIAL SQ SCH (08:36)
[2017-08-01] MEDS: oxyCODONE HCL 20 MG CONTROLLED RELEASE TAB PO SCH (11:35)
--- NOTE | 2017-08-01 11:39 | HHI.PR ---
Subjective Remarks Follow-up right foot gangrene status post fourth metatarsal resection July 31, 2017-patient seen and examined, currently afebrile and reports right foot pain control. States he has no money to take care of himself for today I would like to stay 1 more day. August 01, 2017-patient seen and examined, complains of swelling of the right lower extremity. But denies any pain. No shortness of breath either. Objective Vitals Vital Signs Date Time Temp Pulse Resp B/P (MAP) Pulse Ox O2 Delivery O2 Flow Rate FiO2 08/01/17 08:04 98.6 89 17 141/60 (87) 93 08/01/17 04:47 99.9 104 16 153/84 (107) 96 07/31/17 23:40 98.5 84 16 130/60 (83) 94 07/31/17 21:21 98.4 85 17 113/54 (73) 92 07/31/17 20:00 Room Air 07/31/17 16:00 98.2 77 15 142/67 (92) 95 07/31/17 12:00 98.5 72 20 147/75 (99) 98 I/O 07/31/17 07/31/17 07/31/17 08/01/17 08/01/17 08/01/17 06:59 14:59 22:59 06:59 14:59 22:59 Intake Total 480 ml 480 ml Balance 480 ml 480 ml Intake Oral 480 ml 480 ml # Voids 4 2 # Bowel Movements 2 0 Result Diagram: 07/31/17 0510 Objective Remarks GENERAL: NAD SKIN: Warm and dry. HEAD: Normocephalic. EYES: No scleral icterus. No injection or drainage. NECK: Supple, trachea midline. No JVD or lymphadenopathy. CARDIOVASCULAR: Regular rate and rhythm without murmurs, gallops, or rubs. RESPIRATORY: Breath sounds equal bilaterally. No accessory muscle use. GASTROINTESTINAL: Abdomen soft, non-tender, nondistended. MUSCULOSKELETAL: No cyanosis, or edema. L-BKA; dressing over right foot BACK: Nontender without obvious deformity. No CVA tenderness. A/P Problem List: (1) Right foot infection ICD Code: L08.9 - Local infection of the skin and subcutaneous tissue, unspecified Status: Acute (2) Sepsis ICD Code: A41.9 - Sepsis, unspecified organism Status: Acute Assessment and Plan 52-year-old man with Right foot gangrene s/p right foot debridement performed on 07/21 by podiatry w/ subsequent wound vac placement. s/p right fourth metatarsal resection -Currently on vancomycin, Rocephin, patient will need Zyvox on discharge -Pain medication Percocet, and controlled release oxycodone, IV Dilaudid 2 mg Right posterior back abscess, apparently treated in [place] 1 month ago. Patient continues on vancomycin and Zosyn. ID helping co-manage. gen surgery signed off, No need for incision and drainage. Diabetes mellitus. A1c is 10.7 -Currently on glipizide 5 mg daily and Levemir 5 units every 12 hours PAD, PVD Diabetic ulcer -Wound care by nursing Tobacco use -Nicotine patch. Counselled Swelling RLE? Check Soft tissue US and treat accordingly DVT prop Heparin Problem Qualifiers (1) Sepsis: Qualified Codes: A41.9 - Sepsis, unspecified organism Aniket Vazquez MD Aug 01, 2017 11:39
[2017-08-01 12:04] VITALS: BP 117/59; PULSE 89; RESP 17; TEMP 97.9; O2SAT 96
--- NOTE | 2017-08-01 14:59 | RADRPT ---
EXAM DATE: 08/01/2017 2:52 PM EDT AGE/SEX: 52 years / Male INDICATIONS: Right lateral upper leg swelling. CLINICAL DATA: This is the patient's initial encounter. Patient reports that signs and symptoms have been present for 2 days and indicates a pain score of 0/10. Location: Laterality: MEDICAL/SURGICAL HISTORY: Peripheral artery disease. Right foot cellulitis. Sepsis. . Boil on back. Left lower extremity multiple surgeries and BKA amputation. COMPARISON: No prior [place] exams available for comparison. FINDINGS: Examination of the patient's right thigh with dedicated and focused attention to the area of the clin ical concern demonstrate soft tissue swelling without fluid collections or mass. CONCLUSION: 1. Soft tissue swelling and edema possibly inflammatory without focal abscess or mass. Electronically signed by: Ynes Bonilla MD 08/01/2017 2:58 PM EDT
--- NOTE | 2017-08-01 15:52 | HHI.DS ---
Discharge Summary Admission Date July 21, 2017 at 15:44 Discharge Date: Aug 01, 2017 Admitting Diagnosis acute nectrotic toe and right foot cellulitis, sepsis (1) Right foot infection ICD Code: L08.9 - Local infection of the skin and subcutaneous tissue, unspecified Status: Acute (2) Sepsis ICD Code: A41.9 - Sepsis, unspecified organism Status: Acute Procedures 4th right metatarsal amputation Brief History - From Admission Written by Anette Fairchild, acting as scribe for Dr. Hamlin on 07/21/17 at 17:52. Patient is a 52-year-old male with past medical history of PAD, multiple left lower extremity surgery and amputation who came into the hospital for evaluation of right necrotic fifth toe and right foot cellulitis. Patient states that he just woke up this morning, went to the bathroom and saw his right toe black. States he "flipped out and did not know what to do." Patient states that he checks his foot daily but does not really pay attention. Denies any trauma or insect bite but also reports that in the past he has had previous spider bites on his legs but doesn't recall any this time. Denies any medical history including diabetes, HTN and reports it runs in his family but he does not have it. Patient also states that he had abscess on his back that was packed, and he was taking antibiotic for it. Patient states that his left lower extremity has multiple surgeries and wounds he finally had an amputation last September 2016. Complaints of pain and discomfort right lower extremity, unrelieved by pain medication, aggravated by movement, aggravated by MRI, and describes the pain as a nagging pain. Denies SOB/ dyspnea. Denies chest pain, palpitations, headaches, dizziness. Denies fevers, chills, n/v/d. Denies hematuria, dysuria. White count 11.3, with bandemia, hyponatremia Na 127, elevated creatinine 1.62, EGFR 45 Blood glucose 330, lactic acid 2.1 Elevated C-reactive protein 14 Foot x-ray showed destructive bone changes with associated bone marrow edema and abnormal enhancement involving the distal fifth metatarsal, fifth met tarsophalangeal joint and fifth toe characteristic of osteomyelitis and septic arthritis. 2. No other focal bony abnormalities noted Ankle x-ray showed degenerative changes. No acute abnormality Foot MRI showed radiographic findings consistent with cellulitis CBC/BMP: 07/31/17 0510 Significant Findings Laboratory Tests Test 07/29/17 17:55 07/31/17 05:10 Vancomycin Level Trough 18.7 MCG/ML (5.0-10.0) 16.3 MCG/ML (5.0-10.0) Imaging Last Impressions Lower Extremity Ultrasound 08/01/17 1139 Signed Impressions: CONCLUSION: 1. Soft tissue swelling and edema possibly inflammatory without focal abscess or mass. Foot X-Ray 07/29/17 0000 Signed Impressions: CONCLUSION: Fourth and fifth digit amputation at the level of the proximal metatarsal shaft s. No evidence of an acute complication. Foot MRI 07/21/17 0000 Signed Impressions: CONCLUSION: 1. Destructive bone changes with associated bone marrow edema and abnormal enh ancement involving the distal fifth metatarsal, fifth metatarsophalangeal joint and fifth toe characteristic of osteomyelitis and septic arthritis. 2. No other focal bony abnormality is noted. Extremity Arterial Study 07/21/17 0000 Signed Impressions: CONCLUSION: 1. No significant stenosis/occlusive disease Ankle X-Ray 07/21/17 0000 Signed Impressions: CONCLUSION: Degenerative changes. No acute abnormality. PE at Discharge GENERAL: NAD SKIN: Warm and dry. HEAD: Normocephalic. EYES: No scleral icterus. No injection or drainage. NECK: Supple, trachea midline. No JVD or lymphadenopathy. CARDIOVASCULAR: Regular rate and rhythm without murmurs, gallops, or rubs. RESPIRATORY: Breath sounds equal bilaterally. No accessory muscle use. GASTROINTESTINAL: Abdomen soft, non-tender, nondistended. MUSCULOSKELETAL: No cyanosis, or edema. L-BKA; dressing over right foot BACK: Nontender without obvious deformity. No CVA tenderness. Hospital Course Right foot gangrene s/p right foot debridement performed on 07/21 by podiatry w/ subsequent wound vac placement. s/p right fourth metatarsal resection -Currently on vancomycin, Rocephin, patient will need Zyvox on discharge -Pain medication Percocet, and controlled release oxycodone, IV Dilaudid 2 mg Right posterior back abscess, apparently treated in [place] 1 month ago. Patient continues on vancomycin and Zosyn. ID helping co-manage. gen surgery signed off, No need for incision and drainage. Diabetes mellitus. A1c is 10.7 -Currently on glipizide 5 mg daily and Levemir 5 units every 12 hours PAD, PVD Diabetic ulcer -Wound care by nursing Tobacco use -Nicotine patch. Counselled Swelling RLE? Check Soft tissue US and treat accordingly DVT prop Heparin Pt Condition on Discharge: Good Discharge Disposition: Disch w/ Home Health Serv Discharge Time: > 30 minutes Discharge Instructions DIET: Follow Instructions for: Diabetic Diet Activities you can perform: Regular-No Restrictions Follow up Referrals: PCP Follow-up - 1 Week with [facility] - 1 Week with [facility] New Medications: Blood Glucose Monitoring W/Device (Glucocom Blood Glucose Mo W/Device) 1 Kit Kit KIT .XX DIRECTED for Blood Sugar Management, #1 CareFine Pen [place] 32G X 5 mm (CareFine Pen [place] 32G X 5 mm) 32 Gauge X 3/ 16" Mis BOX .XX DIRECTED for Blood Sugar Management, #1 Glipizide ER (Glipizide ER) 5 Mg Luciana 5 MG PO DAILY for Blood Sugar Management, #30 TAB 0 Refills Take with breakfast or first main meal of the day. Glucocom Test Strips (Glucocom Test Strips) 1 Kathy Kathy EA .XX DIRECTED for Blood Sugar Management, #1 check sugars TID premeals Hydromorphone (Dilaudid) 2 Mg Tab 2 MG PO Q8H PRN for Pain Management, #15 TAB 0 Refills Insulin Detemir Inj (Levemir Flextouch Pen Inj) 300 unit/3 ML Pen 8 UNITS SQ Q12HR for Blood Sugar Management, #1 PEN 0 Refills Lancets (Lancets) 1 Mis Mis EA .XX DIRECTED for Blood Sugar Management, #1 0 Refills check sugars TID premeals Linezolid (Zyvox) 600 Mg Tab 600 MG PO Q12H for Infection for 14 Days, #28 TAB 0 Refills Insulin Detemir Inj (Levemir Inj) 1,000 unit/ 10 ML Vial 5 UNITS SQ Q12HR for Blood Sugar Management, #100 INJECTION 9 Refills Do not mix with any other Insulin. Pregabalin (Lyrica) 25 Mg Cap 25 MG PO Q12HR for neuropathy, #60 Aniket Coffey MD Aug 01, 2017 15:52
[2017-08-01] MEDS: cefTRIAXone INJ 2,000 MG in SODIUM CHLORIDE 0.9% INJ 100 ML IV SCH (16:18)
[2017-08-04] MEDS ORDERED: PHARMACY ORDERED LAB ONE (05:45)
== END 2017-08-01 18:07 | disposition home health service (06) | DRG 853 ==
LOC: NEPC 13:08 → NEDA 15:44 → N04B 16:59
PROVIDERS: ADMIT Hospitalist; ATTEND Hospitalist
PROC: 0Y6M0ZF Detachment at Right Foot, Partial 5th Ray, Open Approach (ICD-10-PCS; principal; 2017-07-21 19:10)
PROC: 0Y6M0ZD Detachment at Right Foot, Partial 4th Ray, Open Approach (ICD-10-PCS; 2017-07-29)
PROC: 0QBN0ZX Excision of Right Metatarsal, Open Approach, Diagnostic (ICD-10-PCS; 2017-07-29)
DX: A41.9 Sepsis, unspecified organism (principal); A48.0 Gas gangrene; N17.9 Acute kidney failure, unspecified; M00.9 Pyogenic arthritis, unspecified; E11.52 Type 2 diabetes mellitus with diabetic peripheral angiopathy with gangrene; E87.1 Hypo-osmolality and hyponatremia; L02.212 Cutaneous abscess of back [any part, except buttock and flank]; M86.9 Osteomyelitis, unspecified; L03.031 Cellulitis of right toe; E11.621 Type 2 diabetes mellitus with foot ulcer; Z91.14 Patient's other noncompliance with medication regimen; L97.519 Non-pressure chronic ulcer of other part of right foot with unspecified severity; E11.65 Type 2 diabetes mellitus with hyperglycemia; E11.69 Type 2 diabetes mellitus with other specified complication; Z89.512 Acquired absence of left leg below knee; F12.90 Cannabis use, unspecified, uncomplicated; R65.20 Severe sepsis without septic shock; Z86.14 Personal history of Methicillin resistant Staphylococcus aureus infection; F17.210 Nicotine dependence, cigarettes, uncomplicated; Z80.0 Family history of malignant neoplasm of digestive organs; Z82.49 Family history of ischemic heart disease and other diseases of the circulatory system; Z83.3 Family history of diabetes mellitus; I87.8 Other specified disorders of veins; E11.22 Type 2 diabetes mellitus with diabetic chronic kidney disease; N18.9 Chronic kidney disease, unspecified; E66.9 Obesity, unspecified; Z89.421 Acquired absence of other right toe(s)
CPT/HCPCS: 73610; 73630; 73720; 76882; 76937; 80048; 80053; 80069; 80202; 82565; 82948; 83036; 83605; 83735; 85025; 85610; 85730; 86140; 87015; 87040; 87070; 87102; 87116; 87205; 87206; 88304; 88305; 88307; 88311; 93005; 93922; 96365; 96368; 96375; A9579; J0696; J1170; J1644; J1815; J2250; J2270; J2370; J2405; J2543; J2765; J3010; J3370; J7030; J7040; J7050; J7120; L2114

== ENCOUNTER 2017-08-03 09:55 | Emergency (ER) | payer OTHER ==
[~2017-08-03] VITALS: Ht 180.3 cm; Wt 100.0 kg
[~2017-08-03 09:55] MED LIST changes: +DILA2TAB4 PO; +GLIP1TAB49 PO; +GLUCKIT15; +GLUCTES12; +INSU-99; +INSU1INJ5 SQ; +LANCETS1 MI1; +LEVEMIR SQ; -LIDOCAINE HCL 1% PF 5 ML SYRINGE OTHER ONE; -PHENYLEPH/NS 1000 MCG/10 ML SYR IV ONE; +PREG25 PO; -PROPOFOL 200 MG/20 ML AMP IV ONE; -SODIUM CHLORIDE 0.9% 10 ML VIAL IV ONE; +ZYVO600T PO
[2017-08-03 10:01] VITALS: BP 173/84; PULSE 83; RESP 16; TEMP 99.1; O2SAT 95
[2017-08-03] MEDS ORDERED: PROCHLORPERAZINE INJ 10 MG/2 ML VIAL IV PUSH ONE (11:00)
[2017-08-03] MEDS ORDERED: HYDROmorphone HCL PF 2 MG/ML VIAL IVS ONE (11:00)
[2017-08-03 11:10] VITALS: BP 153/73; PULSE 81; RESP 17; O2SAT 97
[2017-08-03 11:25] LABS: AUTOMATED NEUTROPHIL # 4.3 TH/MM3 (1.8-7.7); BASOPHIL # 0.1 TH/MM3 (0-0.2); BASOPHIL % 1.3 % (0.0-2.0); EOSINOPHIL # 0.1 TH/MM3 (0-0.4); EOSINOPHIL % 1.6 % (0.0-4.0); HEMATOCRIT 34.1 % (39.0-51.0); HEMOGLOBIN 11.5 GM/DL (13.0-17.0); LYMPH % 24.5 % (9.0-44.0); LYMPHOCYTE # 1.6 TH/MM3 (1.0-4.8); MEAN CELL VOLUME 87.4 FL (80.0-100.0); MEAN CORPUSCULAR HEMOGLOBIN 29.6 PG (27.0-34.0); MEAN CORPUSCULAR HGB CONC 33.8 % (32.0-36.0); MEAN PLATELET VOLUME 6.5 FL (7.0-11.0); MONO % 6.8 % (0.0-8.0); MONOCYTE # 0.5 TH/MM3 (0-0.9); NEUT % 65.8 % (16.0-70.0); PLATELET COUNT 337 TH/MM3 (150-450); RED CELL DISTRIBUTION WIDTH 13.1 % (11.6-17.2); WHITE BLOOD COUNT 6.6 TH/MM3 (4.0-11.0)
[2017-08-03 11:45] LABS: BICARBONATE 23.9 MEQ/L (21.0-32.0); CALCIUM 9.5 MG/DL (8.5-10.1)
--- NOTE | 2017-08-03 11:55 | PD ---
HPI Chief Complaint: Pain: Acute or Chronic Time Seen by Provider: 10:06 Travel History International Travel<30 days: No Contact w/Intl Traveler<30days: No Traveled to known affect area: No History of Present Illness HPI This is a 52-year-old male history diabetes mellitus, who was discharged from hospital 2 days ago after having amputation of his right fourth and fifth toes. Patient presents today with increasing swelling and severe pain in his right foot. Patient states that he was discharged with hydromorphone however the medication has not working. He states that the pain is unbearable. He is wearing his boot however he states that he can barely ambulate because of this. PFSH Past Medical History Anxiety: No Depression: No Cancer: No Cardiovascular Problems: No Diabetes: Yes Patient Takes Glucophage: No Diminished Hearing: No Endocrine: No Genitourinary: No Immune Disorder: No Musculoskeletal: No Neurologic: No Psychiatric: No Reproductive: No Respiratory: No Social History Alcohol Use: Yes Tobacco Use: Yes Substance Use: Yes (MARIJUANA, COCAINE) Allergies-Medications (Allergen,Severity, Reaction): Coded Allergies: Tetanus Vaccines and Toxoid (Verified Allergy, Intermediate, ARM SWELLING , VOMITING, 08/03/17) Reported Meds & Prescriptions Reported Meds & Active Scripts Active Dilaudid (Hydromorphone HCl) 2 Mg Tab 2 Mg PO Q6H PRN Dilaudid (Hydromorphone HCl) 2 Mg Tab 2 Mg PO Q8H PRN Zyvox (Linezolid) 600 Mg Tab 600 Mg PO Q12H 14 Days Glipizide ER (Glipizide) 5 Mg Luciana 5 Mg PO DAILY Take with breakfast or first main meal of the day. Review of Systems Except as stated in HPI: all other systems reviewed are Neg General / Constitutional: No: Fever, Chills HENT: No: Headaches, Lightheadedness Cardiovascular: No: Chest Pain or Discomfort, Palpitations Respiratory: No: Cough, Shortness of Breath Gastrointestinal: No: Nausea, Vomiting, Abdominal Pain Musculoskeletal: Positive: Limited ROM (Secondary to pain), Edema, Pain (10 out of 10 to the right foot) Skin: Positive Other (Postsurgical wound on the right foot) Neurologic: No: Dizziness, Headache Physical Exam Narrative GENERAL: Well-nourished, well-developed patient in a significant amount of pain.. SKIN: Focused skin assessment warm/dry. HEAD: Normocephalic/atraumatic. EYES: No scleral icterus. No injection or drainage. NECK: Supple, trachea midline. No JVD or lymphadenopathy. CARDIOVASCULAR: Regular rate and rhythm without murmurs, gallops, or rubs. RESPIRATORY: Breath sounds equal bilaterally. No accessory muscle use. GASTROINTESTINAL: Abdomen soft, non-tender, nondistended. MUSCULOSKELETAL: Status post left BKA. On examination patient's right foot, there is some serous drainage noted in the wound dressing. There is also sutures in place from his fourth and fifth toe amputation site. There is no obvious purulent drainage noted. NEUROLOGICAL: Awake and alert. Cranial nerves II through XII intact. Motor within normal limits. Five out of 5 muscle strength in all muscle groups. Normal speech. Left BKA. Data Data Last Documented VS Vital Signs Date Time Temp Pulse Resp B/P (MAP) Pulse Ox O2 Delivery O2 Flow Rate FiO2 08/03/17 11:10 81 17 153/73 (99) 97 Room Air 08/03/17 10:01 99.1 Orders Orders Complete Blood Count With Diff (08/03/17 10:49) Basic Metabolic Panel (Bmp) (08/03/17 10:49) Iv Access Insert/Monitor (08/03/17 10:49) Ecg Monitoring (08/03/17 10:49) Oximetry (08/03/17 10:49) Prochlorperazine Inj (Compazine Inj) (08/03/17 11:00) Hydromorphone Pf Inj (Dilaudid Pf Inj) (08/03/17 11:00) Hydromorphone Pf Inj (Dilaudid Pf Inj) (08/03/17 13:45) Labs Laboratory Tests Test 08/03/17 11:05 White Blood Count 6.6 TH/MM3 Red Blood Count 3.90 MIL/MM3 Hemoglobin 11.5 GM/DL Hematocrit 34.1 % Mean Corpuscular Volume 87.4 FL Mean Corpuscular Hemoglobin 29.6 PG Mean Corpuscular Hemoglobin Concent 33.8 % Red Cell Distribution Width 13.1 % Platelet Count 337 TH/MM3 Mean Platelet Volume 6.5 FL Neutrophils (%) (Auto) 65.8 % Lymphocytes (%) (Auto) 24.5 % Monocytes (%) (Auto) 6.8 % Eosinophils (%) (Auto) 1.6 % Basophils (%) (Auto) 1.3 % Neutrophils # (Auto) 4.3 TH/MM3 Lymphocytes # (Auto) 1.6 TH/MM3 Monocytes # (Auto) 0.5 TH/MM3 Eosinophils # (Auto) 0.1 TH/MM3 Basophils # (Auto) 0.1 TH/MM3 CBC Comment DIFF FINAL Differential Comment Blood Urea Nitrogen 5 MG/DL Creatinine 0.74 MG/DL Random Glucose 152 MG/DL Calcium Level 9.5 MG/DL Sodium Level 138 MEQ/L Potassium Level 3.9 MEQ/L Chloride Level 102 MEQ/L Carbon Dioxide Level 23.9 MEQ/L Anion Gap 12 MEQ/L Estimat Glomerular Filtration Rate 111 ML/MIN MDM Medical Decision Making Medical Screen Exam Complete: Yes Emergency Medical Condition: Yes Medical Record Reviewed: Yes Differential Diagnosis Intractable pain versus infection versus worsening edema. Narrative Course 52-year-old male who status post amputation of his right fourth and fifth toes, presents here with intractable pain. Patient is received 2 doses of IV Dilaudid. The patient does not meet inpatient admission criteria. The plan is to treat him as an outpatient. We have arranged for Dr. Vazquez, physician who was caring for him when he was admitted to the hospital to right for more pain medication. The director of casework department has come to see the patient and will advise him on where to fill his prescription. The patient chooses to get his prescription filled tomorrow where he will pay no fee for this. Patient is amenable. He will have his wound changes per home health. We have changed the wound here in the emergency department and he is good until tomorrow. Diagnosis Primary Impression: Right foot pain Additional Impressions: Diabetes mellitus Status post right fourth and fifth toe amputation Additional Instructions: Failure prescription tomorrow for pain control. Med/Other Pt SpecificInfo: Prescription(s) given Scripts Hydromorphone (Dilaudid) 2 Mg Tab 2 MG PO Q6H Y for Pain Management, #30 TAB 0 Refills Prov: Aniket Vaqzuez MD 08/03/17 Disposition: 01 DISCHARGE HOME Condition: Stable Morteza Burgess MD Aug 03, 2017 11:55
[2017-08-03 12:06] LABS: CREATININE 0.74 MG/DL (0.60-1.30)
[2017-08-03] MEDS ORDERED: DILA2TAB4 PO ×2 (12:26→12:36)
[2017-08-03] MEDS ORDERED: HYDROmorphone HCL PF 1 MG/ML VIAL IV PUSH ONE (13:45)
[2017-08-03 15:33] VITALS: BP 156/84
== END 2017-08-03 15:33 | disposition home or self-care (01) ==
LOC: NEPC 09:55
DX: M79.671 Pain in right foot (principal); E11.9 Type 2 diabetes mellitus without complications; Z72.0 Tobacco use; Z79.84 Long term (current) use of oral hypoglycemic drugs
CPT/HCPCS: 80048; 85025; 96374; 96375; 96376; 99284; J0780; J1170